=== PATIENT | male | born 1970 | race Caucasian/White ===

== ENCOUNTER 2017-09-05 17:55 | Inpatient (IN) | payer SELFPAY ==
[2017-09-05] MEDS ORDERED: hydrALAZINE 20 MG/ML VIAL ONE (18:25)
[2017-09-05 18:42] LABS: #Basophils 0.1 thou/uL (0.0-0.2); #Eosinphils 0.6 thou/uL (0.0-0.7); #Lymphocytes 1.1 thou/uL (1.20-3.40); #Monocytes 0.4 thou/uL (0.11-0.59); #Neutrophils 3.9 thou/uL (1.40-6.50); %Basophils 1.4 % (0.0-1.0); %Eosinophils 9.4 % (0.0-10.0); %Lymphocytes 17.6 % (21.0-51.0); %Monocytes 7.2 % (0.0-10.0); %Neutrophils 64.4 % (42.0-75.0); Hemoglobin 13.3 g/dL (14.0-18.0); Mean Corpuscular HGB CONC 34.7 g/dL (32.0-36.0); Mean Corpuscular Hemoglobin 31.7 pg (27.0-31.0); Mean Corpuscular Volume 91.3 fL (78.0-98.0); Mean Platelet Volume 8.5 fL (7.4-10.4); Platelet Count 145 thou/uL (130-400); RBC Distribution Width 12.2 % (11.5-14.5); Red Blood Cell (RBC) Count 4.19 mill/uL (4.70-6.10)
[2017-09-05 19:01] LABS: ALT (SGPT) 53 U/L (8-55); AST (SGOT) 48 U/L (5-34); Alkaline Phosphatase 152 U/L (40-150); Anion Gap 13 mmol/L (10-20); BUN (Urea Nitrogen) 27 mg/dL (8.9-20.6); Bilirubin, Total 0.8 mg/dL (0.2-1.2); CK (CPK) 62 U/L (30-200); Calc. Creatinine Clearance 0 mL/min (70-130); Calcium 9.3 mg/dL (7.8-10.44); Carbon Dioxide 21 mmol/L (22-29); Chloride 104 mmol/L (98-107); Estimated GFR-MDRD 32; Globulin 3.1 g/dL (2.4-3.5); Glucose 93 mg/dL (70-105); Potassium 3.4 mmol/L (3.5-5.1); Protein, Total 7.1 g/dL (6.0-8.3); Sodium 135 mmol/L (136-145)
[2017-09-05 19:05] LABS: CKMB 1.8 ng/mL (0-6.6); Troponin I Less than 0.010 ng/mL (< 0.028)
[2017-09-05] MEDS ORDERED: Nitroglycerin 50 MG/250 ML BOT 250 ML ONE (19:36)
[2017-09-05] MEDS ORDERED: Ondansetron HCl/PF 4 MG/2 ML Vial IVP PRN (20:26)
[2017-09-05] MEDS ORDERED: Acetaminophen 325 MG TAB PO PRN (20:26)
--- NOTE | 2017-09-05 20:28 | RAD ---
CHEST ONE VIEW: HISTORY: Hypertensive crisis. COMPARISON: Chest radiograph from 08/01/2017. FINDINGS: The lungs are without focal air space consolidation, pneumothorax, or effusion. The cardiac silhouet te and the mediastinal contours are similar. No acute osseous abnormality. IMPRESSION: No acute intrathoracic abnormality. POS: HOME
[2017-09-05] MEDS ORDERED: niCARdipine HCl 25 MG in Sodium Chloride 0.9% 250 ML 240 ML IVPB SCH (20:30)
[2017-09-05] MEDS ORDERED: Carvedilol 25 MG TAB PO SCH (20:45)
[2017-09-05] MEDS ORDERED: hydrALAZINE 25 MG TAB PO SCH (21:00)
--- NOTE | 2017-09-05 21:06 | CT ---
CT BRAIN WITHOUT CONTRAST: HISTORY: Altered mental status. COMPARISON: CT brain from 08/01/2017. FINDINGS: There is no acute hemorrhage or infarct. No midline shift or mass effect. Extensive periventricular and deep white matter hypodensities are present. Old right lacunar infarct on the right. The calvarium is intact. The paranasal sinuses and mastoids are clear. IMPRESSION: Chronic changes. No acute intracranial abnormality. Chronic hypertension induced encephalopathy is a possibility. POS: HOME
[2017-09-05 21:29] LABS: Amphetamine Detected (NotDetected); Barbiturates Screen Not Detected (NotDetected); Benzodiazepine Screen Not Detected (NotDetected); Cocaine Metabolite Screen Not Detected (NotDetected); Medtox Control Line Valid? VALID (VALID); Medtox Reader # READER 1; Methadone Not Detected (NotDetected); Methamphetamine Detected (NotDetected); Opiate Screen Not Detected (NotDetected); Oxycodone Screen Not Detected (NotDetected); Phencyclidine (PCP) Not Detected (NotDetected); THC/Cannabinoid Screen Detected (NotDetected); Tricyclic Screen Not Detected (NotDetected)
[2017-09-05 23:03] VITALS: BMI 21.5
[2017-09-05] MEDS ORDERED: Melatonin 3 MG TAB PO SCH (23:30)
[2017-09-05 23:54] LABS: Amphetamine Detected (NotDetected); Barbiturates Screen Not Detected (NotDetected); Benzodiazepine Screen Not Detected (NotDetected); Cocaine Metabolite Screen Not Detected (NotDetected); Medtox Control Line Valid? VALID (VALID); Medtox Reader # READER 4; Methadone Not Detected (NotDetected); Methamphetamine Detected (NotDetected); Opiate Screen Not Detected (NotDetected); Oxycodone Screen Not Detected (NotDetected); Phencyclidine (PCP) Not Detected (NotDetected); THC/Cannabinoid Screen Detected (NotDetected); Tricyclic Screen Not Detected (NotDetected)
[2017-09-06 04:53] LABS: #Basophils 0.1 thou/uL (0.0-0.2); #Eosinphils 0.6 thou/uL (0.0-0.7); #Lymphocytes 1.1 thou/uL (1.20-3.40); #Monocytes 0.5 thou/uL (0.11-0.59); #Neutrophils 3.7 thou/uL (1.40-6.50); %Basophils 0.9 % (0.0-1.0); %Eosinophils 9.8 % (0.0-10.0); %Lymphocytes 18.6 % (21.0-51.0); %Monocytes 7.8 % (0.0-10.0); Hemoglobin 14.6 g/dL (14.0-18.0); Mean Corpuscular HGB CONC 34.1 g/dL (32.0-36.0); Mean Corpuscular Hemoglobin 31.3 pg (27.0-31.0); Mean Corpuscular Volume 91.8 fL (78.0-98.0); Mean Platelet Volume 8.4 fL (7.4-10.4); Platelet Count 148 thou/uL (130-400); RBC Distribution Width 12.4 % (11.5-14.5); Red Blood Cell (RBC) Count 4.69 mill/uL (4.70-6.10); White Blood Cell (WBC) Count 5.9 thou/uL (4.8-10.8)
[2017-09-06 05:31] LABS: Anion Gap 13 mmol/L (10-20); BUN (Urea Nitrogen) 26 mg/dL (8.9-20.6); Calc. Creatinine Clearance 45 mL/min (70-130); Calcium 9.4 mg/dL (7.8-10.44); Carbon Dioxide 22 mmol/L (22-29); Chloride 106 mmol/L (98-107); Estimated GFR-MDRD 33; Glucose 112 mg/dL (70-105); Potassium 3.6 mmol/L (3.5-5.1); Sodium 137 mmol/L (136-145)
--- NOTE | 2017-09-06 06:04 | HP ---
PRIMARY CARE PHYSICIAN: The patient had no PCP. CHIEF COMPLAINT: Headache, nausea, and vomiting. TIME OF EVALUATION: 8:20 p.m. HISTORY OF PRESENT ILLNESS: This is a 46 years old male with a past medical history of hypertension, noncompliance, patient ran out of medication for a few weeks now to the hospital after having sever e headache, associated with nausea and vomiting, with no clear triggers, no alleviating factors. The patient was found to have a very high blood pressure with a systolic 245, diastolic 145, the patient had a headache that was 10/10, that has improved with a decrease in the blood pressure levels. He a lso reported some associated chest pain. That getting better with a decrease of the blood pressure. REVIEW OF SYSTEMS: Constitutional: No fever, no chills. Generalized weakness. Respiratory: No co ugh, no sputum production or shortness of breath. Cardiovascular: The patient has chest pain, no pa lpitations, no shortness of breath. Gastrointestinal: The patient any nausea, vomiting, no diarrhea , no abdominal pain. Central nervous system: The patient had headache, dizziness, occasional feelin g of lightheaded, no neuro weakness. Genitourinary: No burning on urination. Extremities: No leg swelling. PAST MEDICAL HISTORY: Hepatitis C, hypertension, non ST elevation myocardial infarction, kidney fail ure. PAST SURGICAL HISTORY: No surgical history. PSYCHIATRIC HISTORY: No previous psychiatric history. SOCIAL HISTORY: No alcohol, no drugs, every day smoker. FAMILY HISTORY: Reviewed and noncontributory to current presentation. KNOWN ALLERGIES: No known drug allergies. REPORTED MEDICATIONS: Hydralazine 100 mg 3 times a day. PHYSICAL EXAMINATION: VITAL SIGNS: Blood pressure on presentation 230/137, heart rate 65, respiratory rate was 16, tempera ture 98. Headache was 10/10. GENERAL APPEARANCE: The patient is alert, oriented, in mild distress due to headache and chest pain. HEENT: Eyes: Normal conjunctiva. Moist oral mucosa. Anicteric. NECK: No JVD. RESPIRATORY: Bilateral air entry. No rales, no wheezing. Symmetric expansion. CARDIOVASCULAR: The patient is very hypertensive. Normal rate, regular rhythm. No murmurs, no gall op, no edema. ABDOMEN: Soft, normal bowel sounds. MUSCULOSKELETAL: Baseline range of motion and strength. No tenderness. SKIN: Warm and intact. No pallor rash or redness. NEUROLOGIC: Baseline sensory. No evidence of any new focal weakness; however, the patient has head ache and reported blurred vision. Cranial nerves seem to be intact. PSYCHIATRIC: Good mood. No anxiety, oriented, optimal judgement. EKG was reviewed and discussed with the performance physician from ER. The patient has normal sinus rhythm with a rate of 66, no evidence of any acute ischemic event, left heart enlargement. CARDIOLOGY INTERPRETATION: Head CT was negative without contrast. Chest x-ray showed no infiltrates , no pneumothorax, and no acute findings. LABORATORY DATA: Reviewed. The patient has a white count of 10, hemoglobin 13.3, MCV 91.3, platelet count 145. Chemistry: Sodium 135, potassium 3.4, chloride 104, carbon dioxide 21, anion gap 13, BU N 27, creatinine 2.27, in previous admission the patient has creatinine 2.55. LFTs were normal. Tro ponin has been negative x3. Beta natriuretic peptide 788. Urine drug screen: The patient has metha mphetamine positive and cannabinoids. ASSESSMENT AND PLAN: The patient will be placed in the hospital with the following medical problems. 1. Hypertensive emergency. The patient presented with systolic 245 with diastolic 145, likely chris ered by drug intoxication, and also probably a component from patient has been noncompliant with bloo d pressure medications, but the patient presented with acute encephalopathy secondary to hypertension given nausea, vomiting, headache, dizziness, blurry vision that improved with lowering the blood pre ssure. We will continue Cardene drip, monitor in ICU or adjust the treatment as needed. 2. Methamphetamine abuse, patient denies consuming drugs, this can be discussed with the patient onc e more stable to advise him to stop using drugs. 3. Hyponatremia, 135, is normal, we will monitor, no need for any acute intervention. 4. Mild hypokalemia, potassium 3.4, we will replace electrolytes as needed. 5. Chronic kidney disease. The patient has BUN 27, creatinine 2.27 that was noted on the previous a dmissions of creatinine, we will reconcile home medications, we will adjust the treatment as needed. 6. Medical noncompliance. He has been advised to follow up with primary doctor and take his medicat ions every day. 7. Deep venous thrombosis prophylaxis. Critical care time spent more than 10 minutes and bedside assessment, coordination of care, stabiliza tion of patient and review ____ records.
[2017-09-06] MEDS ORDERED: Carvedilol 25 MG TAB PO SCH ×2 (08:00→09:00)
[2017-09-06] MEDS: hydrALAZINE 25 MG TAB PO SCH ×2 (08:17→17:20)
[2017-09-06] MEDS ORDERED: NIFEdipine XL 60 MG TAB PO SCH (09:00)
[2017-09-06] MEDS ORDERED: cloNIDine 0.1 MG TAB PO SCH ×2 (12:00→21:00)
[2017-09-06 17:22] VITALS: BP 133/85
[2017-09-06 18:08] VITALS: TEMP 97.8
--- NOTE | 2017-09-07 01:08 | CON ---
DATE OF CONSULTATION: 09/06/2017 HISTORY OF PRESENT ILLNESS: Mr. Chun is a 46-year-old male who was admitted with hypertension, head ache, nausea, and vomiting. He admitted to using methamphetamine the day prior to admission, but saying what the day he was admit emilee. He admits that he is a heavy meth user in the past and said he has been "trying to cut back," but yusuf y quickly acknowledges that he has problems saying note to his friends, who also used meth. He says he feels back to his baseline. PAST MEDICAL HISTORY: Remarkable for hepatitis C, hypertension, myocardial infarction and kidney dang lure that is chronic. He is not on dialysis. He smokes and actually called one of his friends who give him a ride home today and asked him to pick pack of cigarettes on the way to the hospital. He was supposed to be on hydralazine, but admits he was not taking medicine. He says he is not going to the doctor and told the nurses that he has no plans to follow up with a ph ysician. PHYSICAL EXAMINATION: VITAL SINGS: Blood pressure 120/85, heart rate 68, respiratory rates in the teens. HEAD AND NECK: Unremarkable. LUNGS: Clear. HEART: Regular rhythm, no S3. He does have an S4. ABDOMEN: Soft and nontender. EXTREMITIES: Without clubbing, cyanosis, or edema. LABORATORY DATA: White count 5.9, hemoglobin 14.6, platelets 148. Creatinine is 2.21, is 2.27 on ad mission, his creatinine has been between 2 and 3.8 since early last year. IMPRESSION: 1. Chronic methamphetamine use. 2. Likely hypertensive renal disease. 3. Medical noncompliance. Discussed his risk ____ intracranial hemorrhage if he continues to use meth and not take hypertension medications. There is no reason to keep him in the hospital given that he is back to his baseline. Prescription f or Catapres was written by me for 1 month, have to find a physician to care for him as an outpatient. He is stable for discharge in my opinion.
== END 2017-09-06 18:00 | disposition home or self-care (01) | DRG 305 ==
LOC: ERS 17:55 → CCU 22:28
PROVIDERS: ADMIT Hospitalist; ATTEND Hospitalist
DX: I16.1 Hypertensive emergency (principal); E87.1 Hypo-osmolality and hyponatremia; I12.9 Hypertensive chronic kidney disease with stage 1 through stage 4 chronic kidney disease, or unspecified chronic kidney disease; N18.9 Chronic kidney disease, unspecified; F15.10 Other stimulant abuse, uncomplicated; B18.2 Chronic viral hepatitis C; F17.210 Nicotine dependence, cigarettes, uncomplicated; I25.2 Old myocardial infarction; Z91.14 Patient's other noncompliance with medication regimen; Z79.899 Other long term (current) drug therapy
CPT/HCPCS: 36415; 70450; 71045; 80048; 80053; 80306; 82553; 83880; 84484; 85025; 93005; 96365; 96366; 96374; J0360; J7050

== ENCOUNTER 2017-10-21 16:54 | Inpatient (IN) | payer SELFPAY ==
[2017-10-21 17:21] LABS: #Basophils 0.1 thou/uL (0.0-0.2); #Eosinphils 0.3 thou/uL (0.0-0.7); #Lymphocytes 0.7 thou/uL (1.20-3.40); #Monocytes 0.3 thou/uL (0.11-0.59); #Neutrophils 4.7 thou/uL (1.40-6.50); %Basophils 1.2 % (0.0-1.0); %Eosinophils 4.3 % (0.0-10.0); %Lymphocytes 11.5 % (21.0-51.0); %Monocytes 5.6 % (0.0-10.0); %Neutrophils 77.5 % (42.0-75.0); Hemoglobin 14.5 g/dL (14.0-18.0); Mean Corpuscular HGB CONC 34.8 g/dL (32.0-36.0); Mean Corpuscular Hemoglobin 31.8 pg (27.0-31.0); Mean Corpuscular Volume 91.5 fL (78.0-98.0); Mean Platelet Volume 7.9 fL (7.4-10.4); Platelet Count 221 thou/uL (130-400); RBC Distribution Width 12.1 % (11.5-14.5); Red Blood Cell (RBC) Count 4.57 mill/uL (4.70-6.10)
--- NOTE | 2017-10-21 17:38 | RAD ---
CHEST ONE VIEW: 10/21/17 HISTORY: Hypertension. COMPARISON: 09/05/17. FINDINGS: The cardiac silhouette is magnified by projection. Pulmonary vasculature unremarkable. Mediastinum is midline. No lobar consolidation or evidence of pneumothorax. The cardiac technologist leads overlie the c hest. IMPRESSION: No active cardiopulmonary abnormalities are demonstrated. POS: KEL
[2017-10-21 17:44] LABS: ALT (SGPT) 42 U/L (8-55); AST (SGOT) 34 U/L (5-34); Albumin 3.8 g/dL (3.5-5.0); Alkaline Phosphatase 106 U/L (40-150); Anion Gap 15 mmol/L (10-20); BUN (Urea Nitrogen) 30 mg/dL (8.9-20.6); Bilirubin, Total 0.5 mg/dL (0.2-1.2); CK (CPK) 85 U/L (30-200); Calc. Creatinine Clearance 0 mL/min (70-130); Calcium 9.4 mg/dL (7.8-10.44); Carbon Dioxide 15 mmol/L (22-29); Chloride 108 mmol/L (98-107); Estimated GFR-MDRD 29; Globulin 3.7 g/dL (2.4-3.5); Glucose 106 mg/dL (70-105); Potassium 4.5 mmol/L (3.5-5.1); Protein, Total 7.5 g/dL (6.0-8.3); Sodium 133 mmol/L (136-145)
[2017-10-21 17:48] LABS: CKMB 2.9 ng/mL (0-6.6); Troponin I Less than 0.010 ng/mL (< 0.028)
[2017-10-21] MEDS ORDERED: diphenhydrAMINE 25 MG CAP ONE (18:00)
[2017-10-21] MEDS ORDERED: Metoclopramide HCl 10 MG TAB ONE (18:00)
[2017-10-21] MEDS ORDERED: Nitroglycerin 2% Ointment 1 INCH/1 GM Packet ONE (18:11)
[2017-10-21] MEDS ORDERED: Labetalol HCl 100 MG/20 ML VIAL ONE (18:45)
[2017-10-21] MEDS ORDERED: Senokot 8.6 MG TAB PO PRN ×2 (18:55)
[2017-10-21] MEDS ORDERED: Acetaminophen 325 MG TAB PO PRN (18:55)
[2017-10-21] MEDS ORDERED: cloNIDine 0.1 MG TAB PO PRN (18:55)
[2017-10-21] MEDS ORDERED: Benzonatate 100 MG CAP PO PRN (18:55)
[2017-10-21] MEDS ORDERED: Diabetic Tussin 200 MG/10 ML UDCUP PO PRN (18:55)
[2017-10-21] MEDS ORDERED: Mag-Al 1200 mg/1200 mg/30 ML UDCUP PO PRN (18:55)
[2017-10-21] MEDS ORDERED: Ondansetron HCl/PF 4 MG/2 ML Vial IVP PRN ×2 (18:55)
[2017-10-21] MEDS ORDERED: hydrALAZINE 20 MG/ML VIAL SLOW IVP PRN (18:55)
[2017-10-21] MEDS ORDERED: Bisacodyl 5 MG TAB PO PRN ×2 (18:55)
[2017-10-21] MEDS ORDERED: Nitroglycerin 0.4 MG TAB (25 Tab Bottle) SL PRN (18:55)
[2017-10-21] MEDS ORDERED: Calcium Carbonate 500 MG ChewTAB PO PRN (18:55)
[2017-10-21] MEDS ORDERED: traMADol HCl 50 MG TAB PO PRN (18:55)
[2017-10-21] MEDS ORDERED: hydrALAZINE 20 MG/ML VIAL ONE (19:27)
--- NOTE | 2017-10-21 20:05 | HP ---
DATE OF ADMISSION: 10/21/2017 PRIMARY CARE PHYSICIAN: None. CHIEF COMPLAINT: Headache and high blood pressure. HISTORY OF PRESENT ILLNESS: Mr. Chun is a 46-year-old male with known history of uncontrolled hyper tension and drug abuse as well as significant medical noncompliance, who presented to the ER with abo ve-mentioned complaint. History is mainly obtained by the patient himself and electronic medical rec ords have been reviewed. He was last admitted to our facility last month when he was seen for [facility] issues with hypertensive urgency. He was given prescription for clonidine and likely he was discha rge or left AMA, I am not sure. Today, he came back again with similar symptoms. He reports that he was seen in the emergency room a bout a month ago when he was found to have significant hypertension and was put on medications. He r eports that he took all the medications about a week ago when he ran out. Since then he has been not icing that he has significant headache and his blood pressure has been running very high. Upon presentation to the Emergency Room, his systolic blood pressure was in the 200 range and diastol ic in the 140s. He has received multiple medications since then and is now being admitted for [facility] evaluation and care. Please note that the emergency room referring nurse practitioner, Ms. Wallace has told me that the patient was being admitted for chest pain and ACS rule out, but the patient: At th is time, does not give any history of chest pain, chest discomfort, chest heaviness or any other symp toms suggestive of an ongoing acute coronary episode. His EKG and cardiac enzymes done in the emergency room are unremarkable. He does have elevated BNP a t 582, but is currently asymptomatic. PAST MEDICAL HISTORY: 1. Hypertension, uncontrolled. 2. History of hepatitis C. 3. Substance abuse. 4. Historically non-ST elevation myocardial, I am not sure this is a true diagnosis or not. 5. Chronic kidney disease, stage 3. 6. Severe left ventricular hypertrophy, likely hypertensive cardiomyopathy. 7. Medication noncompliance. PAST SURGICAL HISTORY: Denies any surgeries reviewed with the patient. PSYCHIATRIC HISTORY: No anxiety, no depression. SOCIAL HISTORY: He drinks occasionally and currently smokes 1 pack of cigarettes per day. Last meth amphetamine use was 2 days ago with possibly cocaine. FAMILY HISTORY: No significant family history of premature coronary artery disease or stroke. ALLERGIES: No known medication allergies. CURRENT MEDICATIONS: None. REVIEW OF SYSTEMS: Twelve-point review of system is done, it is negative except for those mentioned in the history and physical. LABORATORY DATA: CBC shows WBCs at 6, hemoglobin 14.5, platelet 221. Serum chemistry: Sodium 133, chloride 108, bicarb 15, BUN 30, creatinine 2.43, which seems to be at baseline. Cardiac enzymes unr emarkable. BNP 582, lipase 39. Chest x-ray by my review has no evidence to suggest pleural effusion , edema or infiltrate. Significant left ventricular hypertrophy is seen. A 12-lead EKG per the [facility] physician was unremarkable with normal sinus rhythm, no acute ST or T-wave changes. I do not have that for my evaluation at this time. PHYSICAL EXAMINATION: VITAL SIGNS: Upon presentation, blood pressure 175/127, pulse of 74, respirations 20, saturating 99% on room air. GENERAL: No acute distress, awake, alert, and oriented x3. He does appear somewhat ill. HEENT: Mucous membrane is moist and pink. No oropharyngeal exudate or erythema. Head is normocepha lic, atraumatic. Pupils equal, reactive to light and accommodation. Extraocular movement intact. NECK: Supple without any lymphadenopathy, JVD or bruit. CHEST: Clear to auscultation without any wheezing, rales, or rhonchi. Rate and rhythm is regular wi thout any murmur, rubs or gallops. ABDOMEN: Soft, nontender, nondistended with positive bowel sounds. EXTREMITIES: Free of any cyanosis, clubbing, or edema. NEUROLOGIC: Nonfocal. SKIN: Free of any rashes or bruises. Feels warm and dry to touch. IMPRESSION AND PLAN: 1. Hypertensive urgency. The patient's symptoms are exacerbated because of withdrawal symptoms from taking antihypertensives and then stopping as well as concomitant use of methamphetamines and possib ly cocaine. At this time, we are trying to get his blood pressure under better control with IV antih ypertensives in the emergency room. If it remains uncontrolled, he would not need to be started on n icardipine drip and admitted to be CCU. For now, he will be admitted to telemetry unit and we would add p.r.n. antihypertensives and start him on hydrochlorothiazide; lisinopril and Procardia and adjus t the medications as necessary. We will avoid beta blockers because of concomitant use of cocaine. Use benzodiazepine p.r.n. as well. We will use clonidine as needed as well as IV p.r.n. hydralazine. 2. Acute on chronic renal failure. The patient's creatinine is slightly bumped up from baseline, li hillary secondary to uncontrolled hypertension and end-organ damage. 3. History of hepatitis C, unknown status, likely chronic. 4. Chronic kidney disease, creatinine seems to be at baseline. Likely hypertensive chronic kidney d isease. 5. Left ventricular hypertrophy secondary to hypertension, currently asymptomatic. No evidence to s uggest acute coronary syndrome. We will continue to trend serial cardiac enzymes that the patient is asymptomatic. 6. History of drug abuse. 7. Patient has been extensively counseled and we will revisit this issue once he is ready for discha rge. 8. Noncompliance. 9. History of hypertension, restart medications as above. The patient will be provided prescription and he will be set up for outpatient followup with the primary care physician. 10. Code status: FULL CODE. Discussed with the patient. 11. Deep venous thrombosis and gastrointestinal prophylaxis. DISPOSITION: Mr. Chun is currently being admitted to the hospital for uncontrolled hypertension and hypertensive urgency Further management will depend upon his clinical course. Estimated length of stay at this time is at least 2-3 midnights.
[2017-10-21] MEDS ORDERED: Nitroglycerin 50 MG/250 ML BOT 250 ML ONE (20:46)
--- NOTE | 2017-10-21 20:46 | PDOC.EVN ---
Event Note - Event Note Event Note: Follow up note. Was called by ED to evaluate Hypertensive Emergency patient with BP >215 systolic. Patient BP cannot be controlled with lebatolol. Instructed ED to give nitro drip to keep BP 180 systolic and consult neurology. Will allow for permissive hypertension and follow up the patient in the Unit.
[2017-10-21 21:12] LABS: Troponin I Less than 0.010 ng/mL (< 0.028)
[2017-10-21 22:23] LABS: Amphetamine Detected (NotDetected); Barbiturates Screen Not Detected (NotDetected); Benzodiazepine Screen Not Detected (NotDetected); Cocaine Metabolite Screen Detected (NotDetected); Medtox Control Line Valid? VALID (VALID); Medtox Reader # READER 1; Methadone Not Detected (NotDetected); Methamphetamine Detected (NotDetected); Opiate Screen Not Detected (NotDetected); Oxycodone Screen Not Detected (NotDetected); Phencyclidine (PCP) Not Detected (NotDetected); THC/Cannabinoid Screen Detected (NotDetected); Tricyclic Screen Not Detected (NotDetected)
[2017-10-21 23:39] VITALS: BMI 21.6
[2017-10-21] MEDS ORDERED: Nitroglycerin 50 MG/250 ML BOT 250 ML IVPB PRN (23:46)
[2017-10-22] MEDS: HYDROcodone/Acetaminophen 5/325 mg Tablet PO PRN ×2 (00:35→04:04)
[2017-10-22] MEDS: Lisinopril 20 MG TAB PO SCH ×3 (00:35→20:49)
[2017-10-22] MEDS: Hydrochlorothiazide 25 MG TAB PO SCH ×2 (00:35→07:35)
[2017-10-22] MEDS: Famotidine 20 MG TAB PO SCH ×2 (00:35→20:49)
[2017-10-22 03:52] LABS: #Basophils 0.1 thou/uL (0.0-0.2); #Eosinphils 0.3 thou/uL (0.0-0.7); #Lymphocytes 0.9 thou/uL (1.20-3.40); #Monocytes 0.4 thou/uL (0.11-0.59); #Neutrophils 5.1 thou/uL (1.40-6.50); %Eosinophils 4.1 % (0.0-10.0); %Monocytes 6.1 % (0.0-10.0); %Neutrophils 75.8 % (42.0-75.0); Hemoglobin 13.3 g/dL (14.0-18.0); Mean Corpuscular HGB CONC 34.3 g/dL (32.0-36.0); Mean Corpuscular Hemoglobin 31.3 pg (27.0-31.0); Mean Corpuscular Volume 91.3 fL (78.0-98.0); Mean Platelet Volume 8.1 fL (7.4-10.4); Platelet Count 222 thou/uL (130-400); Red Blood Cell (RBC) Count 4.27 mill/uL (4.70-6.10); White Blood Cell (WBC) Count 6.7 thou/uL (4.8-10.8)
[2017-10-22 04:15] LABS: Anion Gap 12 mmol/L (10-20); BUN (Urea Nitrogen) 29 mg/dL (8.9-20.6); Calc. Creatinine Clearance 39 mL/min (70-130); Calcium 9.3 mg/dL (7.8-10.44); Carbon Dioxide 18 mmol/L (22-29); Chloride 108 mmol/L (98-107); Estimated GFR-MDRD 28; Glucose 151 mg/dL (70-105); Potassium 4.2 mmol/L (3.5-5.1); Sodium 134 mmol/L (136-145)
[2017-10-22] MEDS: NIFEdipine XL 30 MG TAB PO SCH ×2 (07:35→09:15)
[2017-10-22] MEDS: Lorazepam 1 MG TAB PO PRN ×2 (07:36→21:15)
[2017-10-22] MEDS ORDERED: Enoxaparin Sodium 40 MG/0.4 ML SYRINGE SC SCH (09:00)
[2017-10-22] MEDS: hydrALAZINE 25 MG TAB PO SCH ×3 (09:07→20:48)
[2017-10-22] MEDS: cloNIDine 0.1 MG TAB PO SCH ×2 (09:07→20:49)
[2017-10-22] MEDS ORDERED: NIFEdipine XL 30 MG TAB PO SCH (09:15)
[2017-10-22] MEDS: NIFEdipine XL 60 MG TAB PO SCH (09:16)
[2017-10-22] MEDS ORDERED: niCARdipine 40MG In NaCl 40 MG/200 ML BAG IVPB SCH (10:00)
[2017-10-22] MEDS: Sodium Chloride 0.9% 1,000 ML IV SCH ×3 (10:22→23:15)
[2017-10-22] MEDS: Heparin 5,000 UNITS/ML VIAL SC SCH ×2 (10:27→20:49)
--- NOTE | 2017-10-22 10:48 | CON ---
DATE OF CONSULTATION: 10/22/2017 REASON FOR CONSULTATION: Hypertension, out of control. HISTORY OF PRESENT ILLNESS: This patient was admitted to the hospital yesterday. He has been seen by our service several times in the past. He is 46 years old. He has hypertension, but does not see a doctor as an outpatient. He basically relies on the hospital to get his antihypertensive medications and when he runs out, he ends up back in the hospital. The patient is also a heavy substance abuse user including amphetamines, methamphetamines, cocaine and cannabinoids. PAST MEDICAL HISTORY: 1. Drug abuse. 2. Hypertension. 3. Hepatitis C. 4. Non-ST segment elevation myocardial infarction. 5. Chronic kidney disease. 6. LVH with diastolic dysfunction. PAST SURGICAL HISTORY: None. SOCIAL HISTORY: Substance abuse history as outlined above. He smokes 1 pack per day, drinks alcohol occasionally. FAMILY MEDICAL HISTORY: Unremarkable. ALLERGIES: None. MEDICATIONS PRIOR TO ADMISSION: None. REVIEW OF SYSTEMS: Otherwise, negative except for headache. PHYSICAL EXAMINATION: VITAL SIGNS: Temperature 97.6, pulse 76, blood pressure 182/97. He is currently on nitroglycerin drip, which is not affecting his blood pressure very much. HEENT: Pupils react. Sclerae are anicteric. Oropharynx clear. NECK: No adenopathy or JVD. CARDIAC: S1, S2 regular, 3/6 systolic murmur. LUNGS: Clear without wheezing or rhonchi. ABDOMEN: Soft, nontender, nondistended. EXTREMITIES: No clubbing, cyanosis, or edema. Multiple tattoos throughout. X-RAY FINDINGS: Chest x-ray demonstrates a normal heart size, no mass, effusion or infiltrate. LABORATORY DATA: Drug screen positive for amphetamines, methamphetamines, cocaine and cannabinoids. White blood cell count 6.7, hematocrit 38.9, platelet count 222. Sodium 134, potassium 4.2, chloride 108, CO2 18, BUN 29, creatinine 2.5, glucose 151. BNP 582. ASSESSMENT: 1. Hypertension, out of control. 2. Probably some degree of volume depletion. 3. Chronic kidney disease. 4. Substance abuse. PLAN: 1. Switch the nitroglycerin drip to a Cardene drip as that will be more effective. 2. Concurrently, continue his antihypertensive medications and hopefully wean the Cardene drip as his oral medications begin to kick in. 3. Start him on IV fluids as he is probably intravascularly depleted. 4. Follow his laboratory results. 5. Change Lovenox to heparin given chronic renal insufficiency. 70 minutes time was spent on this consult. Of that time >50% was spent with the patient, and/or on the patient's hospital unit MTDD
--- NOTE | 2017-10-22 11:50 | PDOC.PN ---
- Subjective Encounter Start Date: 10/22/17 Encounter Start Time: 11:49 Subjective: feels OK. no new complaints -: Transferred to CCu last night for uncontrolled HTN -: RN reports poor urine output - Objective MAR Reviewed: Yes Vital Signs & Weight: Vital Signs (12 hours) Temp Pulse Resp BP Pulse Ox 10/22/17 09:17 72 182/137 H 18 09:16 72 182/137 H 10/22/17 09:15 72 182/137 H 10/22/17 09:07 72 182/137 H 10/22/17 07:53 97.6 F 72 17 97 10/22/17 07:35 202/132 H 10/22/17 07:34 202/132 H 10/22/17 07:00 97.6 F 10/22/17 04:04 202/132 H 10/22/17 00:35 188/130 H Weight Weight 159 lb 6.307 oz Most Recent Monitor Data Heart Rate from ECG 89 NIBP 170/101 NIBP BP-Mean 123 Respiration from ECG 23 SpO2 96 I&O: 10/21/17 10/22/17 10/23/17 06:59 06:59 06:59 Intake Total 667 332.1 Balance 667 332.1 Result Diagrams: 10/22/17 03:18 10/22/17 03:18 Additional Labs: Laboratory Tests 08/01/17 09/05/17 09/06/17 11:59 18:32 04:30 Creatinine 2.55 H 2.27 H 2.21 H Ur Amphetamines Screen U Methamphetamines Scrn U Cocaine Metab Screen U Cannabinoids Screen 10/21/17 10/21/17 10/22/17 17:12 22:02 03:18 Creatinine 2.43 H 2.50 H Ur Amphetamines Screen Detected H U Methamphetamines Scrn Detected H U Cocaine Metab Screen Detected H U Cannabinoids Screen Detected H Phys Exam - Physical Examination Constitutional: NAD HEENT: PERRLA, moist MMs, sclera anicteric, TM's clear, oral pharynx no lesions Neck: no nodes, no JVD, supple, full ROM Respiratory: no wheezing, no rales, no rhonchi, clear to auscultation bilateral Cardiovascular: RRR, no significant murmur, no rub Gastrointestinal: soft, non-tender, no distention, positive bowel sounds Musculoskeletal: no edema, pulses present Neurological: non-focal, normal sensation, moves all 4 limbs Psychiatric: normal affect, A&O x 3 Skin: no rash Dx/Plan (1) Hypertensive emergency Code(s): I16.1 - HYPERTENSIVE EMERGENCY Status: Acute (2) [place]-tv-nxaoccv renal failure Code(s): N17.9 - ACUTE KIDNEY FAILURE, UNSPECIFIED; N18.9 - CHRONIC KIDNEY DISEASE, UNSPECIFIED Status: Acute Comment: Mild improvement in creatinine today. Renal consulted. (3) Dehydration Code(s): E86.0 - DEHYDRATION Status: Acute (4) Hepatitis C Code(s): B19.20 - UNSPECIFIED VIRAL HEPATITIS C WITHOUT HEPATIC COMA Status: Chronic (5) Tobacco abuse Code(s): Z72.0 - TOBACCO USE Status: Acute (6) Amphetamine abuse Code(s): F15.10 - OTHER STIMULANT ABUSE, UNCOMPLICATED Status: Chronic - Plan out of bed/ambulate, DVT proph w/heparin, DVT proph w/SCDs check PVR to r/o outlet obstruction.started on IVF.monitor UO -: restart hydralazine,clonidine.Increase procardia -: Stop HCTZ. cont Lisinopril.Avoid Bb d/t cocaine use -: Nephrology consulted for stremlining BP meds -: counseeling for ongoing drug,tobacco abuse * . Review of Systems - Review of Systems Constitutional: negative: fever, chills, sweats, weakness, malaise, other Respiratory: negative: Cough, Dry, Shortness of Breath, Hemoptysis, SOB with Excertion, Pleuritic Pain, Sputum, Wheezing Cardiovascular: negative: chest pain, palpitations, orthopnea, paroxysmal nocturnal dyspnea, edema, light headedness, other Gastrointestinal: negative: Nausea, Vomiting, Abdominal Pain, Diarrhea, Constipation, Melena, Hematochezia, Other Genitourinary: negative: Dysuria, Frequency, Incontinence, Hematuria, Retention , Other Musculoskeletal: negative: Neck Pain, Shoulder Pain, Arm Pain, Back Pain, Hand Pain, Leg Pain, Foot Pain, Other Skin: negative: Rash, Lesions, Lit, Bruising, Other Neurological: negative: Weakness, Numbness, Incoordination, Change in Speech, Confusion, Seizures, Other - Medications/Allergies Allergies/Adverse Reactions: Allergies Allergy/AdvReac Type Severity Reaction Status Date / Time No Known Allergies Allergy Verified 10/22/17 00:02 Medications: Current Medications Acetaminophen (Tylenol) 650 mg PO Q4H PRN PRN Reason: Headache/Fever or Pain Hydrocodone Bitart/Acetaminophen ([place] 5/325) 1 tab PO Q4H PRN PRN Reason: Moderate Pain (4-6) Last Admin: 10/22/17 04:04 Dose: 1 tab Al Hydroxide/Mg Hydroxide (Maalox) 30 ml PO Q6H PRN PRN Reason: Heartburn or Indigestion Benzonatate (Tessalon) 100 mg PO Q4H PRN PRN Reason: Cough Bisacodyl (Dulcolax) 10 mg PO DAILYPRN PRN PRN Reason: Constipation Calcium Carbonate (Tums) 1,000 mg PO Q4H PRN PRN Reason: Heartburn or Indigestion Clonidine (Catapres) 0.1 mg PO Q4H PRN PRN Reason: Systolic BP > 160 Last Admin: 10/22/17 04:04 Dose: 0.1 mg Clonidine (Catapres) 0.1 mg PO BID [facility] Last Admin: 10/22/17 09:07 Dose: 0.1 mg Famotidine (Pepcid) 20 mg PO QPM [facility] Last Admin: 10/22/17 00:35 Dose: 20 mg Guaifenesin (Robitussin Sf) 200 mg PO Q4H PRN PRN Reason: Cough Heparin Sodium (Porcine) (Heparin) 5,000 units SC BID [facility] Last Admin: 10/22/17 10:27 Dose: 5,000 units Hydralazine HCl (Apresoline) 10 mg SLOW IVP Q4H PRN PRN Reason: Systolic BP > 180 Hydralazine HCl (Apresoline) 100 mg PO TID [facility] Last Admin: 10/22/17 09:07 Dose: 100 mg Sodium Chloride (Normal Saline 0.9%) 1,000 mls @ 150 mls/hr IV .Q6H40M [facility] Last Admin: 10/22/17 10:22 Dose: 1,000 mls Nicardipine HCl 50 mg/ Sodium (Chloride) 250 mls @ 0 mls/hr IVPB INF [facility] Lisinopril (Zestril) 20 mg PO BID [facility] Last Admin: 09/08/18 07:34 Dose: 20 mg Lorazepam (Ativan) 1 mg PO Q4H PRN PRN Reason: Anxiety/Agitation Last Admin: 10/22/17 07:36 Dose: 1 mg Nifedipine (Procardia Xl) 60 mg PO DAILY [facility] Last Admin: 10/22/17 09:16 Dose: Not Given Nitroglycerin (Nitrostat) 0.4 mg SL Q5MIN PRN PRN Reason: Chest Pain Ondansetron HCl (Zofran) 4 mg IVP Q6H PRN PRN Reason: Nausea/Vomiting Senna (Senokot) 2 tab PO HSPRN PRN PRN Reason: Constipation Sodium Chloride (Flush - Normal Saline) 10 ml IVF Q12HR [facility] Last Admin: 10/22/17 09:17 Dose: 10 ml Sodium Chloride (Flush - Normal Saline) 10 ml IVF PRN PRN PRN Reason: Saline Flush Tramadol HCl (Ultram) 50 mg PO Q4H PRN PRN Reason: Moderate Pain (4-6)
[2017-10-22] MEDS: niCARdipine HCl 50 MG in Sodium Chloride 0.9% 250 ML 230 ML IVPB SCH ×2 (15:17→20:48)
--- NOTE | 2017-10-22 15:23 | CON ---
DATE OF CONSULTATION: 10/22/2017 NEPHROLOGY CONSULTATION REASON FOR CONSULTATION: Elevated creatinine. HISTORY OF PRESENT ILLNESS: This is a 46-year-old gentleman who presented to the hospital for hypert ension. The patient has had a history of CKD with elevated creatinine in the past. The patient's cr eatinine was 2.4 yesterday and 2.5 today. Prior baseline was around 2.1. His last episode of acute kidney injury was in 09/2016 with 3.8. His normal creatinine was in 03/2016 and since then his GFR h as dropped by at least 50%. The patient has a history of major drug use. PAST MEDICAL HISTORY: Hypertension, hepatitis C, known elevation, MT, LVH. SOCIOECONOMIC HISTORY: No alcohol use, drug use. FAMILY HISTORY: Negative for ESRD. ALLERGIES: Reviewed. REVIEW OF SYSTEMS: A 15-point review of systems was performed and was negative except for positives noted above. GENERAL: Weakness- HEAD: Headache- NECK: No swelling or lumps. NOSE: No epistaxis or discharge. EYES: No diplopia or pain. RESPIRATORY: Dyspnea- CARDIOVASCULAR: Chest pain- GASTROINTESTINAL: Nausea- /[employer]: Hematuria- MUSCULOSKELETAL: No joint pain. NEUROPSYCHIATIC SYSTEMS: No suicidal ideation. No ideation. SKIN: Denies any rash or ulcer. CONSTITUTIONAL: No fever or chills. PHYSICAL EXAMINATION: GENERAL: Patient is awake, alert. VITAL SIGNS: Afebrile, pulse 82, breathing 16, blood pressure 173/99. HEAD/NECK: Normocephalic. Atraumatic. EYES: EOMI. No deformity. EARS: Clear. No ulcers. NOSE: Intact. No lesions. MOUTH: Clear. No discharge. THROAT: Clear. No exudate. LUNGS: Clear. No crackles. CARDIAC: S1, S2. No rub. ABDOMEN: Benign. BS+. GENITALIA/RECTUM: Anton absent. BACK/EXTREMITIES: Edema 0+ Ulcer- NEUROLOGICAL: Alert and motor intact. SKIN: Rash- Bruise- LYMPHATICS: Edema- Ulcer- LABORATORY DATA: Show hemoglobin is 13.3 and creatinine 2.5. ASSESSMENT AND RECOMMENDATIONS: 1. Acute kidney injury with chronic kidney disease, most likely multifactorial due to hypertensive n ephrosclerosis. 2. Hypertension. Titrate the patient's current medication. 3. Anemia, stable. 4. Medications based on glomerular filtration rate are appropriate. We will evaluate for proteinuri a. No indication for dialysis.
--- NOTE | 2017-10-22 16:13 | ULT ---
BILATERAL RENAL ULTRASOUND COMPLETE: 10/22/17 HISTORY: 46-year-old male with history of acute kidney insufficiency and questionable renal lesion on CT. Right kidney measures 10.0 x 4.8 x 4.6 cm. The left kidney measures 10.3 x 5.8 x 4.8 cm. The liver ap pears to be enlarged with coarse heterogeneous echogenicity consistent with nonspecific hepatocellula r disease. Renal cortices appear hyperechoic bilaterally, evidence for nonspecific chronic renal dise ase. Small left renal cyst. There is a somewhat focal area of nodularity in the upper pole of the lef t kidney. This is nonspecific, it does not have the appearance of a typical cyst. Possibilities inclu de that of a solid mass versus complicated cyst versus some prominent focal renal cortical thickening . This ultrasound evaluation does not adequately evaluate this. The urinary bladder appears unremarka ble with other than questionable borderline bladder wall thickening. Bilateral ureteral jets are seen . No renal hydronephrosis. IMPRESSION: No renal hydronephrosis. Increased renal cortical echogenicity evidence for nonspecific renal disease . Coarse liver echogenicity consistent with nonspecific hepatocellular disease. Approximately 2 cm di ameter slightly nodular area off the upper pole of the left kidney inadequately evaluated on this ronnie dy. This appears to be in the same location that was seen on the prior 04/25/[address] sca n in this regard is suggested. If the patient cannot have IV contrast, then noncontrast CT scan would be of benefit. Questionable mild urinary bladder wall thickening. No other acute process. POS: [facility]
[2017-10-23] MEDS: Sodium Chloride 0.9% 1,000 ML IV SCH (05:26)
[2017-10-23 05:33] LABS: Anion Gap 11 mmol/L (10-20); BUN (Urea Nitrogen) 26 mg/dL (8.9-20.6); Calc. Creatinine Clearance 36 mL/min (70-130); Calcium 8.8 mg/dL (7.8-10.44); Carbon Dioxide 20 mmol/L (22-29); Chloride 110 mmol/L (98-107); Estimated GFR-MDRD 26; Glucose 90 mg/dL (70-105); Potassium 4.8 mmol/L (3.5-5.1); Sodium 136 mmol/L (136-145)
[2017-10-23] MEDS: cloNIDine 0.1 MG TAB PO SCH ×2 (08:50→20:27)
[2017-10-23] MEDS: NIFEdipine XL 60 MG TAB PO SCH (08:58)
[2017-10-23] MEDS: hydrALAZINE 25 MG TAB PO SCH ×3 (08:59→20:27)
[2017-10-23] MEDS: Heparin 5,000 UNITS/ML VIAL SC SCH ×2 (09:00→20:29)
[2017-10-23] MEDS: Lisinopril 20 MG TAB PO SCH ×2 (09:00→20:28)
--- NOTE | 2017-10-23 09:38 | PRG ---
DATE OF SERVICE: 10/23/2017 SUBJECTIVE: He has been weaned off the Cardene drip. He is doing well, no complaints. PHYSICAL EXAMINATION: VITAL SIGNS: Temperature is 98.3, pulse 80, blood pressure 146/89. A 24-hour intake 4094, output 44 00. HEENT: Unremarkable. NECK: No JVD. CHEST: Clear. CARDIAC: S1 and S2 regular, without murmur. ABDOMEN: Soft, nontender. EXTREMITIES: No edema. LABORATORY DATA: Sodium 136, potassium 4.8, chloride 110, CO2 20, BUN 26, creatinine 2.7, glucose 90 . ASSESSMENT: 1. Hypertensive crisis - from the patient not taking his usual blood pressure medication. 2. Volume depletion, which is better. 3. Chronic kidney disease. 4. Substance abuse. PLAN: The patient will be transferred to the floor. He can probably go home. He is homeless. He w ill need social work to address the possibility of getting him some medications prior to discharge. Pulmonary will sign off the case. Please recall if further assistance needed.
--- NOTE | 2017-10-23 12:45 | PDOC.PN ---
- Subjective Encounter Start Date: 10/23/17 Encounter Start Time: 12:43 Subjective: feels much better -: good urine output since yesterday -: no CP/SWANSON/SOB - Objective MAR Reviewed: Yes Vital Signs & Weight: Vital Signs (12 hours) Temp Pulse Resp BP Pulse Ox 10/23/17 09:00 143/81 H 10/23/17 08:59 93 143/81 H 10/23/17 08:58 90 143/81 H 10/23/17 08:50 143/81 H 10/23/17 08:00 98.6 F 93 12 98 10/23/17 04:00 98.3 F Weight Weight 159 lb 6.307 oz Most Recent Monitor Data Heart Rate from ECG 92 NIBP 137/75 NIBP BP-Mean 104 Respiration from ECG 18 SpO2 98 I&O: 10/22/17 10/23/17 10/24/17 06:59 06:59 06:59 Intake Total 667 4084.1 480 Output Total 4400 Balance 667 -315.9 480 Result Diagrams: 10/22/17 03:18 10/23/17 04:33 Phys Exam - Physical Examination Constitutional: NAD HEENT: PERRLA, moist MMs, sclera anicteric, oral pharynx no lesions Neck: no nodes, no JVD, supple, full ROM Respiratory: no wheezing, no rales, no rhonchi, clear to auscultation bilateral Cardiovascular: RRR, no significant murmur, no rub, gallop Gastrointestinal: soft, non-tender, no distention, positive bowel sounds Musculoskeletal: no edema, pulses present Neurological: non-focal, normal sensation, moves all 4 limbs Psychiatric: normal affect, A&O x 3 Skin: no rash Dx/Plan (1) Hypertensive emergency Code(s): I16.1 - HYPERTENSIVE EMERGENCY Status: Acute Comment: Better controlled. Off of Cardene (2) Pyhkk-ap-shqllky renal failure Code(s): N17.9 - ACUTE KIDNEY FAILURE, UNSPECIFIED; N18.9 - CHRONIC KIDNEY DISEASE, UNSPECIFIED Status: Acute Comment: .Stable.Renal consulted. (3) Dehydration Code(s): E86.0 - DEHYDRATION Status: Acute (4) Hepatitis C Code(s): B19.20 - UNSPECIFIED VIRAL HEPATITIS C WITHOUT HEPATIC COMA Status: Chronic (5) Tobacco abuse Code(s): Z72.0 - TOBACCO USE Status: Acute (6) Amphetamine abuse Code(s): F15.10 - OTHER STIMULANT ABUSE, UNCOMPLICATED Status: Chronic - Plan out of bed/ambulate, DVT proph w/SCDs BP stable and better. cont meds as below -: Pt extensively counselled for med compliance and drug/tobacco abstinence -: Will consult CM for med assistance -: encouraged for PCP set up -: [facility] in am if BP controlled.renal Fx stable-brent hypertensive CKD * . Review of Systems - Review of Systems Constitutional: negative: fever, chills, sweats, weakness, malaise, other Respiratory: negative: Cough, Dry, Shortness of Breath, Hemoptysis, SOB with Excertion, Pleuritic Pain, Sputum, Wheezing Cardiovascular: negative: chest pain, palpitations, orthopnea, paroxysmal nocturnal dyspnea, edema, light headedness, other Gastrointestinal: negative: Nausea, Vomiting, Abdominal Pain, Diarrhea, Constipation, Melena, Hematochezia, Other Genitourinary: negative: Dysuria, Frequency, Incontinence, Hematuria, Retention , Other Musculoskeletal: negative: Neck Pain, Shoulder Pain, Arm Pain, Back Pain, Hand Pain, Leg Pain, Foot Pain, Other Neurological: negative: Weakness, Numbness, Incoordination, Change in Speech, Confusion, Seizures, Other - Medications/Allergies Allergies/Adverse Reactions: Allergies Allergy/AdvReac Type Severity Reaction Status Date / Time No Known Allergies Allergy Verified 10/22/17 00:02 Medications: Current Medications Acetaminophen (Tylenol) 650 mg PO Q4H PRN PRN Reason: Headache/Fever or Pain Last Admin: 10/22/17 21:15 Dose: 650 mg Hydrocodone Bitart/Acetaminophen ([place] 5/325) 1 tab PO Q4H PRN PRN Reason: Moderate Pain (4-6) Last Admin: 10/22/17 04:04 Dose: 1 tab Al Hydroxide/Mg Hydroxide (Maalox) 30 ml PO Q6H PRN PRN Reason: Heartburn or Indigestion Benzonatate (Tessalon) 100 mg PO Q4H PRN PRN Reason: Cough Bisacodyl (Dulcolax) 10 mg PO DAILYPRN PRN PRN Reason: Constipation Calcium Carbonate (Tums) 1,000 mg PO Q4H PRN PRN Reason: Heartburn or Indigestion Clonidine (Catapres) 0.1 mg PO Q4H PRN PRN Reason: Systolic BP > 160 Last Admin: 10/22/17 04:04 Dose: 0.1 mg Clonidine (Catapres) 0.1 mg PO BID [facility] Last Admin: 10/23/17 08:50 Dose: 0.1 mg Famotidine (Pepcid) 20 mg PO QPM [facility] Last Admin: 10/22/17 20:49 Dose: 20 mg Guaifenesin (Robitussin Sf) 200 mg PO Q4H PRN PRN Reason: Cough Heparin Sodium (Porcine) (Heparin) 5,000 units SC BID [facility] Last Admin: 10/23/17 09:00 Dose: 5,000 units Hydralazine HCl (Apresoline) 10 mg SLOW IVP Q4H PRN PRN Reason: Systolic BP > 180 Hydralazine HCl (Apresoline) 100 mg PO TID [facility] Last Admin: 10/23/17 08:59 Dose: 100 mg Lisinopril (Zestril) 20 mg PO BID [facility] Last Admin: 10/23/17 09:00 Dose: 20 mg Lorazepam (Ativan) 1 mg PO Q4H PRN PRN Reason: Anxiety/Agitation Last Admin: 10/22/17 21:15 Dose: 1 mg Nifedipine (Procardia Xl) 60 mg PO DAILY [facility] Last Admin: 10/23/17 08:58 Dose: 60 mg Nitroglycerin (Nitrostat) 0.4 mg SL Q5MIN PRN PRN Reason: Chest Pain Ondansetron HCl (Zofran) 4 mg IVP Q6H PRN PRN Reason: Nausea/Vomiting Senna (Senokot) 2 tab PO HSPRN PRN PRN Reason: Constipation Sodium Chloride (Flush - Normal Saline) 10 ml IVF Q12HR [facility] Last Admin: 10/23/17 10:48 Dose: 10 ml Sodium Chloride (Flush - Normal Saline) 10 ml IVF PRN PRN PRN Reason: Saline Flush Tramadol HCl (Ultram) 50 mg PO Q4H PRN PRN Reason: Moderate Pain (4-6)
--- NOTE | 2017-10-23 13:25 | PRG ---
DATE OF SERVICE: 10/23/2017 SUBJECTIVE: This is a 46-year-old gentleman, who I have been seeing for acute kidney injury. The pa irene denies any nausea, vomiting, or chest pain. OBJECTIVE: See above. GENERAL: Patient is awake, alert. VITAL SIGNS: Afebrile, pulse 92, breathing at 16, blood pressure is 137/75. GENERAL APPEARANCE AND MENTAL STATUS: Fair. HEAD/NECK: Normocephalic. Atraumatic. EYES: EOMI. No deformity. EARS: Clear. No ulcers. NOSE: Intact. No lesions. MOUTH: Clear. No discharge. THROAT: Clear. No exudate. LUNGS: Clear. No crackles. CARDIAC: S1, S2. No rub. ABDOMEN: Benign. BS+. GENITALIA/RECTUM: Anton absent. BACK/EXTREMITIES: Edema 0+, ulcer. NEUROLOGICAL: Alert and motor intact. SKIN: Rash - bruise. LYMPHATICS: Edema - ulcer. LABORATORY DATA: Labs show creatinine 2.6, potassium 4.3. ASSESSMENT AND RECOMMENDATIONS: 1. Acute kidney injury with chronic kidney disease, most likely because of avascular tubular necrosi s as well as hypertensive nephrosclerosis. 2. Medication based on GFR, consider changing JODIE if the creatinine rises. 2. Left kidney noted to have a lesion. I would order CT. 3. Hypertension, stable. 4. Medications based on glomerular filtration rate are appropriate.
--- NOTE | 2017-10-23 14:01 | CT ---
ABDOMEN AND PELVIC CT SCAN WITHOUT IV COTNRAST: HISTORY: A 46-year-old male with a history of renal lesion, renal insufficiency. COMPARISON: Renal ultrasound 10/22/17. FINDINGS: There is a somewhat elongated pleural-based somewhat nodular density in the lingula having more of th e appearance of a scar, although this could represent a somewhat elongated nodule. Minimal increased interstitial linear changes in the posterior bases, possibly positional. The gallbladder is noted t o be small and contracted with a somewhat thickened gallbladder wall, but no pericholecystic fat stra nding. The pancreas, spleen, and adrenal glands appear unremarkable. No renal calculi or evidence f or acute obstruction. There is an approximately 1 cm diameter cyst involving the lateral cortex o f the mid left kidney. Area of concern on the prior ultrasound examination in the upper pole of the left kidney does not appear to represent a significant mass. No hydronephrosis. Normal-appearing ap pendix. No bowel obstruction, abscess, or abnormal fluid collection. Borderline bladder wall thicke micah. IMPRESSION: Small left renal cyst. Area of concern on prior ultrasound examination does not appear to represent a significant mass based on this CT. Somewhat elongated pleural-based nodule in the lingula, nonspec ific. Given its small size, no specific recommendations for followup are needed since it is less rowan n 0.6 cm and pleural-based. Small contracted gallbladder with a somewhat thickened gallbladder wall which may just be physiologic. No ductal dilatation. Normal-appearing appendix. Borderline urinary bladder wall thickening, nonspecific. POS: [facility]
[2017-10-23] MEDS: Famotidine 20 MG TAB PO SCH (20:30)
[2017-10-24 04:02] VITALS: TEMP 98.1
[2017-10-24] MEDS: NIFEdipine XL 60 MG TAB PO SCH (07:43)
[2017-10-24] MEDS: hydrALAZINE 25 MG TAB PO SCH (07:43)
[2017-10-24] MEDS: Lisinopril 20 MG TAB PO SCH (07:43)
[2017-10-24] MEDS: cloNIDine 0.1 MG TAB PO SCH (07:43)
[2017-10-24 07:44] VITALS: BP 159/99
[2017-10-24] MEDS: Heparin 5,000 UNITS/ML VIAL SC SCH (07:44)
[2017-10-24 09:42] LABS: Anion Gap 13 mmol/L (10-20); BUN (Urea Nitrogen) 34 mg/dL (8.9-20.6); Calc. Creatinine Clearance 36 mL/min (70-130); Calcium 9.4 mg/dL (7.8-10.44); Carbon Dioxide 21 mmol/L (22-29); Chloride 106 mmol/L (98-107); Estimated GFR-MDRD 26; Glucose 112 mg/dL (70-105); Potassium 4.9 mmol/L (3.5-5.1); Sodium 135 mmol/L (136-145)
--- NOTE | 2017-10-24 11:42 | PRG ---
DATE OF SERVICE: 10/24/2017 SUBJECTIVE: A 46-year-old male. The patient denies any nausea, vomiting, or chest pain. PHYSICAL EXAMINATION: GENERAL: Patient is awake, alert. VITAL SIGNS: Afebrile, pulse 90, breathing 16, blood pressure 159/90. OBJECTIVE: See above. Awake, alert, in no acute distress. GENERAL APPEARANCE AND MENTAL STATUS: Fair. HEAD/NECK: Normocephalic. Atraumatic. EYES: EOMI. No deformity. EARS: Clear. No ulcers. NOSE: Intact. No lesions. MOUTH: Clear. No discharge. THROAT: Clear. No exudate. LUNGS: Clear. No crackles. CARDIAC: S1, S2. No rub. ABDOMEN: Benign. BS+. GENITALIA/RECTUM: Anton absent. BACK/EXTREMITIES: Edema 0+ Ulcer- NEUROLOGICAL: Alert and motor intact. SKIN: Rash- Bruise- LYMPHATICS: Edema- Ulcer- LABORATORY: Hemoglobin 13.3, creatinine 2.7. ASSESSMENT AND RECOMMENDATIONS: 1. Acute kidney injury with chronic kidney disease stage 4, stable. 2. Hypertension, stable. 3. Anemia, stable. 4. Metabolic acidosis, stable. No indication for dialysis.
--- NOTE | 2017-10-25 00:37 | DIS ---
DATE OF ADMISSION: 10/21/2017 DATE OF DISCHARGE: 10/24/2017 CONDITION AT THE TIME OF DISCHARGE: Stable and improved. DISCHARGE DIAGNOSES: 1. Hypertensive emergency and urgency. 2. Acute on chronic kidney disease. 3. Methamphetamine abuse. 4. Cocaine abuse. 5. Hyponatremia. 6. Metabolic acidosis due to acute kidney injury. DISCHARGE MEDICATIONS: Hydralazine 100 mg p.o. 5, clonidine 0.1 mg p.o. b.i.d., nifedipine XL 60 mg daily, and lisinopril 20 mg p.o. b.i.d. CONSULTATIONS INHOUSE: 1. Nephrology, Dr. Sidhu. 2. Critical Care Medicine, Dr. Lorenzo and the patient was in the IMCU for hypertensive urgency. PROCEDURES DONE IN THE HOSPITAL: 1. Renal ultrasound which has no hydronephrosis or stones. There was question of a 2 cm nodular den sity in the left kidney. 2. CT scan of the abdomen and pelvis is unremarkable. Small left renal cyst was seen. HISTORY OF PRESENTING ILLNESS: Mr. Chun is a 46-year-old male with past medical history of drug abu se and hypertension, hepatitis C, chronic kidney disease stage 3 and severe left ventricular hypertro phy, likely hypertensive cardiomyopathy, who presented to the emergency room with complaints of heada mable and high blood pressure. His blood pressure was over 200s/140s on presentation. He was initiall y admitted to telemetry unit, but later for uncontrolled hypertension, he was transferred to the [facility] care unit needing IV drip of antihypertensives. Please see admission history and physical for f urther details. HOSPITAL COURSE: Various medications were tried eventually and the oral medications helped to lower the blood pressure and IV medications were tapered off. He was briefly seen by Dr. Lorenzo while he was in the critical care unit. He was found to have acute on chronic kidney insufficiency and Nephro logy was consulted. An ultrasound was done which was concerning for some left upper lobe, left kidne y nodule which was confirmed to be a left kidney cyst on CT scan. His renal function improved. He h as definitive evidence of chronic kidney disease which is likely hypertensive. He also has evidence of hypertensive heart disease and cardiomyopathy in the form of LVH. I had multiple discussions with him during his hospitalization and encouraged him to continue to take his medications. All the prescriptions were provided and he was helped by [facility] in procuring all the medications. Extensive drug, alcohol and tobacco abstinence counseling was provided to the patient. He was referred to [facility] and was encouraged highly to follow up w ith them on a daily basis. He was seen and examined prior to discharge. He is feeling much better. All of his questions answer ed. PHYSICAL EXAMINATION: VITAL SIGNS: His blood pressure is 159/99, saturating 96% on room air, afebrile, heart rate 69. GENERAL: No acute distress. CHEST: Clear to auscultation bilaterally. Rate and rhythm is regular. He will be discharged and he is given referral to [facility] for followup.
== END 2017-10-24 15:42 | disposition home or self-care (01) | DRG 305 ==
LOC: ERS 16:54 → CCU 23:19 → ONC 10-23 11:45
PROVIDERS: ADMIT Internal Medicine; ATTEND Internal Medicine
DX: I16.0 Hypertensive urgency (principal); I43 Cardiomyopathy in diseases classified elsewhere; N17.9 Acute kidney failure, unspecified; E87.1 Hypo-osmolality and hyponatremia; E87.2 Acidosis; I16.1 Hypertensive emergency; N18.3 Chronic kidney disease, stage 3 (moderate); I11.9 Hypertensive heart disease without heart failure; Z91.14 Patient's other noncompliance with medication regimen; F17.210 Nicotine dependence, cigarettes, uncomplicated; E86.0 Dehydration; B18.2 Chronic viral hepatitis C; F15.10 Other stimulant abuse, uncomplicated; F14.10 Cocaine abuse, uncomplicated; N28.1 Cyst of kidney, acquired; I13.10 Hypertensive heart and chronic kidney disease without heart failure, with stage 1 through stage 4 chronic kidney disease, or unspecified chronic kidney disease; Z59.0 Homelessness; I25.2 Old myocardial infarction
CPT/HCPCS: 36415; 71045; 74176; 76770; 80048; 80053; 80306; 82553; 83690; 83880; 84484; 85025; 93005; 94760; A4216; J0360; J1644; J1650; J7050

== ENCOUNTER 2018-07-12 02:07 | Inpatient (IN) | payer SELFPAY ==
[2018-07-12] MEDS ORDERED: Lidocaine 1% w/Epinephrine 1:100K 20 ML VIAL ONE (02:17)
[2018-07-12] MEDS ORDERED: Oxymetazoline HCl 0.05% (30 ML BOT) ONE (02:17)
[2018-07-12] MEDS ORDERED: Lorazepam 2 MG/ML VIAL ONE ×2 (02:37→10:07)
[2018-07-12 03:20] LABS: Cocaine Metabolite Screen Not Detected (NotDetected); Medtox Reader # READER 4; Methamphetamine Detected (NotDetected); Opiate Screen Not Detected (NotDetected); Phencyclidine (PCP) Not Detected (NotDetected); THC/Cannabinoid Screen Detected (NotDetected)
[2018-07-12 03:21] LABS: Amphetamine Detected (NotDetected); Barbiturates Screen Not Detected (NotDetected); Benzodiazepine Screen Not Detected (NotDetected); Medtox Control Line Valid? VALID (VALID); Methadone Not Detected (NotDetected); Oxycodone Screen Not Detected (NotDetected); Tricyclic Screen Not Detected (NotDetected)
[2018-07-12 03:26] LABS: #Basophils 0.2 thou/uL (0.0-0.2); #Eosinphils 0.3 thou/uL (0.0-0.7); #Lymphocytes 1.8 thou/uL (1.20-3.40); #Monocytes 0.5 thou/uL (0.11-0.59); %Basophils 1.5 % (0.0-1.0); %Eosinophils 2.1 % (0.0-10.0); %Lymphocytes 15.5 % (21.0-51.0); %Monocytes 4.3 % (0.0-10.0); %Neutrophils 76.5 % (42.0-75.0); Hemoglobin 11.9 g/dL (14.0-18.0); Mean Corpuscular HGB CONC 33.5 g/dL (32.0-36.0); Mean Corpuscular Hemoglobin 31.6 pg (27.0-31.0); Mean Corpuscular Volume 94.4 fL (78.0-98.0); Mean Platelet Volume 9.2 fL (7.4-10.4); Platelet Count 178 thou/uL (130-400); RBC Distribution Width 12.5 % (11.5-14.5); Red Blood Cell (RBC) Count 3.78 mill/uL (4.70-6.10); White Blood Cell (WBC) Count 11.8 thou/uL (4.8-10.8)
[2018-07-12 03:48] LABS: ALT (SGPT) 76 U/L (8-55); AST (SGOT) 49 U/L (5-34); Albumin 4.1 g/dL (3.5-5.0); Alkaline Phosphatase 87 U/L (40-150); Anion Gap 18 mmol/L (10-20); BUN (Urea Nitrogen) 81 mg/dL (8.9-20.6); Calc. Creatinine Clearance 0 mL/min (70-130); Carbon Dioxide 15 mmol/L (22-29); Chloride 110 mmol/L (98-107); Estimated GFR-MDRD 23; Globulin 2.7 g/dL (2.4-3.5); Glucose 137 mg/dL (70-105); INR-International Normal Ratio 1.1; PTT 26.5 SEC (22.9-36.1); Potassium 4.3 mmol/L (3.5-5.1); Protein, Total 6.8 g/dL (6.0-8.3); Prothrombin Time 14.2 SEC (12.0-14.7); Sodium 139 mmol/L (136-145)
[2018-07-12 03:54] LABS: Acetaminophen Less than 6.0 mcg/mL (10.0-30.0); Alcohol Less than 10 mg/dL (Less than 10); Salicylate Less than 8.0 mg/dL (15.0-30.0)
[2018-07-12 04:17] LABS: CKMB 5.5 ng/mL (0-6.6)
[2018-07-12] MEDS ORDERED: Aspirin 325 MG TAB ONE (05:03)
[2018-07-12 07:01] LABS: Troponin I 0.156 ng/mL (< 0.028)
[2018-07-12] MEDS ORDERED: Acetaminophen 325 MG TAB PO PRN (07:11)
[2018-07-12] MEDS ORDERED: Ondansetron PF 4 MG/2 ML Vial IVP PRN (07:11)
[2018-07-12] MEDS ORDERED: Ondansetron ODT 4 MG TAB PO PRN (07:11)
[2018-07-12 07:43] VITALS: BMI 23.7
[2018-07-12 09:11] LABS: Hemoglobin 10.7 g/dL (14.0-18.0)
[2018-07-12 09:32] LABS: Troponin I 0.215 ng/mL (< 0.028)
[2018-07-12] MEDS: Lorazepam 2 MG/ML VIAL SLOW IVP PRN ×2 (10:08→11:03)
[2018-07-12] MEDS ORDERED: Diazepam 10 MG/2 ML SYRINGE IVP SCH (10:15)
[2018-07-12] MEDS ORDERED: Lorazepam 2 MG/ML VIAL SLOW IVP PRN ×3 (14:09→14:11)
--- NOTE | 2018-07-12 15:27 | CON ---
DATE OF CONSULTATION: 07/12/2018 This is 40 minutes of critical care time. HISTORY OF PRESENT ILLNESS: The patient is a 47-year-old male, who apparently was transported to [place] via EMS yesterday with nose bleeding and hypertension. He initially went AMA, but then came back and was transported over here. He had some nasal tampons placed for nasal bleeding. He pulled those out earlier with significant clots. He is extremely agitated, will not follow commands. He is having to be heavily sedated. His blood pressure is out of control. Therefore, he is being moved to the CCU. PAST MEDICAL HISTORY: 1. Methamphetamine abuse. 2. Chronic hepatitis C. 3. Hypertension. 4. Non-ST segment elevation myocardial infarction. 5. Chronic kidney disease. 6. Left ventricular hypertrophy with diastolic dysfunction. PAST SURGICAL HISTORY: None. SOCIAL HISTORY: Smokes one pack per day in the past. He drinks alcohol occasionally. He uses methamphetamine. FAMILY MEDICAL HISTORY: Unremarkable. ALLERGIES: NONE. MEDICATIONS: Prior to admission, not known at this time. REVIEW OF SYSTEMS: Cannot be obtained secondary to the patient's agitation. PHYSICAL EXAMINATION: VITAL SIGNS: Heart rate 110, blood pressure 216/149, respiratory rate 26, O2 saturation 97%. GENERAL: The patient is acutely agitated. HEENT: Pupils are reactive. Sclerae anicteric. Oropharynx is clear. Nares have some old bleeding present. NECK: No JVD. LUNGS: Clear to auscultation. CARDIAC: S1 and S2. Regular. ABDOMEN: Soft, nontender. EXTREMITIES: No edema. He has multiple tattoos noted throughout his arms. IMAGING STUDIES: CT of the chest showed areas of decreased attenuation in the basal ganglia, thalamus, brainstem and cerebral hemispheres, suggestive of possible infarction. Chest x-ray demonstrates normal heart size, normal lung parson. LABORATORY DATA: Sodium 139, potassium 4.3, chloride 110, CO2 of 15, BUN 81, creatinine 2.9, glucose 137, AST 49, ALT 76. Troponin 0.215. White blood cell count 11.9, hematocrit 31.3, and platelet count 178. Tox screen positive for amphetamines, methamphetamines, and cannabinoids. ASSESSMENT: 1. Methamphetamine abuse/intoxication. 2. Dianelys. 3. Hypertension out of control-probably aggravated by methamphetamine. 4. Acute delirium. PLAN: 1. The patient will be placed in the CCU. He will be placed on a Precedex drip. He will be given Ativan for breakthrough needs. He will be placed on nicardipine with a goal blood pressure between 140 and 160 systolic. 2. Start IV thiamine. 3. We will follow. Job ID: [id number]
--- NOTE | 2018-07-12 16:18 | HP ---
CHIEF COMPLAINT: Epistaxis. HISTORY OF PRESENT ILLNESS: This patient is a 47-year-old male with a history of severe hypertension, chronic kidney disease, drug abuse, and medication noncompliance. The patient has been admitted to this facility several times in the past with severe hypertension and chest pain. The patient was apparently in his usual state of health. He was off all of his antihypertensives with the exception of carvedilol. His close friend/self-described girlfriend reports that she was unaware of his understanding of their relationship and she had some other man come around, which set the patient off and he responded by shooting methamphetamine. Subsequently, he awakened her at 4 o'clock in the morning yesterday seeking some help with epistaxis. The patient could not get control or make it stop and ultimately presented to the emergency department in [place]. There, the patient had packing placed. He was given Ativan, IV Cardene, aspirin, and some IV fluids. The patient subsequently left that facility against medical advice rather than being transferred here. His girlfriend says she went and picked up three days worth of some of his other antihypertensives and gave him some of those medications at that time. They went home and she was ultimately able to convince him to come here. He apparently pulled out one of the nasal packings and "sneezed out" the other one. She reports that his mental status and overall alertness have declined since he has been here. She also reports that three days ago she and other people that knew him had noted that he was having some changes with his mental status. They thought he was responding slower and having some slurring. Currently, the patient is unable to give any additional history. When the patient presented to the facility here, he had blood pressure of 123/88. He was given additional Ativan and additional aspirin. CT scan from [place] was reviewed that showed multiple acute infarctions of the basal ganglia, thalamus, cerebellum, and brainstem. REVIEW OF SYSTEMS: Not obtainable given the patient's mental status. PAST MEDICAL HISTORY: Based on prior admissions, the patient has uncontrolled hypertension, hepatitis C, drug abuse, history of MIs, chronic kidney disease stage 3, and severe left ventricular hypertrophy, although the most recent echocardiogram I can find is from 2017 and it shows LVH, but not what would be considered severe. He has a history of medication noncompliance. PAST SURGICAL HISTORY: None. SOCIAL HISTORY: The patient smokes a pack of cigarettes per day and uses methamphetamine. FAMILY HISTORY: No family history of premature coronary artery disease or stroke. CURRENT MEDICATIONS: The patient has only been taking carvedilol 25 b.i.d. He is supposed to be on, 1. Procardia XL 60 mg daily. 2. Zestril 20 mg b.i.d. 3. Hydralazine 100 mg t.i.d. 4. Clonidine 0.1 b.i.d., but has not been taking these medications. ALLERGIES: NONE KNOWN. PHYSICAL EXAMINATION: VITAL SIGNS: Temperature 97.6, pulse 87, respirations 20, O2 saturations 97% on room air, and BP is 168/121 and previous 186/112. GENERAL APPEARANCE: Age-appropriate male. He is asleep. He is responding to sternal rub, will mumble a little bit and then goes back out, but otherwise not fully coming awake or cooperating. HEENT: His pupils are round and equal, sluggish but reactive. There is dried blood within the nose, but no current active bleeding. He has no OP lesions. HEART: Regular rate and rhythm without murmurs, gallops, or rubs. LUNGS: Clear bilaterally with no wheeze or rales. ABDOMEN: Soft and nondistended. Positive bowel sounds. He does appear to have some tenderness to palpation in the epigastrium. EXTREMITIES: Warm and dry. No cyanosis, clubbing, or edema. NEUROLOGIC: As above. The patient appears to be a bit encephalopathic. LABORATORY DATA: White count 11.8, hemoglobin 11.9, and platelets 178. Coags are normal. Chemistries; sodium is 139, potassium 4.3, chloride 110, CO2 is 15, BUN 81, creatinine 2.94, GFR is 23, glucose 137, AST is 49, and ALT is 76. Troponin initially was 0.074, subsequent 0.156 and 0.215. Urine drug screen positive for amphetamine, methamphetamine, and cannabis. Plasma alcohol level is less than 10. CT scan of the brain, findings suspicious for extensive acute infarctions of the basal ganglia, thalami, brainstem, and cerebellar hemispheres. Chest x-ray is negative. EKG shows some LVH and nonspecific ST and T-wave changes. IMPRESSION AND PLAN: 1. Epistaxis, likely hypertensive related, had a nasal packing that has subsequently been removed by the patient. He does not appear to have active bleeding at this time. We will continue to monitor. We will call ENT only if he rebleeds. 2. Acute cerebrovascular accident with multiple areas of distribution. Per recommendations of radiology, we will go ahead and obtain an MRI to confirm these findings and ensure there is no evidence of bleeding. The patient has received aspirin. We will await the results of the MRI before being more aggressive with any aspirin. 3. Encephalopathy. It could be multifactorial from acute cerebrovascular accidents to hypertensive encephalopathy to drug related. 4. Acute on chronic kidney disease. The patient appears to be fairly close to his baseline renal function, only slightly lower, which make him a stage 3 chronic kidney disease. 5. Elevated liver enzymes, likely due to the hepatitis C. 6. Elevated troponins. The patient may have type 2 [id number]-BR-[id number] myocardial infarction secondary to hypertensive urgency. We will consult Cardiology. 7. Hypertensive urgency. The patient's blood pressure was substantially elevated initially in [place]. He did receive some IV Cardene there. His numbers were better on arrival, but are going back up. Discussed with Pulmonary/Critical Care, Dr. Lorenzo. We will go ahead and moved to the ICU for a Cardene drip and more aggressive management of blood pressure. 8. Drug abuse. The patient is using IV methamphetamine and also tested positive for cannabis. 9. History of chronic hepatitis C, stable. Job ID: [id number]
[2018-07-12] MEDS: Sodium Chloride 0.9% 1,000 ML IV SCH (17:25)
--- NOTE | 2018-07-12 19:22 | CON ---
DATE OF CONSULTATION: 07/12/2018 REASON FOR CONSULTATION: Positive troponins, hypertensive emergency. HISTORY OF PRESENT ILLNESS: Mr. Chun is a 47-year-old white gentleman, whom I saw in the past. He has a history of substance abuse with methamphetamines and alcohol. He comes in for epistaxis. He woke up at 04:00 a.m. and asked his girlfriend for help as he was having a lot of nose bleeding, could not make it stop, so they decided to come into the [facility]. He was packed and asked to transfer over. He decided to leave [facility] as he was offered to be transferred here. They went home and he was convinced eventually to come back as he sneezed out the nasal packing and continued to bleed again. Since he was admitted, his mental status declined and he was very agitated. Last time, he was in the hospital for the same issue and I evaluated him. He had PRES, which is a posterior reversible encephalopathy syndrome. At that time, he had seizures, headache, confusion, visual loss, which all improved eventually. This was all related to malignant hypertension as well. This time around, he was evaluated and found to have multiple strokes on MRI as well as epistaxis and positive troponins. On my evaluation, Mr. Chun has been sedated as he is very agitated and would not stay still in the room. PAST MEDICAL HISTORY: 1. Difficult to control blood pressure. 2. Noncompliance. 3. Hepatitis C. 4. Drug abuse. 5. Chronic kidney disease stage 3. 6. LVH. 7. Hypertensive cardiomyopathy. PAST SURGICAL HISTORY: None. SOCIAL HISTORY: Smokes a pack of cigarettes a day. Uses methamphetamines and alcohol in the past. Used to drink about 2 to 6 packs every day. FAMILY HISTORY: Noncontributory. OUTPATIENT MEDICATIONS: Carvedilol 25 mg b.i.d., which is the only thing he was taking. He should be on Procardia, lisinopril 20 b.i.d., hydralazine 100 t.i.d., and clonidine 0.1 b.i.d. ALLERGIES: NO KNOWN DRUG ALLERGIES. REVIEW OF SYSTEMS: Unobtainable as the patient currently is sedated. PHYSICAL EXAMINATION: VITAL SIGNS: Heart rate 87, blood pressure 108/82, saturating 97% on room air, temperature 98.0. GENERAL: Sedated. HEENT: Normocephalic, atraumatic. NECK: Supple. LUNGS: Clear. CARDIOVASCULAR: S1 and S2. No S3 or S4. ABDOMEN: Soft. EXTREMITIES: No edema. SKIN: Warm and dry. LABORATORY DATA: Laboratory work was reviewed. CBC with a white count of 11, hemoglobin 11, hematocrit 35, platelet count of 178. Coags were unremarkable. Chemistry showed a chloride of 110, carbon dioxide of 15, anion gap of 18, BUN of 81, creatinine of 2.94, GFR of 23, AST and ALT are high. Troponins are 0.07, 0.15, and 0.21. CK-MB of 5.5, albumin of 4.1. Toxicology was positive for methamphetamines, cannabis. Plasma alcohol was undetectable. ASSESSMENT: 1. Hypertensive emergency. 2. Strokes related to hypertensive encephalopathy most likely. 3. Dianelys. 4. Methamphetamine abuse and intoxication. 5. Acute delirium. PLAN: 1. Blood pressure is much better controlled on current regimen. Continue for now. 2. I agree with Precedex drip to control his dianelys. 3. We will try to keep the blood pressure between 140s and 160s. We will have him back off on his nicardipine drip. 4. Very poor long-term prognosis in him because of secondary drug use and noncompliance. 5. We will follow. Job ID: [id number]
[2018-07-12] MEDS: Famotidine/PF 20 mg/2ml Vial SLOW IVP SCH (21:22)
--- NOTE | 2018-07-12 21:59 | CON ---
DATE OF CONSULTATION: 07/12/2018 REASON FOR CONSULT: Acute kidney injury. REASON FOR ADMISSION: Nose bleed and hypertension. HISTORY OF PRESENT ILLNESS: A 47-year-old male with history of substance abuse, hypertension, CKD, came to the hospital with above complaints and was found to have elevated creatinine. His baseline creatinine is around 2.6 to 2.7, was found at 2.9. Nephrology was consulted. The patient has polysubstance abuse history. He is sedated currently. No nausea or vomiting. No chest pain or palpitation. PAST MEDICAL HISTORY: 1. Positive for polysubstance abuse. 2. Chronic hepatitis C, hypertension, coronary artery disease, LVH. PAST SURGICAL HISTORY: None. HOME MEDICATIONS: 1. Procardia. 2. Zestril. 3. Carvedilol. ALLERGIES: NO KNOWN DRUG ALLERGIES. SOCIAL HISTORY: Smokes and multiple substance abuse, and positive in the urine test. Drinks alcohol. FAMILY HISTORY: No history of kidney disease. REVIEW OF SYSTEMS: Could not be obtained at this point. PHYSICAL EXAMINATION: GENERAL: Reveals a thin built male, in no apparent distress. VITAL SIGNS: Temperature 98.7, pulse , blood pressure 118/83. HEENT: Atraumatic, normocephalic. NECK: Supple. CVS: S1, S2 heard. Rate and rhythm regular. RESPIRATORY: Clear. GASTROINTESTINAL: Abdomen is soft. MUSCULOSKELETAL: 1+ edema. DERMATOLOGIC: No skin rash. NEUROLOGIC: Sedated now. LABORATORY DATA: Hemoglobin is 10.7. Potassium 4.3, BUN is 81, creatinine is 2.9. ASSESSMENT AND PLAN: 1. Chronic kidney disease, stage 4, renal function is stable. 2. Hypertension. Agree with titrating medications. 3. Metabolic acidosis, most likely from renal failure. 4. Azotemia. 5. Anemia of chronic disease. 6. Polysubstance abuse - The patient will be counseled regarding the adverse renal effects of substance abuse. 7. Long-term prognosis, guarded. No acute indication for dialysis. I will continue to follow. Thank you for the consult. Job ID: [id number] MTDD
[2018-07-13 04:42] LABS: #Basophils 0.1 thou/uL (0.0-0.2); #Eosinphils 0.1 thou/uL (0.0-0.7); #Lymphocytes 1.8 thou/uL (1.20-3.40); #Monocytes 0.6 thou/uL (0.11-0.59); #Neutrophils 8.6 thou/uL (1.40-6.50); %Basophils 0.9 % (0.0-1.0); %Eosinophils 0.8 % (0.0-10.0); %Lymphocytes 16.3 % (21.0-51.0); %Monocytes 5.1 % (0.0-10.0); %Neutrophils 76.9 % (42.0-75.0); Hemoglobin 8.8 g/dL (14.0-18.0); Mean Corpuscular HGB CONC 34.2 g/dL (32.0-36.0); Mean Corpuscular Hemoglobin 32.4 pg (27.0-31.0); Mean Corpuscular Volume 94.8 fL (78.0-98.0); Mean Platelet Volume 9.2 fL (7.4-10.4); Platelet Count 137 thou/uL (130-400); RBC Distribution Width 12.7 % (11.5-14.5); Red Blood Cell (RBC) Count 2.71 mill/uL (4.70-6.10); White Blood Cell (WBC) Count 11.2 thou/uL (4.8-10.8)
[2018-07-13 05:05] LABS: Anion Gap 17 mmol/L (10-20); BUN (Urea Nitrogen) 120 mg/dL (8.9-20.6); Calc. Creatinine Clearance 23 mL/min (70-130); Calcium 8.4 mg/dL (7.8-10.44); Carbon Dioxide 12 mmol/L (22-29); Chloride 114 mmol/L (98-107); Estimated GFR-MDRD 14; Glucose 92 mg/dL (70-105); Potassium 4.5 mmol/L (3.5-5.1); Sodium 138 mmol/L (136-145)
[2018-07-13] MEDS: Sodium Chloride 0.9% 1,000 ML IV SCH ×2 (06:07→21:26)
[2018-07-13] MEDS: Sodium Bicarbonate 75 MEQ in Dextrose 5% in Water 1,000 ML IV SCH ×2 (08:35→19:33)
[2018-07-13] MEDS: Carvedilol 25 MG TAB PO SCH ×2 (08:35→21:27)
[2018-07-13] MEDS: NIFEdipine XL 60 MG TAB PO SCH (08:35)
[2018-07-13] MEDS: cloNIDine 0.1 MG TAB PO SCH ×2 (08:35→21:26)
--- NOTE | 2018-07-13 09:38 | PRG ---
DATE OF SERVICE: 07/13/2018 SUBJECTIVE: Mr. Chun is a totally different man. Today, he is off Precedex and a Cardene drip. He is calm, cooperative, and has no complaints. OBJECTIVE: VITAL SIGNS: On exam, temperature is 97.9, pulse 87, blood pressure 138/83, and O2 saturation 98%. A 24-hour intake 1878, output 450. HEENT: Unremarkable. NECK: No JVD. CHEST: Clear. CARDIAC: S1 and S2, regular. ABDOMEN: Soft. EXTREMITIES: No edema. LABORATORY DATA: Sodium of 138, potassium 4.5, chloride 114, CO2 of 12, BUN 120, creatinine 4.5, and glucose 92. White blood cell count 11.2, hematocrit 25.7, and platelet count 137. ASSESSMENT: 1. Methamphetamine toxicity. 2. Encephalopathy, which is improved with mental status back to baseline. 3. Hypertensive emergency. 4. Acute renal failure. PLAN: 1. Move to [facility]. 2. Restart his Procardia and Coreg. Also start the clonidine. I will hold Zestril given his renal insufficiency. 3. Start diet. 4. Change IV fluids to D5W with some bicarbonate and follow serial chemistries. Job ID: [id number]
--- NOTE | 2018-07-13 11:28 | PRG ---
DATE OF SERVICE: 07/13/2018 SUBJECTIVE: Patient was seen and examined at bedside and overnight events noted. Patient denies any shortness of breath or chest pain or palpitation. No history of nausea or vomiting or diarrhea or fever or chills or cramps. OBJECTIVE: GENERAL: This is a well built male, in no apparent distress. VITAL SIGNS: Temperature 97.6. Heart rate 80. Respiratory rate 15. Blood pressure 137/96. HEENT: Atraumatic, normocephalic. Oral mucosa is moist NECK: Supple. CARDIOVASCULAR: S1, S2 heard. Rate and rhythm regular. RESPIRATORY: Clear to auscultation. GASTROINTESTINAL: Abdomen is soft. MUSCULOSKELETAL: No tenderness. No edema. DERMATOLOGIC: No skin rash. NEUROLOGIC: Alert and awake and oriented X3. No focal neurologic deficits. Moving all the extremities. PSYCHIATRIC: Mood and affect normal. LABORATORY DATA: Potassium is 4.5, BUN is 120, and creatinine is 4.5. ASSESSMENT AND PLAN: 1. Acute kidney injury on chronic kidney disease stage 4 with worsening most likely volume depletion. Plan discussed with Dr. Lorenzo. Plan is to start IV fluids. I will repeat labs in the evening. If not better, I might switch it to normal saline. 2. Metabolic acidosis. Agree with bicarb supplement. 3. Hypertension. Getting better. 4. Azotemia. 5. Anemia. 6. Polysubstance abuse. The patient and family were counseled. Long-term prognosis guarded. We will follow. Job ID: [id number]
--- NOTE | 2018-07-13 13:28 | MRI ---
MRI Brain WO Con: 07/13/2018 9:10 AM CLINICAL HISTORY: Altered mental status.. COMPARISON: Recent head CT 07/11/2018 is referenced. FINDINGS: There is extensive abnormal signal alteration, which demonstrates FLAIR and T2 hyperintensity with in volvement of the tre, medulla, imaged upper cervical spinal cord, along with cephalad extension into the bilateral thalami, lentiform nuclei and bilateral cerebral white matter. Subtle involvement also seen within the head of the caudate nuclei, more so on the left. There are interspersed multifocal punctate foci of susceptibility artifact indicating microhemorrhage/hemosiderin. No acute restriction. Ventricular system is appropriate in size. Scattered lacunar infarctions of the bilateral basal gangl ia are present. Incidental note of scattered paranasal sinus mucosal thickening most pronounced within the left maxil amado sinus. Patient motion throughout the exam distorts anatomy and limits evaluation. IMPRESSION: Diffuse abnormal signal alteration with multifocal interspersed punctate susceptibility foci spanning the level of the edmond radiata bilaterally, involving bilateral deep gibson nuclei, extensively, and diffusely infiltrating the brainstem with involvement of the imaged upper cervical spinal cord. Primary differential considerations would include osmotic demyelination syndrome, or alternatively hy pertensive encephalopathy, given the multifocal areas of punctate susceptibility. Recommend clinical correlation in this regard. Follow-up brain MRI utilizing IV contrast would also be beneficial for further assessment, in order t o exclude underlying pathologic enhancement. Findings conveyed to patient's physician Yaakov Tran via telephone. Transcribed Date/Time: 07/13/2018 1:43 PM
[2018-07-13] MEDS: Nicotine 21 MG PATCH TD SCH (13:59)
--- NOTE | 2018-07-13 14:18 | PDOC.PN ---
- Subjective Encounter Start Date: 07/13/18 Encounter Start Time: 13:20 Feeling much better in general. Hungry. Needs a nicotine patch. Told nurse he would go outside and smoke without one. - Objective Resuscitation Status - Order Detail: 07/12/18 09:26 Resuscitation Status Routine Resuscitation Status: FULL: Full Resuscitation Vital Signs & Weight: Vital Signs (12 hours) Temp Pulse BP Pulse Ox 07/13/18 12:25 97 07/13/18 11:50 97.8 F 07/13/18 09:00 97.6 F 07/13/18 08:35 87 127/74 07/13/18 08:00 98 07/13/18 04:00 97.9 F Weight Admit Weight 174 lb 13.225 oz Weight 175 lb Most Recent Monitor Data Heart Rate from ECG 78 NIBP 140/99 NIBP BP-Mean 112 Respiration from ECG 26 SpO2 100 I&O: 07/12/18 07/13/18 07/14/18 06:59 06:59 06:59 Intake Total 1878.9 550 Output Total 450 0 Balance 1428.9 550 Result Diagrams: 07/13/18 04:20 07/13/18 04:21 Phys Exam - Physical Examination Constitutional: NAD Sitting up in chair. Respiratory: no wheezing, no rales, no rhonchi Cardiovascular: RRR, no significant murmur, no rub Gastrointestinal: soft, non-tender, no distention, positive bowel sounds Musculoskeletal: no edema Neurological: moves all 4 limbs Psychiatric: normal affect, A&O x 3 Dx/Plan (1) CKD (chronic kidney disease), stage IV Code(s): N18.4 - CHRONIC KIDNEY DISEASE, STAGE 4 (SEVERE) Status: Acute (2) WILDER (acute kidney injury) Code(s): N17.9 - ACUTE KIDNEY FAILURE, UNSPECIFIED Status: Acute (3) Hypertensive emergency Code(s): I16.1 - HYPERTENSIVE EMERGENCY Status: Acute Comment: Better controlled. Off of Cardene (4) NSTEMI (non-ST elevated myocardial infarction) Code(s): I21.4 - NON-ST ELEVATION (NSTEMI) MYOCARDIAL INFARCTION Status: Acute (5) Tobacco abuse Code(s): Z72.0 - TOBACCO USE Status: Acute (6) Amphetamine abuse Code(s): F15.10 - OTHER STIMULANT ABUSE, UNCOMPLICATED Status: Chronic (7) ETOH abuse Code(s): F10.10 - ALCOHOL ABUSE, UNCOMPLICATED Status: Chronic (8) Hepatitis C Code(s): B19.20 - UNSPECIFIED VIRAL HEPATITIS C WITHOUT HEPATIC COMA Status: Chronic (9) CVA (cerebral vascular accident) Code(s): I63.9 - CEREBRAL INFARCTION, UNSPECIFIED Status: Acute Comment: Multiple areas effected. Secondary to hypertensive encephalopathy/emergency. Not ischemic. (10) Acidosis Code(s): E87.2 - ACIDOSIS Status: Acute - Plan * Meth use resulted in hypertensive emergency and resultant renal injury, brain injury, cardiac injury. * Not an ischemic CVA and ASA not indicated and contraindicated by the patients severe epistaxis at presentation. Also has "microbleeds" on MRI of brain. * Renal function is worse today. At high risk of permanently diminished renal function. Nephrology following. * Continue IVF and bicab. * Cards following from cardiac standpoint. No much to be done now. * Patient counseled regarding the drug use and multi-organ damage it has caused. He understands that he has self-inflicted some major damage on his body and needs to quit.
[2018-07-13 16:40] LABS: Anion Gap 18 mmol/L (10-20); Calc. Creatinine Clearance 20 mL/min (70-130); Calcium 8.6 mg/dL (7.8-10.44); Carbon Dioxide 13 mmol/L (22-29); Chloride 105 mmol/L (98-107); Estimated GFR-MDRD 12; Glucose 181 mg/dL (70-105); Sodium 132 mmol/L (136-145)
[2018-07-13 16:54] LABS: BUN (Urea Nitrogen) 121 mg/dL (8.9-20.6)
--- NOTE | 2018-07-13 17:35 | PDOC.CTH ---
Cardiology Progress Note - Subjective Much better today. Not agitated at all. Back to his normal baseline. Very pleasant today. No chest pain. - Objective Vital Signs Temp Pulse BP Pulse Ox 07/13/18 15:31 97.5 F L 07/13/18 12:25 97 07/13/18 11:50 97.8 F 07/13/18 09:00 97.6 F 07/13/18 08:35 87 127/74 07/13/18 08:00 98 Admit Weight 174 lb 13.225 oz Weight 175 lb 07/12/18 07/13/18 07/14/18 06:59 06:59 06:59 Intake Total 1878.9 550 Output Total 450 0 Balance 1428.9 550 - Physical Examination General/Neuro: alert & oriented x3, NAD Neck: carotid US brisk, no JVD present Lungs: unlabored respirations Heart: RRR Abdomen: NT/ND Extremities: other: (no edema) - Telemetry Telemetry Rhythm: No edema - Labs Result Diagrams: 07/13/18 04:20 07/13/18 15:57 Troponin/CKMB CK-MB (CK-2) 5.5 ng/mL (0-6.6) 07/12/18 03:15 Troponin I 0.215 ng/mL (< 0.028) H 07/12/18 09:01 - Assessment/Plan 1. Hypertensive emergency. 2. Acute CVA, secondary to HTN 3. Acute renal failure. 4. Substance abuse.
--- NOTE | 2018-07-13 17:54 | CON ---
DATE OF CONSULTATION: 07/13/2018 CONSULTING PHYSICIAN: Hospitalist Service. IMPRESSION: Transient appearance of cerebral edema likely secondary to his underlying hypertension. There appears to be no neurologic compromise. PLAN: 1. Blood pressure control. 2. Discontinue illicit drug use. HISTORY OF PRESENT ILLNESS: Mr. Chun is a 47-year-old male with a known history of hypertension and methamphetamine use. He presents to the emergency room with complaints of a nosebleed. CT of the brain was done, which showed suspicious areas of low signal in the basal ganglia and thalamic regions. The patient had no neurologic complaints. His blood pressure has been far under control. He is not complaining of any difficulty with cognition, vision, speech, swallowing, weakness, or numbness. PAST MEDICAL HISTORY: Hypertension. ALLERGIES: NONE REPORTED. SOCIAL HISTORY: Drug use. FAMILY HISTORY: Noncontributory. REVIEW OF SYSTEMS: Ten system review of systems is otherwise negative. PHYSICAL EXAMINATION: GENERAL: He is a well-nourished, middle-aged man, lying in bed, in no distress. VITAL SIGNS: Blood pressure 132/84, pulse 76. HEENT: Pupils are equal and reactive. Conjunctivae are clear. Oropharynx clear. NECK: Supple. EXTREMITIES: No edema. NEUROLOGIC: He is alert and cooperative. His speech is fluent and clear. Cranial nerves are intact. Motor exam showed equal strength. There are no abnormal movements. Sensations intact to touch. He can walk independently. IMAGING DATA: CT images were reviewed. SUMMARY: A gentleman had some abnormal CT findings without neurologic changes to suggest that this was ischemic in origin. It is possible that it could have been a type of PRES syndrome. He appears to be intact at this point. I do not see any further need for workup. Job ID: [id number]
[2018-07-13] MEDS: Famotidine/PF 20 mg/2ml Vial SLOW IVP SCH (21:27)
[2018-07-14 05:00] LABS: Anion Gap 17 mmol/L (10-20); Calc. Creatinine Clearance 18 mL/min (70-130); Calcium 8.4 mg/dL (7.8-10.44); Carbon Dioxide 13 mmol/L (22-29); Chloride 106 mmol/L (98-107); Estimated GFR-MDRD 11; Glucose 138 mg/dL (70-105); Potassium 4.2 mmol/L (3.5-5.1); Sodium 132 mmol/L (136-145)
[2018-07-14 05:03] LABS: #Basophils 0.1 thou/uL (0.0-0.2); #Eosinphils 0.2 thou/uL (0.0-0.7); #Lymphocytes 0.8 thou/uL (1.20-3.40); #Monocytes 0.5 thou/uL (0.11-0.59); %Basophils 0.9 % (0.0-1.0); %Eosinophils 2.8 % (0.0-10.0); %Lymphocytes 12.2 % (21.0-51.0); %Monocytes 7.4 % (0.0-10.0); %Neutrophils 76.7 % (42.0-75.0); Hemoglobin 7.3 g/dL (14.0-18.0); Mean Corpuscular HGB CONC 34.5 g/dL (32.0-36.0); Mean Corpuscular Hemoglobin 32.4 pg (27.0-31.0); Mean Corpuscular Volume 93.9 fL (78.0-98.0); Mean Platelet Volume 9.9 fL (7.4-10.4); Platelet Count 110 thou/uL (130-400); Platelet Morphology Comment Appears Decreased; RBC Distribution Width 12.8 % (11.5-14.5); RBC Morphology Normal; Red Blood Cell (RBC) Count 2.24 mill/uL (4.70-6.10); White Blood Cell (WBC) Count 6.6 thou/uL (4.8-10.8)
[2018-07-14] MEDS: Sodium Chloride 0.9% 1,000 ML IV SCH ×2 (05:10→15:47)
[2018-07-14 05:11] LABS: BUN (Urea Nitrogen) 123 mg/dL (8.9-20.6)
--- NOTE | 2018-07-14 09:28 | PRG ---
DATE OF SERVICE: 07/14/2018 SUBJECTIVE: Mr. Chun remains in the intermediate care unit. He is awake. He is cooperative. OBJECTIVE: VITAL SIGNS: On exam, temperature 98.8, pulse 78, blood pressure 117/70, and O2 saturation 93%. Total intake for 24 hours 2550, output 1445. HEENT: Unremarkable. NECK: No JVD. CHEST: Clear anteriorly. CARDIAC: S1 and S2, regular. ABDOMEN: Soft. EXTREMITIES: No edema. LABORATORY DATA: White blood cell count 6.6, hematocrit 21.1, and platelet count 110. Sodium 132, potassium 4.2, chloride 106, CO2 of 13, BUN 123, creatinine 5.8, glucose 138, and GFR is estimated at 11. IMAGING DATA: His MRI showed diffuse cerebral edema most likely secondary to uncontrolled hypertension. ASSESSMENT: 1. Hypertensive encephalopathy, which is improving. 2. Methamphetamine abuse. 3. Hypertensive nephropathy with end-stage renal disease. PLAN: 1. We are continuing judicious hydration with the bicarbonate drip. Unfortunately, we have not seen any improvement in his renal function to date. 2. Precedex has been stopped. 3. Plan hydration per Nephrology. He is back on antihypertensives and his blood pressure appears to be doing well. 4. Unfortunately, he does not seem to have much motivation. Stop using methamphetamines. In fact, his significant other has now come back into the ICU and I suspect she may be supplying him with the methamphetamine. Job ID: [id number]
[2018-07-14] MEDS: NIFEdipine XL 60 MG TAB PO SCH (10:11)
[2018-07-14] MEDS: cloNIDine 0.1 MG TAB PO SCH ×2 (10:11→20:23)
[2018-07-14] MEDS: Carvedilol 25 MG TAB PO SCH ×2 (10:11→20:23)
--- NOTE | 2018-07-14 14:08 | PDOC.PN ---
- Subjective Encounter Start Date: 07/14/18 Encounter Start Time: 12:20 Feels much better today. Does not recall the first couple of days here. - Objective Resuscitation Status - Order Detail: 07/12/18 09:26 Resuscitation Status Routine Resuscitation Status: FULL: Full Resuscitation Vital Signs & Weight: Vital Signs (12 hours) Temp BP Pulse Ox 07/14/18 11:30 98.2 F 07/14/18 10:11 129/76 07/14/18 08:26 98.5 F 07/14/18 07:45 98 07/14/18 04:04 98.8 F Weight Admit Weight 174 lb 13.225 oz Weight 175 lb 14.4 oz Most Recent Monitor Data Heart Rate from ECG 76 NIBP 130/83 NIBP BP-Mean 98 Respiration from ECG 19 SpO2 100 I&O: 07/13/18 07/14/18 07/15/18 06:59 06:59 06:59 Intake Total 1878.9 2550 Output Total 450 1445 Balance 1428.9 1105 Result Diagrams: 07/14/18 03:51 07/14/18 03:51 Phys Exam - Physical Examination Constitutional: NAD Respiratory: no wheezing, no rales, no rhonchi, clear to auscultation bilateral Cardiovascular: RRR, no significant murmur, no rub Gastrointestinal: soft, non-tender, no distention, positive bowel sounds Musculoskeletal: no edema Psychiatric: normal affect, A&O x 3 Skin: no rash, normal turgor, cap refill <2 seconds Dx/Plan (1) CKD (chronic kidney disease), stage IV Code(s): N18.4 - CHRONIC KIDNEY DISEASE, STAGE 4 (SEVERE) Status: Acute (2) WILDER (acute kidney injury) Code(s): N17.9 - ACUTE KIDNEY FAILURE, UNSPECIFIED Status: Acute (3) Hypertensive emergency Code(s): I16.1 - HYPERTENSIVE EMERGENCY Status: Acute Comment: Better controlled. Off of Cardene (4) NSTEMI (non-ST elevated myocardial infarction) Code(s): I21.4 - NON-ST ELEVATION (NSTEMI) MYOCARDIAL INFARCTION Status: Acute (5) Tobacco abuse Code(s): Z72.0 - TOBACCO USE Status: Acute (6) Amphetamine abuse Code(s): F15.10 - OTHER STIMULANT ABUSE, UNCOMPLICATED Status: Chronic (7) ETOH abuse Code(s): F10.10 - ALCOHOL ABUSE, UNCOMPLICATED Status: Chronic (8) Hepatitis C Code(s): B19.20 - UNSPECIFIED VIRAL HEPATITIS C WITHOUT HEPATIC COMA Status: Chronic (9) CVA (cerebral vascular accident) Code(s): I63.9 - CEREBRAL INFARCTION, UNSPECIFIED Status: Acute Comment: Multiple areas effected. Secondary to hypertensive encephalopathy/emergency. Not ischemic. (10) Acidosis Code(s): E87.2 - ACIDOSIS Status: Acute - Plan * Doing well overall. * BP is much improved and normalized. * Continue po antihypertensives. * Renal function slightly worse today. Continue IVF and bicarb. Nephrology following. * Cardiac status is stable. * Neuro suspects PRES. I tend to agree given the lack of manifestations in his exam. * Can move to floor at any time.
--- NOTE | 2018-07-14 15:13 | PRG ---
DATE OF SERVICE: 07/14/2018 SUBJECTIVE: Patient was seen and examined at bedside and overnight events noted. Patient denies any shortness of breath or chest pain or palpitation. No history of nausea or vomiting or diarrhea or fever or chills or cramps. OBJECTIVE: GENERAL: This is a well-built male, in no acute distress. VITAL SIGNS: Temperature 98.2. Heart rate 72. Respiratory rate . Blood pressure 130/83. HEENT: Atraumatic, normocephalic. Oral mucosa is moist NECK: Supple. CARDIOVASCULAR: S1, S2 heard. Rate and rhythm regular. RESPIRATORY: Clear to auscultation. GASTROINTESTINAL: Abdomen is soft. MUSCULOSKELETAL: No tenderness. No edema. DERMATOLOGIC: No skin rash. NEUROLOGIC: Alert and awake and oriented X3. No focal neurologic deficits. Moving all the extremities. PSYCHIATRIC: Mood and affect normal. LABORATORY DATA: Potassium is 4.2, BUN is 123, creatinine is 5.8. Urine output is 1445. ASSESSMENT AND PLAN: 1. Acute kidney injury. Urine output is better. 2. Chronic kidney disease, stage 4. 3. Metabolic acidosis and hypertension. 4. Azotemia. 5. Anemia. 6. Polysubstance abuse, counseled. Urine output improving. We will continue to monitor renal function. Avoid nephrotoxins. We will change it to NS and continue IV fluids as tolerated. Monitor cardiorespiratory status. Job ID: [id number]
[2018-07-14] MEDS: Nicotine 21 MG PATCH TD SCH (15:28)
--- NOTE | 2018-07-14 17:15 | PDOC.CTH ---
Cardiology Progress Note - Subjective No new issues. No chest pain. - Objective Vital Signs Temp Pulse Resp BP BP Pulse Ox 07/14/18 15:50 99 07/14/18 15:34 97.7 F 82 20 135/78 99 07/14/18 15:12 97.4 F L 07/14/18 11:30 98.2 F 07/14/18 10:11 129/76 07/14/18 08:26 98.5 F 07/14/18 07:45 98 Admit Weight 174 lb 13.225 oz Weight 183 lb 5 oz 07/13/18 07/14/18 07/15/18 06:59 06:59 06:59 Intake Total 1878.9 2550 Output Total 450 1445 Balance 1428.9 1105 - Physical Examination General/Neuro: alert & oriented x3, NAD Neck: no JVD present Lungs: CTA, unlabored respirations Heart: RRR Abdomen: NT/ND Extremities: + edema B - Labs Result Diagrams: 07/14/18 03:51 07/14/18 03:51 Troponin/CKMB CK-MB (CK-2) 5.5 ng/mL (0-6.6) 07/12/18 03:15 Troponin I 0.215 ng/mL (< 0.028) H 07/12/18 09:01 - Assessment/Plan 1. Hypertensive emergency. 2. Acute CVA, secondary to HTN 3. Acute renal failure. 4. Substance abuse. PLAN: - BP well controlled on current regimen. - Substance abuse counselling. - No new recs.
[2018-07-14] MEDS: Famotidine/PF 20 mg/2ml Vial SLOW IVP SCH (20:24)
[2018-07-14] MEDS ORDERED: traMADol HCl 50 MG TAB PO SCH (21:45)
[2018-07-15 00:33] VITALS: TEMP 98.4
[2018-07-15] MEDS: Sodium Chloride 0.9% 1,000 ML IV SCH ×2 (01:18→08:34)
[2018-07-15 05:05] LABS: #Eosinphils 0.1 thou/uL (0.0-0.7); #Monocytes 0.2 thou/uL (0.11-0.59); %Basophils 0.7 % (0.0-1.0); %Eosinophils 3.4 % (0.0-10.0); %Monocytes 5.1 % (0.0-10.0); %Neutrophils 68.9 % (42.0-75.0); Hemoglobin 6.3 g/dL (14.0-18.0); Mean Corpuscular HGB CONC 35.3 g/dL (32.0-36.0); Mean Corpuscular Volume 93.6 fL (78.0-98.0); Mean Platelet Volume 9.3 fL (7.4-10.4); Platelet Count 104 thou/uL (130-400); Red Blood Cell (RBC) Count 1.89 mill/uL (4.70-6.10); White Blood Cell (WBC) Count 4.4 thou/uL (4.8-10.8)
[2018-07-15 05:10] LABS: Anion Gap 14 mmol/L (10-20); BUN (Urea Nitrogen) 121 mg/dL (8.9-20.6); Calc. Creatinine Clearance 17 mL/min (70-130); Carbon Dioxide 15 mmol/L (22-29); Chloride 111 mmol/L (98-107); Estimated GFR-MDRD 9; Glucose 112 mg/dL (70-105); Potassium 3.9 mmol/L (3.5-5.1); Sodium 136 mmol/L (136-145)
[2018-07-15] MEDS: Nicotine 21 MG PATCH TD SCH (08:35)
[2018-07-15] MEDS: cloNIDine 0.1 MG TAB PO SCH (10:08)
[2018-07-15] MEDS: Carvedilol 25 MG TAB PO SCH (10:08)
[2018-07-15] MEDS: NIFEdipine XL 60 MG TAB PO SCH (10:09)
[2018-07-15 10:10] VITALS: BP 129/78
[2018-07-15] MEDS ORDERED: Sodium Chloride 0.9% 1,000 ML IV SCH (10:48)
--- NOTE | 2018-07-15 11:34 | PRG ---
DATE OF SERVICE: 07/15/2018 SUBJECTIVE: This morning, he is doing better. OBJECTIVE: VITAL SIGNS: Saturations are 100% on room air, blood pressure 120/78, temperature 98, pulse 80, respiratory rate 16. No shortness of breath, coughing, or wheezing. CHEST: Decreased breath sounds. No wheezing. CARDIAC: Normal S1, S2. No gallops. ABDOMEN: No masses. LABORATORY DATA: Shows creatinine is 6.4, BUN is 121, H and H are 6 and 17. He is getting unit of packed cells today. IMPRESSION: Substance abuse, renal failure, hypertension, tobacco abuse. PLAN: Continue supportive care. He was told to refrain from smoking, shooting drugs. Job ID: [id number]
--- NOTE | 2018-07-15 13:01 | PRG ---
DATE OF SERVICE: 07/15/2018 SUBJECTIVE: Patient was seen and examined at bedside and overnight events noted. Patient denies any shortness of breath or chest pain or palpitation. No history of nausea or vomiting or diarrhea or fever or chills or cramps. OBJECTIVE: GENERAL: This is a well-built male, in no apparent distress. VITAL SIGNS: Temperature 98.4. Heart rate 62. Respiratory rate 18. Blood pressure 132/73. HEENT: Atraumatic, normocephalic. Oral mucosa is moist. NECK: Supple. CARDIOVASCULAR: S1, S2 heard. Rate and rhythm regular. RESPIRATORY: Clear to auscultation. GASTROINTESTINAL: Abdomen is soft. MUSCULOSKELETAL: No tenderness. No edema. DERMATOLOGIC: No skin rash. NEUROLOGIC: Alert and awake and oriented x3. No focal neurologic deficits. Moving all the extremities. PSYCHIATRIC: Mood and affect normal. LABORATORY DATA: Potassium 3.9, BUN is 121, and creatinine is 6.4. ASSESSMENT AND PLAN: 1. Acute kidney injury on chronic kidney disease, stage 4. Renal function with worsening, but the patient wants to leave. Advised to leave AMA, but needs close monitoring. 2. Metabolic acidosis. 3. Hypertension. 4. Polysubstance abuse. 5. Azotemia. 6. Anemia. Plan to have transfusion today. Long-term prognosis guarded. The patient counseled to stay in the hospital, but he wants to leave. Will follow up with the clinic, advised to do labs before the clinic. Job ID: [id number]
--- NOTE | 2018-07-16 20:34 | DIS ---
DATE OF ADMISSION: 07/12/2018 DATE OF DISCHARGE: 07/15/2018 DISCHARGE DIAGNOSES: 1. Methamphetamine abuse. 2. Hypertensive emergency. 3. Severe epistaxis. 4. Acute blood loss anemia. 5. Non-ST elevation myocardial infarction, type 2 secondary to hypertensive emergency. 6. Alcohol abuse. 7. Chronic hepatitis C. 8. Cerebrovascular accident consistent with posterior reversible encephalopathy syndrome. 9. Metabolic acidosis. 10. Acute on chronic renal injury. 11. Chronic kidney disease, stage 4. HISTORY: This patient is a 47-year-old male, who apparently got upset with his girlfriend and injected significant amount of methamphetamine. He subsequently developed severe epistaxis and presented to the emergency department in [place]. At that time, the patient had a head CT, which was concerning as well as blood pressure in the 240s to 120s range. He was encouraged to come to the hospital here in [place], but declined and left against medical advice. Subsequently, his girlfriend was able to convince him to present to the hospital, which he did. Subsequent to that, on his arrival actually his blood pressure was significantly improved. HOSPITAL COURSE: The patient was admitted to the Stroke Unit. He had nasal packing that he had removed. However, his epistaxis appeared to have substantially resolved. His girlfriend reported that his mental status had continued to decline since he arrived at the hospital and he did appear encephalopathic. His blood pressure had started to climb significantly again. The case was discussed with Dr. Lorenzo and the patient was moved to the ICU to start IV antihypertensives. At that time, the patient became a bit more agitated and required some Precedex. His urine drug screen was positive for methamphetamine, amphetamine, and cannabis. Once the patient's pressure settled, he was able to go to MRI the following day. The MRI revealed diffuse abnormal signal alteration with multifocal interspersed punctate susceptibility foci spanning the level of the edmond radiata bilaterally involving bilateral deep gibson nuclei extensively and diffusely infiltrating the brainstem with involvement of the imaged upper cervical spinal cord. Neurology was consulted. By that time, the patient was actually back to a fairly normal state of mental health and had no significant neurologic deficits. Dr. Wood felt the patient most likely had PRES and felt no further workup was indicated. The patient did have elevations of his troponin, which was felt to be secondary to NSTEMI type 2 related to the hypertensive emergency and no further workup was undertaken. Cardiology was consulted and followed the patient. The patient's renal function also continued to decline. Dr. Humphreys was the patient's regular physician. Following his renal function, he was consulted and followed the patient as well. He received IV fluids and bicarb. However, his renal function continued to decline. On July 15, his GFR was down to 9 and on a downward trend. At that time, however, the patient being fully awake and not having significant deficits with generally very well controlled blood pressure, decided that he had something at home to do that was more important than being in the hospital and left the hospital against medical advice. PHYSICAL EXAMINATION: VITAL SIGNS: On the day of discharge, his temperature was 98.4, pulse was 82, blood pressure 129/78, O2 saturation 100% on room air. GENERAL: He was awake, alert, oriented, pleasant, cooperative. HEART: Regular rate and rhythm. LUNGS: Clear bilaterally. ABDOMEN: Benign. EXTREMITIES: No edema. NEUROLOGICAL: Appeared to be intact without any significant focal deficits. DISPOSITION: The patient is discharged to home against medical advice. The patient is leaving the hospital against medical advice. I will renew his antihypertensive prescriptions and he will arrange his own followup, although he indicates he has a followup appointment with Dr. Humphreys on Tuesday. Time spent in discharge activities, including face to face time with the patient , was 35 min. Job ID: [id number] MTDD
== END 2018-07-15 14:17 | disposition left against medical advice (07) | DRG 70 ==
LOC: ERS 02:07 → 2SE 04:55 → CCU 10:15 → IMCU/EMU 07-13 11:16 → T4-A 07-14 15:35
PROVIDERS: ADMIT Hospitalist; ATTEND Hospitalist
DX: I67.83 Posterior reversible encephalopathy syndrome (principal); I21.A1 Myocardial infarction type 2; E87.2 Acidosis; N17.9 Acute kidney failure, unspecified; I16.1 Hypertensive emergency; D62 Acute posthemorrhagic anemia; N18.4 Chronic kidney disease, stage 4 (severe); Z66 Do not resuscitate; I13.10 Hypertensive heart and chronic kidney disease without heart failure, with stage 1 through stage 4 chronic kidney disease, or unspecified chronic kidney disease; F17.210 Nicotine dependence, cigarettes, uncomplicated; F15.10 Other stimulant abuse, uncomplicated; B18.2 Chronic viral hepatitis C; I25.10 Atherosclerotic heart disease of native coronary artery without angina pectoris; D63.1 Anemia in chronic kidney disease; F10.10 Alcohol abuse, uncomplicated; Z79.899 Other long term (current) drug therapy; Z91.14 Patient's other noncompliance with medication regimen; I25.2 Old myocardial infarction
CPT/HCPCS: 36415; 36430; 51701; 70551; 80048; 80053; 80306; 80307; 82550; 82553; 84484; 85025; 85610; 85730; 86850; 86900; 86901; 93005; 96361; 96374; J2001; J2060; J3360; J3411; J7050; J7070; P9016; S0028

== ENCOUNTER 2018-09-13 14:05 | Inpatient (IN) | payer SELFPAY ==
[2018-09-13] MEDS ORDERED: niCARdipine 20MG In NaCl 20 MG/200 ML BAG ONE ×2 (14:21→19:39)
[2018-09-13] MEDS ORDERED: Ondansetron PF 4 MG/2 ML Vial ONE ×2 (14:35→20:50)
[2018-09-13 14:38] LABS: #Basophils 0.1 thou/uL (0.0-0.2); #Eosinphils 0.1 thou/uL (0.0-0.7); #Monocytes 0.6 thou/uL (0.11-0.59); #Neutrophils 8.7 thou/uL (1.40-6.50); %Basophils 0.8 % (0.0-1.0); %Eosinophils 0.8 % (0.0-10.0); %Lymphocytes 9.5 % (21.0-51.0); %Monocytes 5.5 % (0.0-10.0); %Neutrophils 83.5 % (42.0-75.0); Hemoglobin 13.8 g/dL (14.0-18.0); Mean Corpuscular HGB CONC 32.9 g/dL (32.0-36.0); Mean Corpuscular Volume 88.3 fL (78.0-98.0); Mean Platelet Volume 9.8 fL (7.4-10.4); Platelet Count 138 thou/uL (130-400); RBC Distribution Width 14.6 % (11.5-14.5); Red Blood Cell (RBC) Count 4.76 mill/uL (4.70-6.10); White Blood Cell (WBC) Count 10.4 thou/uL (4.8-10.8)
[2018-09-13 14:45] LABS: PTT 27.3 SEC (22.9-36.1); Prothrombin Time 13.4 SEC (12.0-14.7)
[2018-09-13 15:02] LABS: Acetaminophen Less than 6.0 mcg/mL (10.0-30.0); Alcohol Less than 10 mg/dL (Less than 10); Salicylate Less than 8.0 mg/dL (15.0-30.0)
--- NOTE | 2018-09-13 15:02 | RAD ---
PORTABLE CHEST: Date: 09/13/18 HISTORY: Dyspnea. COMPARISON: 07/11/18 study. FINDINGS: Heart size and mediastinum are within normal limits. The lungs are clear of any infiltrative process. There are no significant bony findings. IMPRESSION: No active intrathoracic disease. POS: H
[2018-09-13 15:03] LABS: ALT (SGPT) 38 U/L (8-55); AST (SGOT) 33 U/L (5-34); Albumin 4.2 g/dL (3.5-5.0); Alkaline Phosphatase 170 U/L (40-150); Anion Gap 17 mmol/L (10-20); BUN (Urea Nitrogen) 39 mg/dL (8.9-20.6); Bilirubin, Total 1.2 mg/dL (0.2-1.2); Calc. Creatinine Clearance 0 mL/min (70-130); Carbon Dioxide 19 mmol/L (22-29); Chloride 107 mmol/L (98-107); Estimated GFR-MDRD 27; Globulin 3.5 g/dL (2.4-3.5); Glucose 124 mg/dL (70-105); Potassium 4.2 mmol/L (3.5-5.1); Protein, Total 7.7 g/dL (6.0-8.3); Sodium 139 mmol/L (136-145)
[2018-09-13 16:57] LABS: Amphetamine Detected (NotDetected); Barbiturates Screen Not Detected (NotDetected); Benzodiazepine Screen Not Detected (NotDetected); Cocaine Metabolite Screen Not Detected (NotDetected); Medtox Reader # READER 4; Methadone Not Detected (NotDetected); Methamphetamine Detected (NotDetected); Opiate Screen Not Detected (NotDetected); Oxycodone Screen Not Detected (NotDetected); Phencyclidine (PCP) Not Detected (NotDetected); THC/Cannabinoid Screen Detected (NotDetected); Tricyclic Screen Not Detected (NotDetected)
[2018-09-13 16:58] LABS: Medtox Control Line Valid? VALID (VALID)
--- NOTE | 2018-09-13 17:11 | CT ---
CT BRAIN NONCONTRAST: DATE: 09/13/2018 TIME: 2:45 p.m. HISTORY: A 47-year-old male with headache, nausea, and vomiting. COMPARISON: 07/11/2018 FINDINGS: Dr. Champagne discussed the findings, by telephone, with Dr. Pinzon at 4:11 p.m. on 09/13/2018. IMPRESSION: There is a few finding of diffuse effacement of sulcal markings throughout the cerebrum, and a new fi nding of effacement of the basal cisterns. The 3rd and 4th ventricles have become narrower, especial ly the 4th ventricle, which is now abnormally small in caliber. The bodies of the lateral ventricles are within normal limits in size. There is another new finding of increasing diffusely low attenuation, consistent with edema, througho ut the bilateral deep cerebral white matter, external capsules, thalami, midbrain, tre, and probably medulla, compared to the previous CT. This also involves the basal ganglia bilaterally, to a lesser degree. There is no evidence of acute intraaxial or extraaxial hemorrhage. No midline shift. The calvarium is intact. The frontal sinuses and upper portions of the ethmoid and sphenoid sinuses, and the bilat eral tympanomastoid cavities, are grossly clear. IMPRESSION: 1. New finding of increased intracranial pressure. 2. Interval worsening of edema in the central portions of the brain, including central deep cerebral white matter, deep Ledesma nuclei, and brainstem. 3. Etiology is uncertain, but possibilities include osmotic demyelination, intracranial infection, a nd various toxic and metabolic syndromes. 4. Recommend MRI brain with and without contrast. CODE CR JN R POS: OFF
--- NOTE | 2018-09-13 22:02 | CON ---
DATE OF CONSULTATION: This is Law Ward PA-C dictating a report for Sal Sam MD. This is a 50-minute initial patient evaluation, of which greater than 50% of the exam was spent in counseling and coordinating the patient's care. Remainder of the exam was spent in review of the patient's medical records and formulation of treatment plan. CHIEF COMPLAINT: Headache with history of methamphetamine abuse and CT concerning for cerebral edema. HISTORY OF PRESENT ILLNESS: Mr. Chun is a 47-year-old male, who presents to [facility] for the above complaints. Apparently, the patient has had a significant drug abuse history and notes that he was using methamphetamines roughly 1 week ago. He apparently had a reported nosebleed, although according to the patient and his sister who is at bedside, this is untrue. Nonetheless, he was crawling on the floor earlier today, which prompted his mother to call his sister and subsequently they presented to the emergency room. Upon arrival, the patient's systolic blood pressure was in the 300s and he has been on nicardipine to help improve his systolic blood pressure. He notes some dizziness as well as headaches, but denies any type of fall. He denies blurred vision, nausea, vomiting, or any weakness in the extremities. He states however with his improved blood pressure, his headaches have improved. He also has significant kidney issues, which may be leading to his hypertension and he is scheduled to begin dialysis soon. His urine tox screen is positive for methamphetamines, amphetamines, and cannabis. Review of the patient's CT scan shows significant sulcal effacement. However, there does not appear to be any type of acute intracranial hemorrhage, and the ventricles appear to be stable as compared to what they were in June when he was last admitted due to hypertension. There does not appear to be any active herniation of the brain. PHYSICAL EXAMINATION: The patient is awake, alert, and appropriate. GCS currently is 15. He has no pronator drift. Pupils are equal, round, and reactive bilaterally. He has good strength in all the extremities with intact sensation to light touch throughout. He has no tenderness to palpation of the cervical spine and good range of motion of the cervical spine. He has no visual field deficit on confrontation exam. Again, he is completely neurologically intact at this time. IMPRESSION AND DIAGNOSES: 1. Status post hypertensive crisis with cerebral edema noted on CT scan. 2. Acute kidney injury with elevated creatinine, likely requiring dialysis. 3. Multisubstance abuse. PLAN: At this time, I have discussed the patient's case and imaging with Dr. Sam. The patient is neurologically intact and therefore does not require any type of ICP monitor device or even an EVD. We will closely follow his neurologic exam and obviously ideally his systolic blood pressure would be less than 150. Nephrology will also be seeing the patient. assistant to the vice president has admitted the patient. We will follow up on a repeat head CT in the morning. However, again there is no role for neurosurgery at this time. I do believe that as the patient's blood pressure improves that the cerebral edema will also improve. I have discussed at great length the importance of blood pressure control and avoidance of any type of hypertensive agents including methamphetamine. I have also discussed that the patient will likely require treatment of his kidney issues with dialysis to also further help improve his blood pressure. Please ensure that the patient's head of bed is elevated at 30 degrees and again we will repeat his head CT in the morning, sooner should his neurologic status change. Please call with any changes. Job ID: [id number]
[2018-09-13] MEDS: niCARdipine 25 MG in Sodium Chloride 0.9% 250 ML 240 ML IVPB SCH (23:43)
--- NOTE | 2018-09-14 03:03 | HP ---
CHIEF COMPLAINT: Found down. HISTORY OF PRESENT ILLNESS: This patient is a 47-year-old male, whom I know from previous admission. At that time, the patient had injected methamphetamine, came in with hypertensive urgency, severe epistaxis, and substantial findings on his MRI of the brain, thought to ultimately be PRES. He had full recovery. Blood pressure completely normalized on p.o. medications, and the patient left the hospital against medical advice. The patient subsequently apparently has been trying to live with his sister and her recently. She has been diligently working to get him plugged into a primary care physician, on his medications, and to avoid using the drugs. He reports that he has not been taking his medications because of cost issues and reports the last time he used methamphetamine was a week ago or perhaps a little less. The patient has been complaining of headache for the past week. He has had some associated vomiting and has some generalized malaise during the last couple of days as well. Today, the patient was found by a family member awake, but lying on the ground longterm in and longterm out of the front door. When approached, he indicated that he was trying to get outside, so that he could vomit. At that time, EMS was called and the patient's systolic blood pressure was 300. He was subsequently brought to the emergency department. The patient reports that he had no true loss of consciousness during this episode. His first blood pressure on arrival was 300/140. He was started on a Cardene drip, and his most recent blood pressure is 187/115. Currently, the patient reports that he feels essentially at baseline. Headache is resolved. Denies any nausea at present. REVIEW OF SYSTEMS: Only the above-noted headache, nausea, lethargy, and some minimal epistaxis. He has been eating and drinking well. He has had normal bowel and bladder habits. All other systems reviewed. All pertinent positives and negatives noted in the history of present illness. PAST MEDICAL HISTORY: The patient has had a number of prior admissions for hypertensive urgencies as noted above. He has hypertension; hep C; drug abuse; history of prior MIs; chronic kidney disease, stage 4; severe left ventricular hypertrophy; and history of medication noncompliance. PAST SURGICAL HISTORY: None. FAMILY HISTORY: No premature coronary artery disease or stroke. SOCIAL HISTORY: The patient is a pack-a-day smoker, daily marijuana user, and continued methamphetamine use and abuse. He is a full code, and his sister is his surrogate decision maker. ALLERGIES: NONE. CURRENT MEDICATIONS: Again, the patient has had some noncompliance. Says he is not able to afford his nifedipine. He is on carvedilol 25 b.i.d. and clonidine 0.2 b.i.d., but has only been back on those in the last week or two and was previously not taking those either. PHYSICAL EXAMINATION: VITAL SIGNS: Blood pressure is variable but last reading I saw was 187/116, pulse was 93, respirations 20, temperature 97.6, and O2 sats 98% on room air. GENERAL APPEARANCE: Age-appropriate male. He is awake, alert, oriented, pleasant, and cooperative. He is in no distress. HEENT: PERRL. No OP lesions. NECK: Supple and symmetric. No lymphadenopathy, JVD, or carotid bruits. HEART: Hyperdynamic. No murmurs, gallops, or rubs. LUNGS: Clear and diminished. No wheezes, no rales. ABDOMEN: Soft, nontender, and nondistended. Positive bowel sounds. No masses. No organomegaly. EXTREMITIES: No cyanosis, clubbing, or edema. NEURO: The patient's cranial nerves are intact. He has normal spontaneous movement of all extremities. Normal sensation throughout with no deficits identified. PSYCH: Normal affect and behavior. IMAGING DATA: CT of the head shows new finding of increased intracranial pressure, worsening edema of the central portions of the brain including central deep and cerebral white matter, deep gibson nuclei and brainstem as compared to the previous labs. Chest x-ray shows no active disease. LABORATORY DATA: White count 10.4, hemoglobin 13.8, and platelets 138. PT 13.4 , INR 1.0. Sodium 139, potassium 4.2, chloride 107, CO2 of 19, BUN 39, creatinine 2.59, GFR is 27, glucose 124, calcium 10.0, and alkaline phosphatase 170. BNP is 3660. Urine drug screen positive for amphetamines/methamphetamine and cannabis. IMPRESSION AND PLAN: 1. Hypertensive emergency with documented cerebral edema. Neurosurgery was contacted in the emergency department and recommended continued management of his blood pressure, but no further recommendations. We will continue with the Afia barney. Admit to the ICU. He is currently completely asymptomatic and has no stigmata of the hypertensive urgency. This patient has been through this previous times. Last time, it appeared to be directly related to the use of methamphetamine and once this was metabolized away, the patient's blood pressure was actually quite well controlled with p.o. medications. 2. Methamphetamine abuse. 3. Cannabis abuse. 4. Elevated BNP, certainly consistent with his severe hypertensive urgency. The patient has longstanding hypertrophic cardiomyopathy secondary to the longstanding hypertension. He has no evidence of any true volume overload at this point. 5. Chronic kidney disease, stage 4. His last GFR was 9 in July and it is now 27. The patient and his sister report that he was actually set up to see a access database developer as an outpatient, but that unfortunately was not done quite yet. 6. Cerebral edema secondary to hypertensive urgency. The patient remarkably had severe findings on his MRI previously and had no manifestations and again, he has significant cerebral edema currently with no manifestations. Certainly at some point, if this continues, the patient will likely suffer some type of stroke or hemorrhagic event in the future. He has been made well aware of this on several occasions. Critical Care time 40 min. Job ID: [id number] MTDD
[2018-09-14] MEDS: niCARdipine 25 MG in Sodium Chloride 0.9% 250 ML 240 ML IVPB SCH ×2 (04:26→06:43)
[2018-09-14] MEDS: Acetaminophen 325 MG TAB PO PRN (04:42)
[2018-09-14] MEDS: Ondansetron PF 4 MG/2 ML Vial IVP PRN (05:28)
[2018-09-14 05:34] LABS: #Basophils 0.1 thou/uL (0.0-0.2); #Eosinphils 0.1 thou/uL (0.0-0.7); #Lymphocytes 1.5 thou/uL (1.20-3.40); #Monocytes 0.8 thou/uL (0.11-0.59); #Neutrophils 11.5 thou/uL (1.40-6.50); %Basophils 0.5 % (0.0-1.0); %Eosinophils 0.5 % (0.0-10.0); %Lymphocytes 10.5 % (21.0-51.0); %Monocytes 5.5 % (0.0-10.0); Hemoglobin 13.9 g/dL (14.0-18.0); Mean Corpuscular HGB CONC 32.8 g/dL (32.0-36.0); Mean Corpuscular Hemoglobin 29.4 pg (27.0-31.0); Mean Corpuscular Volume 89.6 fL (78.0-98.0); Mean Platelet Volume 9.9 fL (7.4-10.4); Platelet Count 145 thou/uL (130-400); RBC Distribution Width 14.6 % (11.5-14.5); Red Blood Cell (RBC) Count 4.72 mill/uL (4.70-6.10); White Blood Cell (WBC) Count 13.8 thou/uL (4.8-10.8)
[2018-09-14 05:52] LABS: Anion Gap 16 mmol/L (10-20); BUN (Urea Nitrogen) 43 mg/dL (8.9-20.6); Calc. Creatinine Clearance 37 mL/min (70-130); Calcium 9.8 mg/dL (7.8-10.44); Carbon Dioxide 17 mmol/L (22-29); Chloride 105 mmol/L (98-107); Estimated GFR-MDRD 25; Glucose 151 mg/dL (70-105); Potassium 4.2 mmol/L (3.5-5.1); Sodium 134 mmol/L (136-145)
[2018-09-14] MEDS: Carvedilol 25 MG TAB PO SCH ×2 (08:14→20:10)
--- NOTE | 2018-09-14 08:24 | CON ---
DATE OF CONSULTATION: HISTORY OF PRESENT ILLNESS: Mr. Chun is a 47-year-old gentleman, who presented with a headache, who has his history of recurrent admission to the hospital with uncontrolled hypertension and polysubstance drug abuse. This morning, he is unclear why he came to the hospital, but he said he had a headache. Denies any shortness of breath, coughing, or wheezing. He wants to eat. He is on a Cardene drip, which he is trying to slowly wean off. PAST MEDICAL HISTORY: Hypertension, hepatitis C, renal failure, TIA, and coronary artery disease. PAST SURGICAL HISTORY: None. SOCIAL HISTORY: Alcohol abuse, substance abuse, multiple tobacco abuse. MEDICATIONS: His medications at home includes, 1. Coreg 25 twice a day. 2. Catapres 0.2 twice a day. 3. Nifedipine 60 a day. ALLERGIES: NONE. SOCIAL HISTORY: Disabled, not working. FAMILY HISTORY: Unremarkable. REVIEW OF SYSTEMS: Ten-point negative. PHYSICAL EXAMINATION: GENERAL: He is awake, alert, responsive, logically intact. VITAL SIGNS: Blood pressure 140/81, pulse 80, respiratory rate 18, and saturations 99%. CHEST: No wheezing or crackles. CARDIAC: Normal S1 and S2. No gallops. ABDOMEN: No masses. LABORATORY DATA: White count 13,000. Lytes are normal. Platelet count is normal. Creatinine is 2.80. Urine toxicology reveals methamphetamine and cannabinoids. IMAGING STUDIES: He had a CT brain done last night, which showed some mild cerebral edema. CT head today showed similar findings. IMPRESSION: Uncontrolled hypertension, polysubstance drug abuse, cerebral edema, seen by Neurosurgery, and renal failure. PLAN: Restart home medication. Diet, PT, supportive care. We will follow while in the ICU. Consultation note, 70 minutes, 50% direct patient care. Job ID: [id number]
--- NOTE | 2018-09-14 08:46 | CT ---
PRELIMINARY REPORT/[facility]/EMERGENCY AFTER HOURS PROCEDURE: EXAM: CT Head Without Contrast EXAM DATE/TIME: 09/14/2018 4:03 AM CLINICAL HISTORY: 47 years old, male; Condition or disease; Patient HX: F/u cerebral edema with HTN crisis TECHNIQUE: Imaging protocol: Computed tomography images of the head without contrast. COMPARISON: CT Brain WO Con 09/13/2018 2:44 PM FINDINGS: Brain: No evidence of acute large vessel infarction. No evidence of acute intracranial hemorrhage, extraxial fluid or midline shift. Effaced cerebral sulci. Effaced basilar cisterns. Moderate low dens ity changes within the white matter bilaterally, thalami, brainstem and likely cerebellum. Ventricles: Normal. No ventriculomegaly. Bones/joints: Unremarkable. No acute fracture. Sinuses: Visualized sinuses are unremarkable. No fluid levels. Mastoid air cells: Visualized mastoid air cells are well aerated. No mastoid effusion. Soft tissues: Unremarkable. IMPRESSION: 1. No evidence of acute large vessel infarction. 2. No evidence of acute intracranial hemorrhage, extraxial fluid or midline shift. 3. Persistent extensive low density changes-edema involving central structures of the brain, unchange d. 4. Findings consistent with increased intracranial pressure with effacement of the cerebral sulci and basilar cisterns. Thank you for allowing us to participate in the care of your patient. Dictated and Authenticated by: Sydney Farley MD 09/14/2018 4:47 AM Central Time ([place] & [place]) FINAL REPORT HEAD CT WITHOUT CONTRAST: Date: 09/14/18 COMPARISON: 09/13/18, 07/11/18. FINDINGS: There is no parenchymal hemorrhage or extra-axial hematoma. Continued sulcal effacement. Stable confi guration of the ventricular system. Stable hypoattenuation involving the white matter structures, rosemary p gibson matter structures, as well as the mid brain and tre. Adequate aeration of the sinuses and mastoid air cells. IMPRESSION: This report is in agreement with the preliminary report by Yuliya. Findings compatible with increased i ntracranial pressure, as well as cerebral edema. POS: OFF
[2018-09-14] MEDS ORDERED: NIFEdipine XL 60 MG TAB PO SCH (09:00)
[2018-09-14] MEDS ORDERED: cloNIDine 0.1 MG TAB PO SCH (09:00)
[2018-09-14] MEDS ORDERED: hydrALAZINE 20 MG/ML VIAL SLOW IVP PRN (11:49)
--- NOTE | 2018-09-14 11:53 | PDOC.HOSPP ---
- Subjective Subjective: 47 y/o male with polysubstance abuse, uncontrolled HTN associated with PRES, CKD 4 and others admitted with severe headache associated with vomiting. Found to have markedly elevated BP of 300/140 associated with cerebral edema. Started obn alyssa infusion with improvement of BP and symptoms. tolerating oral intake. - Objective Vital Signs & Weight: Vital Signs (12 hours) Temp Pulse 09/14/18 11:00 98.7 F 09/14/18 08:14 95 09/14/18 07:00 98.0 F 09/14/18 00:00 98.3 F Weight Weight 172 lb 6.424 oz Most Recent Monitor Data Heart Rate from ECG 90 NIBP 149/95 NIBP BP-Mean 113 Respiration from ECG 20 SpO2 99 I&O: 09/13/18 09/14/18 09/15/18 06:59 06:59 06:59 Intake Total 660 1158 Output Total 250 0 Balance 410 1158 Result Diagrams: 09/14/18 05:07 09/14/18 05:07 ROS - Review of Systems All systems: All other ROS were reviewed and found negative. - Medication Medications: Active Medications Generic Name Dose Route Start Last Admin Trade Name Freq PRN Reason Stop Dose Admin Acetaminophen 650 mg 09/13/18 19:27 09/14/18 04:42 Tylenol PO 650 mg Q4H PRN Administration Headache/Fever/Mild Pain (1-3) Carvedilol 25 mg 09/14/18 09:00 09/14/18 08:14 Coreg PO 25 mg BID SIRI Administration Nicardipine HCl 25 mg/ Sodium 250 mls @ 0 mls/hr 09/13/18 19:45 09/14/18 06: 43 Chloride IVPB 250 mls INF SIRI Administration Protocol Titrate Ondansetron HCl 4 mg 09/13/18 19:31 09/14/18 05:28 Zofran IVP 4 mg Q6H PRN Administration Nausea/Vomiting Sodium Chloride 10 ml 09/14/18 09:00 09/14/18 08:15 Flush - Normal Saline IVF 10 ml Q12HR SIRI Administration - Exam awake alert Eye: anicteric sclera ENT: normocephalic atraumatic Neck: supple, symmetric, no JVD Heart: RRR Respiratory: CTAB, no wheezes, no rales, no ronchi Gastrointestinal: soft, non-tender, non-distended, normal bowel sounds Extremities: no cyanosis, no clubbing, no edema Neurological: CN's grossly intact, no focal deficits Hosp A/P (1) Cerebral edema Code(s): G93.6 - CEREBRAL EDEMA Status: Acute (2) Cannabis abuse Code(s): F12.10 - CANNABIS ABUSE, UNCOMPLICATED Status: Acute (3) Dambx-ol-bzxiabb renal failure Code(s): N17.9 - ACUTE KIDNEY FAILURE, UNSPECIFIED; N18.9 - CHRONIC KIDNEY DISEASE, UNSPECIFIED Status: Acute (4) CKD (chronic kidney disease), stage IV Code(s): N18.4 - CHRONIC KIDNEY DISEASE, STAGE 4 (SEVERE) Status: Acute (5) Hypertensive emergency Code(s): I16.1 - HYPERTENSIVE EMERGENCY Status: Acute (6) Amphetamine abuse Code(s): F15.10 - OTHER STIMULANT ABUSE, UNCOMPLICATED Status: Chronic (7) Hepatitis C Code(s): B19.20 - UNSPECIFIED VIRAL HEPATITIS C WITHOUT HEPATIC COMA Status: Chronic - Plan DC clonidine due to risk of rebound in this patient with non compliance and subsrt=tance abuse. increase nifedipine to 60 bid. Continue coreg. DC cardene infusion Diet as tolerated. Transfer to telemetry Start IV hydralazine as needed for acute elevations in BP. Monitor renal function.
--- NOTE | 2018-09-14 18:04 | CON ---
DATE OF CONSULTATION: REASON FOR CONSULTATION: Elevated creatinine. HISTORY OF PRESENT ILLNESS: This is a 47-year-old gentleman, followed by Dr. Humphreys, presented to the hospital for cerebral edema after hypertensive urgency episode. The patient's creatinine at baseline had ranged anywhere . He denies any shortness of breath or cough, and he PAST MEDICAL HISTORY: Significant for hypertension, hepatitis C, TIA, coronary artery disease, and drug use. SOCIOECONOMIC HISTORY: Drug use. MEDICATIONS: Home medication list, reviewed. Hospital medication list, reviewed. ALLERGIES: REVIEWED. REVIEW OF SYSTEMS: A 10-point review of systems was performed and was negative except for positives noted above. GENERAL: HEAD: NECK: No swelling or lumps. NOSE: No epistaxis or discharge. EYES: No diplopia or pain. RESPIRATORY: CARDIOVASCULAR: GASTROINTESTINAL: /RETAIL KEY HOLDER: MUSCULOSKELETAL: No joint pain. NEUROPSYCHIATIC SYSTEMS: No suicidal ideation. No ideation. SKIN: Denies any rash or ulcer. CONSTITUTIONAL: No fever or chills. PHYSICAL EXAMINATION: GENERAL: The patient is awake and alert. VITAL SIGNS: Afebrile, pulse 88, breathing 16, blood pressure 141/94. GENERAL APPEARANCE AND MENTAL STATUS: Fair. HEAD/NECK: Normocephalic. Atraumatic. EYES: EOMI. No deformity. EARS: Clear. No ulcers. NOSE: Intact. No lesions. MOUTH: Clear. No discharge. THROAT: Clear. No exudate. LUNGS: Clear. No crackles. CARDIAC: S1, S2. No rub. ABDOMEN: Benign. Bowel sounds positive. GENITALIA/RECTUM: Anton absent. BACK/EXTREMITIES: Edema 0+. NEUROLOGICAL: Alert and motor intact. SKIN: LYMPHATICS: LABORATORY DATA: Reviewed. ASSESSMENT AND PLAN: 1. Acute kidney injury with chronic kidney disease, stage 4 due to acute tubular necrosis due to hypertensive urgency. Continue close monitoring and observation. 2. Hypertension. Management per primary team. 3. Anemia, stable. 4. Medication based on GFR, appropriate. 5. No indication for dialysis. Job ID: [id number]
[2018-09-14] MEDS: NIFEdipine XL 60 MG TAB PO SCH (20:09)
[2018-09-14] MEDS: Nicotine 14 MG PATCH TOP SCH (20:14)
[2018-09-14 21:42] VITALS: BMI 23.3
[2018-09-15 05:03] LABS: Albumin 3.8 g/dL (3.5-5.0); Anion Gap 15 mmol/L (10-20); BUN (Urea Nitrogen) 63 mg/dL (8.9-20.6); BUN/Creatinine Ratio 16.45; Calc. Creatinine Clearance 28 mL/min (70-130); Calcium 9.2 mg/dL (7.8-10.44); Carbon Dioxide 20 mmol/L (22-29); Chloride 99 mmol/L (98-107); Estimated GFR-MDRD 17; Glucose 113 mg/dL (70-105); Phosphorus 3.5 mg/dL (2.3-4.7); Potassium 3.2 mmol/L (3.5-5.1); Sodium 131 mmol/L (136-145)
[2018-09-15] MEDS: NIFEdipine XL 60 MG TAB PO SCH ×2 (09:11→19:50)
[2018-09-15] MEDS: Carvedilol 25 MG TAB PO SCH ×2 (09:11→19:50)
--- NOTE | 2018-09-15 09:44 | PRG ---
DATE OF SERVICE: 09/15/2018 SUBJECTIVE: A 47-year-old gentleman, being seen for acute kidney injury. The patient denied any nausea, vomiting, or chest pain. OBJECTIVE: CONSTITUTIONAL: The patient is awake and alert. VITAL SIGNS: Pulse 75, breathing 16, blood pressure 137/78. GENERAL APPEARANCE AND MENTAL STATUS: Fair. HEAD/NECK: Normocephalic. Atraumatic. EYES: EOMI. No deformity. EARS: Clear. No ulcers. NOSE: Intact. No lesions. MOUTH: Clear. No discharge. THROAT: Clear. No exudate. LUNGS: Clear. No crackles. CARDIAC: S1, S2. No rub. ABDOMEN: Benign. Bowel sounds positive. GENITALIA/RECTUM: Anton absent. BACK/EXTREMITIES: Edema 0+. NEUROLOGICAL: Alert and motor intact. SKIN: LYMPHATICS: LABORATORY DATA: Hemoglobin 13.9. Creatinine 3.3. ASSESSMENT AND PLAN: 1. Acute kidney injury with chronic kidney disease, stage 4, most likely due to acute tubular necrosis due to polysubstance use. No indication for dialysis. 2. Hypertension, stable. 3. Anemia, stable. 4. Congestive heart failure. Overall prognosis is poor. No indication for dialysis. Job ID: [id number]
--- NOTE | 2018-09-15 10:25 | PDOC.HOSPP ---
- Subjective Subjective: 47 y/o male with polysubstance abuse, uncontrolled HTN associated with PRES, CKD 4 and others admitted with severe headache associated with vomiting. Found to have markedly elevated BP of 300/140 associated with cerebral edema. Started on alyssa infusion with improvement of BP and symptoms. Subsequently transitioned to oral antihypertensives and transfered out of ICU. No new problem. Denied Nausea, vomiting or change in bowel habit. Tolerating oral intake. - Objective Vital Signs & Weight: Vital Signs (12 hours) Temp Pulse Resp BP Pulse Ox 09/15/18 09:11 95 09/15/18 08:20 94 L 09/15/18 08:01 97.8 F 95 18 137/78 94 L 09/15/18 04:20 98.1 F 91 22 H 169/100 H 100 09/14/18 23:55 90 161/100 H Weight Weight 6.254 oz Most Recent Monitor Data Heart Rate from ECG 91 NIBP 145/106 NIBP BP-Mean 119 Respiration from ECG 30 SpO2 100 I&O: 09/14/18 09/15/18 09/16/18 06:59 06:59 06:59 Intake Total 660 2038 Output Total 250 1250 Balance 410 788 Result Diagrams: 09/14/18 05:07 09/15/18 04:27 ROS - Review of Systems All systems: All other ROS were reviewed and found negative. - Medication Medications: Active Medications Generic Name Dose Route Start Last Admin Trade Name Freq PRN Reason Stop Dose Admin Acetaminophen 650 mg 09/13/18 19:27 09/14/18 04:42 Tylenol PO 650 mg Q4H PRN Administration Headache/Fever/Mild Pain (1-3) Carvedilol 25 mg 09/14/18 09:00 09/15/18 09:11 Coreg PO 25 mg BID SIRI Administration Isosorbide Mononitrate 30 mg 09/15/18 09:00 09/15/18 09:11 Imdur Er PO 30 mg DAILY SIRI Administration Nicotine 14 mg 09/14/18 18:30 09/14/18 20:14 Nicoderm Patch TOP 14 mg Q24HR SIRI Administration Nifedipine 60 mg 09/14/18 21:00 09/15/18 09:11 Procardia Xl PO 60 mg BID SIRI Administration Ondansetron HCl 4 mg 09/13/18 19:31 09/14/18 05:28 Zofran IVP 4 mg Q6H PRN Administration Nausea/Vomiting Sodium Chloride 10 ml 09/14/18 09:00 09/15/18 09:11 Flush - Normal Saline IVF 10 ml Q12HR SIRI Administration - Exam awake alert Eye: anicteric sclera ENT: normocephalic atraumatic Neck: symmetric, no JVD Heart: RRR Respiratory: no wheezes, no rales, no ronchi, normal chest expansion Gastrointestinal: soft, non-tender, non-distended, normal bowel sounds Extremities: no cyanosis, no clubbing, no edema Neurological: CN's grossly intact, no focal deficits Musculoskeletal: normal tone, normal strength Psychiatric: normal affect, A&O x 3 Hosp A/P (1) Cerebral edema Code(s): G93.6 - CEREBRAL EDEMA Status: Acute (2) Cannabis abuse Code(s): F12.10 - CANNABIS ABUSE, UNCOMPLICATED Status: Acute (3) Cvele-fe-ibdtpez renal failure Code(s): N17.9 - ACUTE KIDNEY FAILURE, UNSPECIFIED; N18.9 - CHRONIC KIDNEY DISEASE, UNSPECIFIED Status: Acute (4) CKD (chronic kidney disease), stage IV Code(s): N18.4 - CHRONIC KIDNEY DISEASE, STAGE 4 (SEVERE) Status: Acute (5) Hypertensive emergency Code(s): I16.1 - HYPERTENSIVE EMERGENCY Status: Acute (6) Amphetamine abuse Code(s): F15.10 - OTHER STIMULANT ABUSE, UNCOMPLICATED Status: Chronic (7) Hepatitis C Code(s): B19.20 - UNSPECIFIED VIRAL HEPATITIS C WITHOUT HEPATIC COMA Status: Chronic - Plan Start isosorbid dinitrate. Start gentle IV hydration for presumed volume depletion with appropriate ADH leading to hyponatremia Vilonia oral intake advised Get Renal US. Nephrology following.
[2018-09-15] MEDS: Sodium Chloride 0.9% 1,000 ML IV SCH (11:18)
--- NOTE | 2018-09-15 11:49 | PRG ---
DATE OF SERVICE: 09/15/2018 This is a 30-minute initial visit note, in which 30 minutes were spent reviewing the imaging record, evaluation, examination of the patient, and formulation of plan. Greater than 50% time was spent in counseling on Rakesh Chun. Mr. Chun is a 47-year-old gentleman, came in with hypertensive crisis and evidence of cerebral edema with headache. He has white matter changes again related to his hypertensive crisis. Blood pressure has been under better control. He is now on the floor. We discussed findings of PRES, which I do not suspect he has, but certainly at risk for. On exam, he is neurologically intact. He has no visual field deficits. There is no need to follow up with Neurosurgery as again improved blood pressure control will improve any findings on the CT scan. I have strongly encouraged him to be diligent in regard to his blood pressure control. DIAGNOSIS: Hypertensive crisis. Job ID: [id number]
--- NOTE | 2018-09-15 13:31 | ULT ---
Renal ultrasound: 09/15/2018 COMPARISON: None HISTORY: Chronic kidney disease, hypertension FINDINGS: Detailed assessment of both kidneys is limited secondary to bowel gas and body habitus. Rig ht kidney measures approximately 10 cm in craniocaudal dimension. No hydronephrosis or renal stone noted on the right. Detailed assessment of the left kidney is markedly limited. No left-sided hydronephrosis. Left kidney is estimated at 10 cm in craniocaudal dimension. There is an incompletely assessed hypoechoic lesion within the left kidney measuring approximately 1. 6 x 1.8 x 1.2 cm. Urinary bladder demonstrates no acute findings. IMPRESSION: Limited assessment of the kidneys as detailed above. No hydronephrosis. Small hypoechoic lesion within the left kidney, not optimally characterized on this exam. This is favored to represent a small cyst.
[2018-09-15] MEDS: Nicotine 14 MG PATCH TOP SCH (17:40)
[2018-09-16 05:49] LABS: Albumin 3.7 g/dL (3.5-5.0); Anion Gap 15 mmol/L (10-20); BUN (Urea Nitrogen) 63 mg/dL (8.9-20.6); BUN/Creatinine Ratio 16.58; Calc. Creatinine Clearance 0 mL/min (70-130); Calcium 8.9 mg/dL (7.8-10.44); Carbon Dioxide 20 mmol/L (22-29); Chloride 103 mmol/L (98-107); Estimated GFR-MDRD 17; Glucose 104 mg/dL (70-105); Phosphorus 4.2 mg/dL (2.3-4.7); Potassium 3.3 mmol/L (3.5-5.1); Sodium 135 mmol/L (136-145)
[2018-09-16 06:13] LABS: #Basophils 0.1 thou/uL (0.0-0.2); #Eosinphils 0.1 thou/uL (0.0-0.7); #Monocytes 0.6 thou/uL (0.11-0.59); #Neutrophils 4.9 thou/uL (1.40-6.50); %Basophils 1.1 % (0.0-1.0); %Eosinophils 2.2 % (0.0-10.0); %Lymphocytes 15.2 % (21.0-51.0); %Monocytes 9.3 % (0.0-10.0); %Neutrophils 72.4 % (42.0-75.0); Mean Corpuscular HGB CONC 33.2 g/dL (32.0-36.0); Mean Corpuscular Hemoglobin 29.6 pg (27.0-31.0); Mean Platelet Volume 9.7 fL (7.4-10.4); Platelet Count 113 thou/uL (130-400); Platelet Morphology Comment Appears Decreased; RBC Distribution Width 14.6 % (11.5-14.5); Red Blood Cell (RBC) Count 3.71 mill/uL (4.70-6.10); White Blood Cell (WBC) Count 6.8 thou/uL (4.8-10.8)
[2018-09-16] MEDS: Sodium Chloride 0.9% 1,000 ML IV SCH (07:03)
[2018-09-16] MEDS: NIFEdipine XL 60 MG TAB PO SCH ×2 (09:01→21:18)
[2018-09-16] MEDS: Carvedilol 25 MG TAB PO SCH ×2 (09:01→21:19)
--- NOTE | 2018-09-16 10:23 | PRG ---
DATE OF SERVICE: 09/16/2018 SUBJECTIVE: A 47-year-old gentleman, being seen for acute kidney injury. The patient denied any nausea, vomiting, or chest pain. OBJECTIVE: GENERAL: The patient is awake and alert. VITAL SIGNS: Afebrile, pulse 97, breathing 16, blood pressure 133/76. GENERAL APPEARANCE AND MENTAL STATUS: Fair. HEAD/NECK: Normocephalic. Atraumatic. EYES: EOMI. No deformity. EARS: Clear. No ulcers. NOSE: Intact. No lesions. MOUTH: Clear. No discharge. THROAT: Clear. No exudate. LUNGS: Clear. No crackles. CARDIAC: S1, S2. No rub. ABDOMEN: Benign. Bowel sounds positive. GENITALIA/RECTUM: Anton absent. BACK/EXTREMITIES: Edema 0+. NEUROLOGICAL: Alert and motor intact. SKIN: LYMPHATICS: LABORATORY DATA: Reviewed. ASSESSMENT AND PLAN: 1. Chronic kidney disease stage 4, stable. 2. Acute kidney injury due to acute tubular necrosis, due to polysubstance abuse, stable, no indication for dialysis. 3. Metabolic acidosis, stable. 4. Hypokalemia, recommend 20 mEq of potassium by mouth. No indication for dialysis. We will follow patient's renal function closely. Job ID: [id number]
--- NOTE | 2018-09-16 12:18 | PDOC.HOSPP ---
- Subjective Subjective: Patient seen and examined, no new issues or complaints. - Objective Vital Signs & Weight: Vital Signs (12 hours) Temp Pulse Resp BP Pulse Ox 09/16/18 09:01 96 09/16/18 07:31 95 09/16/18 07:30 98.5 F 96 18 171/94 H 94 L 09/16/18 04:00 97.7 F 97 20 133/76 96 Weight Weight 6.254 oz Most Recent Monitor Data Heart Rate from ECG 91 NIBP 145/106 NIBP BP-Mean 119 Respiration from ECG 30 SpO2 100 I&O: 09/15/18 09/16/18 09/17/18 06:59 06:59 06:59 Intake Total 2038 400 Output Total 1250 2200 Balance 788 -1800 Result Diagrams: 09/16/18 04:48 09/16/18 04:48 ROS - Review of Systems All systems: All other ROS were reviewed and found negative. - Medication Medications: Active Medications Generic Name Dose Route Start Last Admin Trade Name Freq PRN Reason Stop Dose Admin Acetaminophen 650 mg 09/13/18 19:27 09/14/18 04:42 Tylenol PO 650 mg Q4H PRN Administration Headache/Fever/Mild Pain (1-3) Carvedilol 25 mg 09/14/18 09:00 09/16/18 09:01 Coreg PO 25 mg BID SIRI Administration Sodium Chloride 1,000 mls @ 50 mls/hr 09/15/18 10:30 09/16/18 07:03 Normal Saline 0.9% IV 1,000 mls .Q20H SIRI Administration Isosorbide Mononitrate 30 mg 09/15/18 09:00 09/16/18 09:01 Imdur Er PO 30 mg DAILY SIRI Administration Nicotine 14 mg 09/14/18 18:30 09/15/18 17:40 Nicoderm Patch TOP 14 mg Q24HR SIRI Administration Nifedipine 60 mg 09/14/18 21:00 09/16/18 09:01 Procardia Xl PO 60 mg BID SIRI Administration Ondansetron HCl 4 mg 09/13/18 19:31 09/14/18 05:28 Zofran IVP 4 mg Q6H PRN Administration Nausea/Vomiting Sodium Chloride 10 ml 09/14/18 09:00 09/16/18 09:01 Flush - Normal Saline IVF 10 ml Q12HR SIRI Administration - Exam NAD, awake alert Eye: PERRL, anicteric sclera ENT: normocephalic atraumatic, no oropharyngeal lesions, moist mucosa Neck: supple, symmetric, no JVD, no Thyromegaly, no lymphadenopathy, no carotid bruit Heart: RRR, no murmur, no gallops, no rubs, normal peripheral pulses Respiratory: CTAB, no wheezes, no rales, no ronchi, normal chest expansion, no tachypnea, normal percussion Gastrointestinal: soft, non-tender, non-distended, normal bowel sounds, no palpable masses, no hepatomegaly, no splenomegaly, no bruit Extremities: no cyanosis, no clubbing, no edema Skin: normal turgor, no lesions, no rashes Hosp A/P (1) Hypertensive emergency Code(s): I16.1 - HYPERTENSIVE EMERGENCY Status: Acute (2) Tobacco abuse Code(s): Z72.0 - TOBACCO USE Status: Acute (3) Amphetamine abuse Code(s): F15.10 - OTHER STIMULANT ABUSE, UNCOMPLICATED Status: Chronic (4) ETOH abuse Code(s): F10.10 - ALCOHOL ABUSE, UNCOMPLICATED Status: Chronic - Plan - cont current plan of care - monitor till AM - if vitals stable in AM will DC patient - case and plan d/w patient at length, he understood and agreed with this plan.
[2018-09-16] MEDS ORDERED: Potassium Chloride 20 MEQ TAB PO SCH (19:00)
[2018-09-16] MEDS: Nicotine 14 MG PATCH TOP SCH (20:10)
[2018-09-17] MEDS: Ondansetron PF 4 MG/2 ML Vial IVP PRN (01:08)
[2018-09-17] MEDS: Acetaminophen 325 MG TAB PO PRN (01:08)
[2018-09-17] MEDS: Sodium Chloride 0.9% 1,000 ML IV SCH (03:34)
[2018-09-17 05:34] LABS: ALT (SGPT) 61 U/L (8-55); AST (SGOT) 46 U/L (5-34); Albumin 3.7 g/dL (3.5-5.0); Alkaline Phosphatase 145 U/L (40-150); Anion Gap 12 mmol/L (10-20); BUN (Urea Nitrogen) 60 mg/dL (8.9-20.6); Bilirubin, Total 0.4 mg/dL (0.2-1.2); Calc. Creatinine Clearance 0 mL/min (70-130); Calcium 9.2 mg/dL (7.8-10.44); Carbon Dioxide 22 mmol/L (22-29); Chloride 104 mmol/L (98-107); Estimated GFR-MDRD 17; Glucose 111 mg/dL (70-105); Potassium 3.4 mmol/L (3.5-5.1); Protein, Total 6.7 g/dL (6.0-8.3); Sodium 135 mmol/L (136-145)
[2018-09-17 06:27] LABS: Eosinophils 4 % (0-10); Hemoglobin 10.5 g/dL (14.0-18.0); Lymphocytes 17 % (21-51); MDiff Complete? YES; Mean Corpuscular HGB CONC 33.9 g/dL (32.0-36.0); Mean Corpuscular Hemoglobin 30.6 pg (27.0-31.0); Mean Corpuscular Volume 90.2 fL (78.0-98.0); Mean Platelet Volume 9.5 fL (7.4-10.4); Monocytes 8 % (0-10); Neutrophil 71 % (42-75); Platelet Count 136 thou/uL (130-400); Platelet Morphology Comment Appears Adequate; RBC Distribution Width 14.6 % (11.5-14.5); Red Blood Cell (RBC) Count 3.44 mill/uL (4.70-6.10); White Blood Cell (WBC) Count 6.9 thou/uL (4.8-10.8)
[2018-09-17] MEDS ORDERED: Potassium Chloride 20 MEQ TAB PO SCH (08:00)
--- NOTE | 2018-09-17 09:13 | PDOC.EVN ---
Event Note - Event Note Event Note: DC [facility] #[id number]
[2018-09-17] MEDS: Carvedilol 25 MG TAB PO SCH (09:45)
[2018-09-17] MEDS: NIFEdipine XL 60 MG TAB PO SCH (09:45)
--- NOTE | 2018-09-17 09:59 | DIS ---
DATE OF ADMISSION: 09/13/2018 DATE OF DISCHARGE: 09/17/2018 ADMITTING DIAGNOSES: Found down, altered mental status, hypertensive emergency, multidrug abuse, cerebral edema, history of chronic kidney disease stage 4, and hypertensive cardiac disease. DISCHARGE DIAGNOSES: Found down, altered mental status, hypertensive emergency, multidrug abuse, cerebral edema, history of chronic kidney disease stage 4, and hypertensive cardiac disease. HOSPITAL COURSE: A 47-year-old male, well known from prior admissions, who was found down having had taken multiple different types of drugs. The patient's urine drug screen was positive for amphetamines, methamphetamines, and cannabis. The patient was found to have an acute kidney injury as well as significant hypertensive urgency. The patient was stabilized throughout his course of admission stay here. He was advised to stop doing multiple different drugs. At time of discharge, creatinine was trending down to 3.8 . In the past, the patient has had creatinines of 4 to 5, so I think this is at his baseline range. No indication for dialysis was indicated. Hemodynamically, the patient was stable. Once again, the patient was advised to stop doing drugs. Follow up with PCP within 1 to 2 weeks for further management and care. DISPOSITION: Home. MEDICATIONS: See MAR. ACTIVITY: As tolerated with assistance as needed. DIET: Low-fat, low-calorie, and high-fiber diet. CONDITION: Stable. PROGNOSIS: Guarded. Once again, the patient was advised to stay compliant with his medications and follow up with his PCP. Case and plan discussed with the patient at length. He understood and agreed with this plan. Job ID: [id number]
--- NOTE | 2018-09-17 11:27 | PRG ---
DATE OF SERVICE: 09/17/2018 SUBJECTIVE: A 47-year-old gentleman, being seen for acute kidney injury. The patient denies any nausea, vomiting, or chest pain. OBJECTIVE: CONSTITUTIONAL: The patient is awake and alert. VITAL SIGNS: Afebrile. Pulse 85, breathing 16, blood pressure was 169/120. GENERAL APPEARANCE AND MENTAL STATUS: Fair. HEAD/NECK: Normocephalic. Atraumatic. EYES: EOMI. No deformity. EARS: Clear. No ulcers. NOSE: Intact. No lesions. MOUTH: Clear. No discharge. THROAT: Clear. No exudate. LUNGS: Clear. No crackles. CARDIAC: S1, S2. No rub. ABDOMEN: Benign. Bowel sounds positive. GENITALIA/RECTUM: Anton absent. BACK/EXTREMITIES: Edema 0+. NEUROLOGICAL: Alert and motor intact. SKIN: LYMPHATICS: ASSESSMENT AND RECOMMENDATION: 1. Stage 4 chronic kidney disease, stable. 2. Acute kidney injury due to acute tubular necrosis, stable. 3. Hypertension, stable. 4. Anemia, stable. 5. Medication based on GFR, appropriate. No indication for dialysis. Job ID: [id number]
[2018-09-17 20:29] VITALS: BP 168/74; TEMP 98.4
== END 2018-09-17 11:15 | disposition home or self-care (01) | DRG 304 ==
LOC: ERS 14:05 → CCU 21:07 → 2NO 09-14 21:30
PROVIDERS: ADMIT Internal Medicine; ATTEND Internal Medicine
DX: I16.1 Hypertensive emergency (principal); G93.6 Cerebral edema; I67.83 Posterior reversible encephalopathy syndrome; N17.0 Acute kidney failure with tubular necrosis; N18.4 Chronic kidney disease, stage 4 (severe); E87.1 Hypo-osmolality and hyponatremia; E87.2 Acidosis; F19.10 Other psychoactive substance abuse, uncomplicated; F15.10 Other stimulant abuse, uncomplicated; F14.10 Cocaine abuse, uncomplicated; I25.10 Atherosclerotic heart disease of native coronary artery without angina pectoris; I13.0 Hypertensive heart and chronic kidney disease with heart failure and stage 1 through stage 4 chronic kidney disease, or unspecified chronic kidney disease; I50.9 Heart failure, unspecified; F12.10 Cannabis abuse, uncomplicated; W18.30XA Fall on same level, unspecified, initial encounter; D63.1 Anemia in chronic kidney disease; E87.6 Hypokalemia; B19.20 Unspecified viral hepatitis C without hepatic coma; F10.10 Alcohol abuse, uncomplicated; I25.2 Old myocardial infarction; Z91.14 Patient's other noncompliance with medication regimen; Z86.73 Personal history of transient ischemic attack (TIA), and cerebral infarction without residual deficits
CPT/HCPCS: 36415; 70450; 71045; 76770; 80048; 80053; 80069; 80306; 80307; 83880; 84484; 85007; 85025; 85027; 85610; 85730; 93005; 96365; 96366; 96375; 96376; J0360; J2405; J7050

== ENCOUNTER 2019-04-15 18:10 | Emergency (ER) | payer SELFPAY ==
[2019-04-15] MEDS ORDERED: Midazolam HCl 2 mg/2 ml Vial ONE ×3 (18:14→21:02)
--- NOTE | 2019-04-15 18:34 | CT ---
EXAM: CT Brain WO Con PROVIDED CLINICAL HISTORY: Aphasia, Hypertensive COMPARISON: 09/14/2018 FINDINGS: The ventricular system is nondilated. There is no shift of the midline structures. There is no eviden ce for intracranial hemorrhage. There is extensive abnormal hypodensity within the cerebral and cerebellar white matter, predominating centrally. There is loss of gibson-white differentiation involvi ng the basal ganglia. There is effacement of the basilar cisterns. There is paucity of cerebral sulci. These findings are similar to the prior examination. The extracranial soft tissues and osseous structures demonstrate no acute abnormality. IMPRESSION: Evidence for cerebral edema and extensive abnormal low density within the central cerebral and cerebe llar white matter and basal ganglia, presumably reflecting hypertensive encephalopathy and appearing similar to prior examinations. No evidence for intracranial hemorrhage. Findings communicat ed to Dr. Alex 6:29 PM 04/15/2019.
[2019-04-15] MEDS ORDERED: Ondansetron PF 4 MG/2 ML Vial ONE (18:35)
[2019-04-15 18:48] LABS: #Eosinphils 0.2 thou/uL (0.0-0.7); #Lymphocytes 0.9 thou/uL (1.20-3.40); #Monocytes 0.5 thou/uL (0.11-0.59); #Neutrophils 9.8 thou/uL (1.40-6.50); %Basophils 0.4 % (0.0-1.0); %Eosinophils 1.6 % (0.0-10.0); %Lymphocytes 7.7 % (21.0-51.0); %Monocytes 4.1 % (0.0-10.0); %Neutrophils 86.1 % (42.0-75.0); Hemoglobin 15.6 g/dL (14.0-18.0); Mean Corpuscular Hemoglobin 30.2 pg (27.0-31.0); Mean Corpuscular Volume 91.4 fL (78.0-98.0); Red Blood Cell (RBC) Count 5.17 mill/uL (4.70-6.10); White Blood Cell (WBC) Count 11.3 thou/uL (4.8-10.8)
[2019-04-15 18:55] LABS: INR-International Normal Ratio 0.9; PTT 26.2 SEC (22.9-36.1); Prothrombin Time 11.7 SEC (12.0-14.7)
[2019-04-15 19:06] LABS: MDiff Complete? YES; Mean Platelet Volume 10.4 fL (7.4-10.4); Platelet Count 86 thou/uL (130-400); Platelet Morphology Comment Appears Decreased; Polychromasia SLIGHT = 2-3 cells (100X) (0-2/hpf)
--- NOTE | 2019-04-15 19:06 | RAD ---
EXAM: Portable chest PROVIDED CLINICAL HISTORY: Altered mental status COMPARISON: 09/13/2018 FINDINGS: Cardiac and mediastinal silhouette is within normal limits. No focal consolidation, pleural fluid or pneumothorax evident. IMPRESSION: No evidence for an acute cardiopulmonary process.
[2019-04-15 19:08] LABS: Acetaminophen Less than 6.0 mcg/mL (10.0-30.0); Alcohol Less than 10 mg/dL (Less than 10); CK (CPK) 143 U/L (30-200); Magnesium 1.9 mg/dL (1.6-2.6); Salicylate Less than 8.0 mg/dL (15.0-30.0)
[2019-04-15 19:11] LABS: ALT (SGPT) 59 U/L (8-55); AST (SGOT) 41 U/L (5-34); Albumin 4.1 g/dL (3.5-5.0); Alkaline Phosphatase 163 U/L (40-110); Anion Gap 19 mmol/L (10-20); BUN (Urea Nitrogen) 38 mg/dL (8.9-20.6); Bilirubin, Total 1.6 mg/dL (0.2-1.2); Calc. Creatinine Clearance 0 mL/min (70-130); Calcium 9.4 mg/dL (7.8-10.44); Carbon Dioxide 17 mmol/L (22-29); Chloride 111 mmol/L (98-107); Estimated GFR-MDRD 22; Glucose 113 mg/dL (70-105); Potassium 4.7 mmol/L (3.5-5.1); Protein, Total 7.1 g/dL (6.0-8.3); Sodium 142 mmol/L (136-145)
[2019-04-15 19:14] LABS: Bacteria/HPF None Seen HPF (None Seen); Bilirubin Negative (Negative); Blood, Urine 2+ (Negative); Clarity Clear (Clear); Glucose, Urine (Dipstick) Normal (Negative); Leukocyte Negative Leu/uL (Negative); Nitrite Negative (Negative); Protein, Urine (Dipstick) 200 mg/dL (Neg-Trace); RBC/HPF Greater than 50 HPF (0-3); Squamous Epithelial None Seen HPF (0-3); Urobilinogen Normal mg/dL (Less than 2); WBC/HPF 0-3 HPF (0-3)
[2019-04-15 19:23] LABS: Cocaine Metabolite Screen Not Detected (NotDetected); Medtox Reader # READER 4; Phencyclidine (PCP) Not Detected (NotDetected); THC/Cannabinoid Screen Detected (NotDetected)
[2019-04-15 19:24] LABS: Amphetamine Detected (NotDetected); Barbiturates Screen Not Detected (NotDetected); Benzodiazepine Screen Not Detected (NotDetected); Medtox Control Line Valid? VALID (VALID); Methadone Not Detected (NotDetected); Methamphetamine Detected (NotDetected); Opiate Screen Not Detected (NotDetected); Oxycodone Screen Not Detected (NotDetected); Tricyclic Screen Not Detected (NotDetected)
[2019-04-15 19:30] LABS: CKMB 5.3 ng/mL (0-6.6)
[2019-04-15] MEDS ORDERED: niCARdipine 20MG In NaCl 20 MG/200 ML BAG ONE (19:38)
[2019-04-15] MEDS ORDERED: Enoxaparin Sodium 100 MG/ML SYRINGE ONE (22:26)
[2019-04-16] MEDS ORDERED: EPINEPHrine 1 MG/10 ML Abboject SYRINGE ONE (04:10)
--- NOTE | 2019-04-21 15:21 | EKG ---
Test Reason : STROKE Blood Pressure : / mmHG Vent. Rate : 093 BPM Atrial Rate : 093 BPM P-R Int : 124 ms QRS Dur : 088 ms QT Int : 396 ms P-R-T Axes : 066 070 083 degrees QTc Int : 492 ms Normal sinus rhythm Possible Left atrial enlargement Prolonged QT Abnormal ECG Confirmed by CHUCK BIRCH ([id number]), assistant film editor KHUSHBOO ALVES ([id number]) on 04/21/2019 3:21:18 PM Referred By: Confirmed By:CHUCK BIRCH
== END 2019-04-15 21:56 | disposition short-term general hospital (02) ==
LOC: ERS 18:10
DX: F12.10 Cannabis abuse, uncomplicated (principal); F15.10 Other stimulant abuse, uncomplicated; I67.4 Hypertensive encephalopathy; I67.83 Posterior reversible encephalopathy syndrome; R41.82 Altered mental status, unspecified; R47.01 Aphasia; Z86.73 Personal history of transient ischemic attack (TIA), and cerebral infarction without residual deficits; F17.210 Nicotine dependence, cigarettes, uncomplicated
CPT/HCPCS: 36415; 36416; 51702; 70450; 71045; 80053; 80306; 80307; 81003; 81015; 82550; 82553; 83735; 84484; 85025; 85610; 85730; 93005; 96365; 96366; 96374; 96375; 96376; J1650; J2250; J2405; J2997

== ENCOUNTER 2019-04-29 23:26 | Inpatient (IN) | payer SELFPAY ==
[2019-04-29] MEDS ORDERED: hydrALAZINE 20 MG/ML VIAL ONE (23:45)
[2019-04-29 23:51] LABS: #Eosinphils 0.3 thou/uL (0.0-0.7); #Lymphocytes 0.7 thou/uL (1.20-3.40); #Monocytes 0.4 thou/uL (0.11-0.59); #Neutrophils 4.2 thou/uL (1.40-6.50); %Basophils 0.8 % (0.0-1.0); %Eosinophils 4.8 % (0.0-10.0); %Lymphocytes 12.9 % (21.0-51.0); %Monocytes 6.5 % (0.0-10.0); %Neutrophils 75.1 % (42.0-75.0); Hemoglobin 10.2 g/dL (14.0-18.0); Mean Corpuscular Hemoglobin 31.2 pg (27.0-31.0); Mean Corpuscular Volume 91.6 fL (78.0-98.0); Mean Platelet Volume 7.7 fL (7.4-10.4); Platelet Count 160 thou/uL (130-400); RBC Distribution Width 14.1 % (11.5-14.5); Red Blood Cell (RBC) Count 3.28 mill/uL (4.70-6.10); White Blood Cell (WBC) Count 5.6 thou/uL (4.8-10.8)
--- NOTE | 2019-04-30 00:05 | CT ---
Head CT without contrast 04/30/2019: COMPARISON: 04/15/2019 and prior HISTORY: Headache TECHNIQUE: Axial CT imaging at 5 mm intervals from vertex through skull base without contrast FINDINGS: The imaged paranasal sinuses and mastoid air cells are well aerated. No displaced calvarial fracture. No intracranial hemorrhage, midline shift, or mass effect. There is extensive abnormal periventricular, deep, and subcortical white matter hypodensity, as seen on the prior exam. There is also abnormal hypodensity within the brain stem and the central aspect of bilateral cerebellar hemispheres, stable as well. Of note, this distribution of abnormal hypodensi ty appears grossly unchanged when compared to head CTs dating back to 08/01/2017. IMPRESSION: There is nonspecific hypodensity within the brain stem, bilateral cerebellar hemispheres, and involving the periventricular, deep, and subcortical white matter. These findings are similar when compared to numerous prior exams. No intracranial hemorrhage. If further imaging is clinically w arranted, follow-up brain MRI suggested.
[2019-04-30 00:12] LABS: ALT (SGPT) 58 U/L (8-55); AST (SGOT) 57 U/L (5-34); Albumin 3.2 g/dL (3.5-5.0); Alcohol Less than 10 mg/dL (Less than 10); Alkaline Phosphatase 159 U/L (40-110); Anion Gap 14 mmol/L (10-20); BUN (Urea Nitrogen) 40 mg/dL (8.9-20.6); Bilirubin, Total 0.4 mg/dL (0.2-1.2); Calc. Creatinine Clearance 0 mL/min (70-130); Calcium 8.3 mg/dL (7.8-10.44); Carbon Dioxide 20 mmol/L (22-29); Chloride 106 mmol/L (98-107); Estimated GFR-MDRD 22; Globulin 2.8 g/dL (2.4-3.5); Glucose 102 mg/dL (70-105); Potassium 3.9 mmol/L (3.5-5.1); Sodium 136 mmol/L (136-145)
[2019-04-30 00:34] LABS: CKMB 6.4 ng/mL (0-6.6)
[2019-04-30] MEDS ORDERED: Furosemide 40 MG/4 ML VIAL ONE (00:59)
[2019-04-30 01:29] LABS: Amphetamine Detected (NotDetected); Barbiturates Screen Not Detected (NotDetected); Benzodiazepine Screen Detected (NotDetected); Cocaine Metabolite Screen Not Detected (NotDetected); Medtox Control Line Valid? VALID (VALID); Medtox Reader # READER 4; Methadone Not Detected (NotDetected); Methamphetamine Detected (NotDetected); Opiate Screen Not Detected (NotDetected); Oxycodone Screen Not Detected (NotDetected); Phencyclidine (PCP) Not Detected (NotDetected); THC/Cannabinoid Screen Detected (NotDetected); Tricyclic Screen Not Detected (NotDetected)
[2019-04-30] MEDS ORDERED: Lorazepam 2 MG/ML VIAL SLOW IVP PRN ×2 (02:16→13:22)
[2019-04-30] MEDS ORDERED: Carvedilol 25 MG TAB PO SCH ×2 (02:30→17:00)
[2019-04-30] MEDS ORDERED: Meperidine HCl/PF 25 MG/ML VIAL SLOW IVP PRN (02:32)
[2019-04-30] MEDS ORDERED: Sodium Chloride 0.9% 1,000 ML IV SCH (02:45)
[2019-04-30 03:38] VITALS: BMI 21.5
[2019-04-30 03:52] LABS: Troponin I 0.079 ng/mL (< 0.028)
--- NOTE | 2019-04-30 04:42 | HP ---
CHIEF COMPLAINT: Headache. HISTORY OF PRESENT ILLNESS: Mr. Chun is a 48-year-old male with past medical history of hypertension, substance abuse, coronary artery disease, TIA, hepatitis C, among others, presents to the emergency room with headache. The patient reports gradually worsening headache for the last 4 days associated with chest tightness. The patient has a history of hypertension. Has a history of kidney failure. The patient admits to using methamphetamine, last use was 2 days ago. Urine drug screen came back positive for amphetamine, benzodiazepine, and THC. Blood pressure was as high as 260/150. The patient is being admitted to hospital for further management. PAST MEDICAL HISTORY: As mentioned above in the history of present illness. PAST SURGICAL HISTORY: None reported. PAST PSYCHIATRIC HISTORY: Anxiety. SOCIAL HISTORY: The patient currently uses drugs, abuses IV methamphetamines, currently uses tobacco, smokes cigarettes. FAMILY HISTORY: Reviewed and noncontributory. HOME MEDICATIONS: Please see home medication reconciliation form for updated medications. REVIEW OF SYSTEMS: The patient is a poor historian, but review of 14 systems is negative except what is mentioned in the history of present illness. PHYSICAL EXAMINATION: GENERAL: The patient is anxious, having tremors. VITAL SIGNS: 250/164, latest blood pressure 228/150; respiratory rate is 18; temperature is 98.6; oxygen saturation is 99% on room air. HEAD AND NECK: Normocephalic, atraumatic. Neck is supple. No JVD. CHEST: Fair bilateral air entry. HEART: S1, S2. Regular. ABDOMEN: Soft, nontender. Bowel sounds present. NEUROLOGIC: Awake, alert, anxious and tremulous. PSYCH: Anxious. EXTREMITIES: No clubbing, no cyanosis. LABORATORY DATA: Urine drug screen as mentioned above in history of present illness. Troponin 0.09. BNP is 1732. Electrolytes; BUN is 40, creatinine 3.1. CT of the brain; nonspecific hypodensity within the brainstem, bilateral cerebellar hemispheres and involving the periventricular, deep, subcortical white matter. These are similar when compared to numerous prior studies. No intracranial hemorrhage. ASSESSMENT: 1. Hypertensive emergency. 2. Substance abuse, methamphetamine abuse. 3. Chronic kidney disease, stage 3/4. 4. Coronary artery disease. 5. Detectable troponin. PLAN: 1. We will admit to [facility]. 2. We will start the patient on IV Cardene drip, titrate for a blood pressure of 190/110 in the first 12 hours, reassess in a.m. 3. Serial troponins. 4. Monitor kidney function and urine output. 5. We will use benzodiazepine as needed for agitation, anxiety, and restlessness. 6. Reconcile home medications. 7. DVT prophylaxis as appropriate. 8. Expected length of stay, 2 midnights or more. Job ID: [id number]
[2019-04-30] MEDS: niCARdipine 25 MG in Sodium Chloride 0.9% 250 ML 250 ML IVPB SCH ×2 (07:17→10:39)
[2019-04-30 07:21] LABS: Troponin I 0.082 ng/mL (< 0.028)
--- NOTE | 2019-04-30 07:42 | RAD ---
CHEST 1 VIEW: INDICATION: Hypertension and headache for 4 days. COMPARISON: Prior exam dated 04/15/2019. FINDINGS: No consolidation, pleural effusion, or pneumothorax is evident. Heart size is normal-appearing. Oss eous structures reveal no acute abnormality. IMPRESSION: No acute cardiopulmonary abnormality. POS: BH
--- NOTE | 2019-04-30 08:25 | CON ---
DATE OF CONSULTATION: 04/30/2019 REASON FOR CONSULTATION: Hypertensive emergency. HISTORY OF PRESENT ILLNESS: This is a 48-year-old who has a history of malignant hypertension and is noncompliant with his medications. He presented with elevated blood pressure, headache, and a urine test positive for methamphetamines. He has been placed on nicardipine drip. Currently, he has no complaints of chest pain or shortness of breath. PAST MEDICAL HISTORY: 1. Malignant hypertension. 2. Chronic hepatitis C. 3. Huv-YA-tyuzpwn elevation myocardial infarction. 4. Chronic kidney disease. 5. Left ventricular hypertrophy with diastolic dysfunction. PAST SURGICAL HISTORY: None. SOCIAL HISTORY: One pack per day smoker. Uses methamphetamine. FAMILY HISTORY: Unremarkable. ALLERGIES: NONE. MEDICATIONS: Prior to admission; atorvastatin, hydralazine, carvedilol, and nifedipine - not using any. REVIEW OF SYSTEMS: Otherwise, negative. PHYSICAL EXAMINATION: VITAL SIGNS: Temperature 97.9, pulse 98, blood pressure 179/109, and O2 saturation 100%. Currently on nicardipine drip 7.5 mg/hour. HEENT: Unremarkable. NECK: No adenopathy or JVD. LUNGS: Clear. CARDIAC: S1 and S2. Regular. ABDOMEN: Soft and nontender. EXTREMITIES: No edema. LABORATORY DATA: White blood cell count 5.6, hematocrit 30, and platelet count 160. Sodium 136, potassium 3.9, chloride 106, CO2 of 20, BUN 40, creatinine 3.3, and glucose 102. Troponin 0.082. Drug test positive for amphetamines, methamphetamines, benzodiazepines, and cannabinoids. IMAGING DATA: Brain CT, no intracranial hemorrhage. Chest x-ray, cardiomegaly. No mass, effusion, or infiltrate. ASSESSMENT: 1. Hypertensive emergency, medication noncompliance. 2. Illicit drug use. 3. Chronic kidney disease. 4. Cxy-KY-uskcbas elevation myocardial infarction. PLAN: 1. Continue nicardipine drip. 2. Restart antihypertensive medications after 48 hours. 3. Okay to go ahead and eat. Job ID: [id number]
[2019-04-30] MEDS: Famotidine 20 MG TAB PO SCH (08:26)
[2019-04-30] MEDS ORDERED: FLU VACC QS2019-20(6MOS UP)/PF 60 MCG/0.5 ML SYRINGE IM ONE (09:00)
[2019-04-30] MEDS ORDERED: Enoxaparin Sodium 40 MG/0.4 ML SYRINGE SC SCH (09:00)
[2019-04-30] MEDS ORDERED: Acetaminophen 325 MG TAB PO PRN (09:00)
[2019-04-30] MEDS ORDERED: Sodium Chloride 0.9% 500 ML IV SCH (10:45)
[2019-04-30 11:07] LABS: Anion Gap 15 mmol/L (10-20); BUN (Urea Nitrogen) 38 mg/dL (8.9-20.6); Calc. Creatinine Clearance 30 mL/min (70-130); Calcium 8.9 mg/dL (7.8-10.44); Carbon Dioxide 19 mmol/L (22-29); Chloride 105 mmol/L (98-107); Estimated GFR-MDRD 21; Glucose 218 mg/dL (70-105); Magnesium 2.2 mg/dL (1.6-2.6); Phosphorus 2.8 mg/dL (2.3-4.7); Potassium 3.7 mmol/L (3.5-5.1); Sodium 135 mmol/L (136-145)
[2019-04-30] MEDS ORDERED: Lorazepam 0.5 MG TAB PO PRN (13:22)
[2019-04-30] MEDS ORDERED: Loratadine 10 MG TAB PO PRN (13:22)
[2019-04-30] MEDS: niCARdipine 50 MG in Sodium Chloride 0.9% 250 ML 230 ML IVPB SCH ×3 (13:58→22:37)
[2019-04-30] MEDS ORDERED: Potassium Chloride 20 MEQ TAB PO SCH (14:00)
--- NOTE | 2019-04-30 19:13 | CON ---
DATE OF CONSULTATION: 04/30/2019 CONSULTING PHYSICIAN: Yovany Glover MD REASON FOR CONSULTATION: Hypertension and acute kidney injury. REASON FOR ADMISSION: Headaches. HISTORY OF PRESENT ILLNESS: This is a 48-year-old male with history of hypertension and substance abuse, came to the hospital with headache and was found to have hypertensive emergency. No fever or chills. No nausea or vomiting. His drug screen remains positive for amphetamines and benzodiazepine. PAST MEDICAL HISTORY: Positive for hypertension, substance abuse, coronary artery disease, TIA, and hepatitis C. PAST SURGICAL HISTORY: None. HOME MEDICATIONS: Reviewed. ALLERGIES: NO KNOWN DRUG ALLERGIES. SOCIAL HISTORY: History of substance abuse and smokes cigarettes. FAMILY HISTORY: No history of kidney disease. REVIEW OF SYSTEMS: The following complete review of systems was negative, unless otherwise mentioned in the HPI or below: CONSTITUTIONAL: Weight loss or gain, ability to conduct usual activities. SKIN: Rash, itching. EYES: Double vision, pain. ENT/MOUTH: Nose bleeding, neck stiffness, pain, tenderness. CARDIOVASCULAR: Palpitations, dyspnea on exertion, orthopnea. RESPIRATORY: Shortness of breath, wheezing, cough, hemoptysis, fever or night sweats. GASTROINTESTINAL: Poor appetite, abdominal pain, heartburn, nausea, vomiting, constipation, or diarrhea. GENITOURINARY: Urgency, frequency, dysuria, nocturia. MUSCULOSKELETAL: Pain, swelling. NEUROLOGIC/PSYCHIATRIC: Anxiety, depression. ALLERGY/IMMUNOLOGIC: Skin rash, bleeding tendency. PHYSICAL EXAMINATION: GENERAL: This is a well-built male, in no apparent distress. VITAL SIGNS: Temperature 98.5, pulse 92, respiratory rate 18, blood pressure 143/82. HEENT: Atraumatic and normocephalic. Oral mucosa is moist. NECK: Supple. CV: S1 and S2 heard. Rate and rhythm are regular. RESPIRATORY: Clear. GASTROINTESTINAL: Abdomen is soft. MUSCULOSKELETAL: 1+ edema. DERMATOLOGIC: No skin rash. NEUROLOGIC: Alert and awake. PSYCHIATRIC: Normal mood and affect. LABORATORY DATA: Creatinine is 3.26. Hemoglobin is 10.2. ASSESSMENT AND PLAN: 1. Acute kidney injury on chronic kidney disease, stage 4, stable. We will monitor. 2. Hyponatremia. 3. Acidosis. 4. Substance abuse. 5. Hypertension. 6. Hypoalbuminemia. 7. Anemia. Closely titrate the medications to bring the blood pressure to 140 to 160 over 24 to 48 hours and then start the home medications. Closely monitor. We will follow up. Job ID: [id number]
[2019-05-01] MEDS: niCARdipine 50 MG in Sodium Chloride 0.9% 250 ML 230 ML IVPB SCH ×2 (03:19→08:30)
[2019-05-01 04:02] LABS: Anion Gap 14 mmol/L (10-20); BUN (Urea Nitrogen) 41 mg/dL (8.9-20.6); Calc. Creatinine Clearance 28 mL/min (70-130); Calcium 8.3 mg/dL (7.8-10.44); Carbon Dioxide 20 mmol/L (22-29); Chloride 106 mmol/L (98-107); Estimated GFR-MDRD 19; Glucose 118 mg/dL (70-105); Potassium 4.3 mmol/L (3.5-5.1); Sodium 136 mmol/L (136-145)
--- NOTE | 2019-05-01 07:58 | PRG ---
DATE OF SERVICE: 05/01/2019 SUBJECTIVE: The patient is doing well. Still on a nicardipine drip at 12 mg/hour. Has not started his oral antihypertensives yet. OBJECTIVE: VITAL SIGNS: On exam, temperature is 98.5, pulse 97, blood pressure 143/75, and O2 saturation 100%. HEENT: Clear. NECK: No adenopathy or JVD. LUNGS: Clear. CARDIAC: S1 and S2. Regular. ABDOMEN: Soft. EXTREMITIES: No edema. LABORATORY DATA: BUN 41, creatinine 3.5, sodium 136, potassium 4.3, chloride 106, and CO2 of 20. ASSESSMENT: 1. Malignant hypertension. 2. Hypertensive nephropathy. 3. Illicit drug use. 4. Hpd-CM-cpctzvb elevation myocardial infarction. PLAN: Restart oral antihypertensives and wean off nicardipine drip. Once off nicardipine drip, can transfer to the floor. Job ID: [id number]
[2019-05-01] MEDS: hydrALAZINE 25 MG TAB PO SCH ×4 (08:00→20:02)
[2019-05-01] MEDS: Famotidine 20 MG TAB PO SCH (08:00)
[2019-05-01] MEDS: Atorvastatin Calcium 40 MG TAB PO SCH (08:00)
[2019-05-01] MEDS: NIFEdipine XL 60 MG TAB PO SCH (08:00)
[2019-05-01] MEDS: Carvedilol 25 MG TAB PO SCH ×2 (08:00→16:57)
[2019-05-01] MEDS: Enoxaparin Sodium 30 MG/0.3 ML SYRINGE SC SCH (08:00)
--- NOTE | 2019-05-01 13:15 | PRG ---
DATE OF SERVICE: 05/01/2019 SUBJECTIVE: Patient was seen and examined at bedside and overnight events noted. Patient denies any shortness of breath or chest pain or palpitation. No history of nausea or vomiting or diarrhea or fever or chills or cramps. OBJECTIVE: General: This is well-built male, in no apparent distress. VITAL SIGNS: Temperature 98.7, heart rate 79, respiratory rate 18, and blood pressure 148/93. HEENT: Atraumatic, normocephalic. Oral mucosa is moist. Neck: Supple. Cardiovascular: S1, S2 heard. Rate and rhythm regular. Respiratory: Clear to auscultation. Gastrointestinal: Abdomen is soft. Musculoskeletal: No tenderness. No edema. Dermatologic: No skin rash. Neurologic: Alert and awake and oriented x3. No focal neurologic deficits. Moving all the extremities. Psychiatric: Mood and affect normal. LABORATORY DATA: Potassium 4.3, BUN is 41, and creatinine is 3.5. ASSESSMENT AND PLAN: 1. Acute kidney injury on chronic kidney disease, stage 4, stable. 2. Chronic acidosis. 3. Hyponatremia. 4. Substance abuse. 5. Hypertension. Plan is to be wean off the drip and start on oral medication. 6. Hypoalbuminemia. 7. Anemia of chronic disease. 8. The patient was counseled again, no acute indication for dialysis. We will continue to monitor. Agree with blood pressure control. Job ID: [id number]
--- NOTE | 2019-05-01 19:16 | PDOC.HOSPP ---
- Subjective Encounter Date: 05/01/19 Encounter Time: 14:30 Subjective: Patient seen and examined for HTN crisis. Off Cardene drip. No CP/SOB. No new complaints. No overnight events - Objective Vital Signs & Weight: Vital Signs (12 hours) Temp Pulse BP Pulse Ox 05/01/19 16:57 89 137/92 H 05/01/19 16:00 98.6 F 05/01/19 12:38 80 143/92 H 05/01/19 12:00 98.7 F 05/01/19 08:00 98.6 F 93 159/94 H 100 05/01/19 07:17 100 Weight Admit Weight 163 lb 9.328 oz Weight 163 lb 9.328 oz Most Recent Monitor Data Heart Rate from ECG 84 NIBP 134/82 NIBP BP-Mean 99 Respiration from ECG 15 SpO2 100 I&O: 04/30/19 05/01/19 05/02/19 06:59 06:59 06:59 Intake Total 232 3489 280 Output Total 1025 1705 850 Balance -793 1784 -570 Result Diagrams: 04/29/19 23:41 05/01/19 03:25 Radiology Reviewed by me: Yes (CXR - neg) EKG Reviewed by me: Yes (Tele SR) Hospitalist ROS - Review of Systems Respiratory: denies: cough, dry, shortness of breath, hemoptysis, SOB with excertion, pleuritic pain, sputum, wheezing, other Cardiovascular: denies: chest pain, palpitations, orthopnea, paroxysmal noc. dyspnea, edema, light headedness, other - Medication Medications: Active Medications Generic Name Dose Route Start Last Admin Trade Name Jayyq PRN Reason Stop Dose Admin Atorvastatin Calcium 40 mg 05/01/19 09:00 05/01/19 08:00 Lipitor PO 40 mg DAILY SIRI Administration Carvedilol 25 mg 05/01/19 08:00 05/01/19 16:57 Coreg PO 25 mg BID-WM SIRI Administration Enoxaparin Sodium 30 mg 05/01/19 09:00 05/01/19 08:00 Lovenox SC 30 mg 0900 SIRI Administration Famotidine 20 mg 04/30/19 09:00 05/01/19 08:00 Pepcid PO 20 mg Q24HR SIRI Administration Hydralazine HCl 25 mg 05/01/19 09:00 05/01/19 16:57 Apresoline PO 25 mg QID SIRI Administration Nifedipine 60 mg 05/01/19 09:00 05/01/19 08:00 Procardia Xl PO 60 mg DAILY SIRI Administration Sodium Chloride 10 ml 04/30/19 09:00 05/01/19 08:01 Flush - Normal Saline IVF 10 ml Q12HR SIRI Administration - Exam General Appearance: NAD Neck: supple, no JVD Heart: RRR, no gallops, no rubs, normal peripheral pulses Respiratory: CTAB, no rales, no ronchi, normal chest expansion Gastrointestinal: non-tender, non-distended, normal bowel sounds, no guarding, no rigidity Extremities: no cyanosis, no clubbing Neurological: no new deficit Psychiatric: normal affect, A&O x 3 Hosp A/P - Plan DVT proph w/SCDs HTN emergency requiring Cardene drip WILDER on CKD 4/Metabolic acidosis Polysubstance abuse Anemia of chronic disease HTN heart disease HLD Elevated troponin due to uncontrolled HTN. ? type 2 [place] Headache - resolved PLAN: Home meds restarted Cont Coreg/Procardia XL Cont Statins Pt is out of home meds - Will consult CM for med assist
[2019-05-01] MEDS: Nicotine 14 MG PATCH TD SCH (20:02)
[2019-05-02] MEDS: Ondansetron PF 4 MG/2 ML Vial IVP PRN ×2 (00:17→16:14)
[2019-05-02 03:58] LABS: #Eosinphils 0.2 thou/uL (0.0-0.7); #Lymphocytes 0.8 thou/uL (1.20-3.40); #Monocytes 0.5 thou/uL (0.11-0.59); #Neutrophils 7.5 thou/uL (1.40-6.50); %Basophils 0.1 % (0.0-1.0); %Eosinophils 2.1 % (0.0-10.0); %Lymphocytes 9.1 % (21.0-51.0); %Neutrophils 83.7 % (42.0-75.0); Hemoglobin 10.7 g/dL (14.0-18.0); Mean Corpuscular HGB CONC 33.8 g/dL (32.0-36.0); Mean Corpuscular Volume 91.9 fL (78.0-98.0); Mean Platelet Volume 8.9 fL (7.4-10.4); Platelet Count 211 thou/uL (130-400); RBC Distribution Width 14.2 % (11.5-14.5); Red Blood Cell (RBC) Count 3.46 mill/uL (4.70-6.10); White Blood Cell (WBC) Count 8.9 thou/uL (4.8-10.8)
[2019-05-02 04:20] LABS: Anion Gap 14 mmol/L (10-20); BUN (Urea Nitrogen) 45 mg/dL (8.9-20.6); Calc. Creatinine Clearance 27 mL/min (70-130); Calcium 8.8 mg/dL (7.8-10.44); Carbon Dioxide 21 mmol/L (22-29); Chloride 103 mmol/L (98-107); Estimated GFR-MDRD 18; Glucose 111 mg/dL (70-105); Potassium 4.4 mmol/L (3.5-5.1); Sodium 134 mmol/L (136-145)
--- NOTE | 2019-05-02 08:07 | RAD ---
AP CHEST: Date: 05/02/2019 HISTORY: Shortness of breath. COMPARISON: 04/29/2018. FINDINGS: Heart size is borderline. There are some right lower lobe infiltrative lung changes which are develop ing, also slightly increased right parahilar markings. IMPRESSION: 1. Borderline heart size. 2. Developing right lower lobe infiltrate, and also perhaps some minimal changes in the right upper lobe. POS: KEL
[2019-05-02] MEDS: Atorvastatin Calcium 40 MG TAB PO SCH (08:10)
[2019-05-02] MEDS: Carvedilol 25 MG TAB PO SCH ×2 (08:10→16:15)
[2019-05-02] MEDS: hydrALAZINE 25 MG TAB PO SCH ×4 (08:10→21:06)
[2019-05-02] MEDS: Enoxaparin Sodium 30 MG/0.3 ML SYRINGE SC SCH (08:10)
[2019-05-02] MEDS: NIFEdipine XL 60 MG TAB PO SCH (08:10)
[2019-05-02] MEDS: Famotidine 20 MG TAB PO SCH (08:12)
[2019-05-02] MEDS ORDERED: Furosemide 40 MG/4 ML VIAL SLOW IVP SCH (08:30)
--- NOTE | 2019-05-02 08:31 | PRG ---
DATE OF SERVICE: 05/02/2019 SUBJECTIVE: He had an episode of shortness of breath last night. He was placed on oxygen and an x-ray was obtained, symptoms have resolved and he is now back to his baseline. He was weaned off the nicardipine drip last evening. Chest x-ray showed some evidence of pulmonary edema. OBJECTIVE: HEENT: Unremarkable. NECK: No adenopathy or JVD. LUNGS: Clear anteriorly. CARDIAC: S1 and S2. Regular. ABDOMEN: Soft. EXTREMITIES: No edema. LABORATORY DATA: White blood cell count 8.9, hematocrit 31.9, and platelet count 211. Sodium 134, potassium 4.4, chloride 103, CO2 of 21, BUN 45, creatinine 3.5, and glucose 111. ASSESSMENT: Suspected pulmonary edema. PLAN: I would go ahead and give him one dose of Lasix. Can proceed with transfer to floor. Job ID: [id number]
--- NOTE | 2019-05-02 17:15 | PRG ---
DATE OF SERVICE: 05/02/2019 SUBJECTIVE: Patient was seen and examined at bedside and overnight events noted. Patient denies any shortness of breath or chest pain or palpitation. No history of nausea or vomiting or diarrhea or fever or chills or cramps. OBJECTIVE: General: This is well-built male, in no apparent distress. Vital Signs: Temperature 98.4. Heart Rate 89. Respiratory rate 20. Blood pressure 140/97. HEENT: Atraumatic, normocephalic. Oral mucosa is moist. Neck: Supple. Cardiovascular: S1, S2 heard. Rate and rhythm regular. Respiratory: Clear to auscultation. Gastrointestinal: Abdomen is soft. Musculoskeletal: No tenderness. No edema. Dermatologic: No skin rash. Neurologic: Alert and awake and oriented x3. No focal neurologic deficits. Moving all the extremities. Psychiatric: Mood and affect normal. LABORATORY DATA: Potassium 4.4, BUN is 45, and creatinine is 3.5. ASSESSMENT AND PLAN: 1. Acute kidney injury on chronic kidney disease, stage 4, stable. 2. Hyponatremia. 3. Substance abuse. 4. Hypertension. 5. Hypoalbuminemia. 6. Anemia of chronic disease. Titrate medications. We will monitor renal function. Job ID: [id number]
[2019-05-02] MEDS: Nicotine 14 MG PATCH TD SCH (21:05)
--- NOTE | 2019-05-02 22:50 | PDOC.HOSPP ---
- Subjective Encounter Date: 05/02/19 Encounter Time: 09:45 Subjective: Patient seen and examined for HTN emergency/WILDER. No CP/SOB or palpitations. No new complaints. No overnight events - Objective Vital Signs & Weight: Vital Signs (12 hours) Temp Pulse Resp BP BP Pulse Ox 05/02/19 21:06 95 154/85 H 05/02/19 20:00 98.4 F 95 16 154/85 H 93 L 05/02/19 18:28 94 20 93 L 05/02/19 16:15 86 150/83 H 05/02/19 15:30 93 L 05/02/19 15:26 98.4 F 89 20 150/83 H 93 L 05/02/19 13:04 90 22 H 95 05/02/19 12:00 98.3 F Weight Admit Weight 163 lb 9.328 oz Weight 187 lb 1 oz Most Recent Monitor Data Heart Rate from ECG 93 NIBP 140/97 NIBP BP-Mean 111 Respiration from ECG 20 SpO2 96 I&O: 05/01/19 05/02/19 05/03/19 06:59 06:59 06:59 Intake Total 3489 1000 1250 Output Total 1705 1350 1725 Balance 7404 -296 -164 Result Diagrams: 05/02/19 03:43 05/02/19 03:43 EKG Reviewed by me: Yes (Tele SR) Hospitalist ROS - Review of Systems Respiratory: denies: cough, dry, shortness of breath, hemoptysis, SOB with excertion, pleuritic pain, sputum, wheezing, other Cardiovascular: denies: chest pain, palpitations, orthopnea, paroxysmal noc. dyspnea, edema, light headedness, other Gastrointestinal: denies: nausea, vomiting, abdominal pain, diarrhea, constipation, melena, hematochezia, other - Medication Medications: Active Medications Generic Name Dose Route Start Last Admin Trade Name Freq PRN Reason Stop Dose Admin Albuterol/Ipratropium 3 ml 05/02/19 01:00 05/02/19 18:28 Duoneb NEB 3 ml [id number] SIRI Administration Atorvastatin Calcium 40 mg 05/01/19 09:00 05/02/19 08:10 Lipitor PO 40 mg DAILY SIRI Administration Carvedilol 25 mg 05/01/19 08:00 05/02/19 16:15 Coreg PO 25 mg BID-WM SIRI Administration Enoxaparin Sodium 30 mg 05/01/19 09:00 05/02/19 08:10 Lovenox SC 30 mg 0900 SIRI Administration Famotidine 20 mg 04/30/19 09:00 05/02/19 08:12 Pepcid PO 20 mg Q24HR SIRI Administration Hydralazine HCl 25 mg 05/01/19 09:00 05/02/19 21:06 Apresoline PO 25 mg QID SIRI Administration Lorazepam 0.5 mg 04/30/19 13:22 05/01/19 20:05 Ativan PO 0.5 mg Q4H PRN Administration Agitation Nicotine 14 mg 05/01/19 20:00 05/02/19 21:05 Nicoderm Patch TD 14 mg Q24HR SIRI Administration Nifedipine 60 mg 05/01/19 09:00 05/02/19 08:10 Procardia Xl PO 60 mg DAILY SIRI Administration Ondansetron HCl 4 mg 04/30/19 02:34 05/02/19 16:14 Zofran IVP 4 mg Q6H PRN Administration Nausea/Vomiting Sodium Chloride 10 ml 04/30/19 09:00 05/02/19 21:06 Flush - Normal Saline IVF 10 ml Q12HR SIRI Administration - Exam General Appearance: NAD Neck: supple, no JVD Heart: RRR, no gallops Respiratory: no wheezes, no ronchi Gastrointestinal: soft, non-tender, normal bowel sounds Extremities: no cyanosis Hosp A/P - Plan DVT proph w/SCDs HTN emergency requiring Cardene drip WILDER on CKD 4/Metabolic acidosis Polysubstance abuse Anemia of chronic disease HTN heart disease HLD Elevated troponin due to uncontrolled HTN. ? type 2 [place] Headache - resolved Med noncompliance PLAN: Cont Coreg/Procardia XL/Statins CM consulted for med assist. DC once cleared by Nephrology
[2019-05-03] MEDS ORDERED: hydrALAZINE 10 MG TAB PO SCH (06:00)
[2019-05-03 06:25] LABS: Anion Gap 14 mmol/L (10-20); BUN (Urea Nitrogen) 49 mg/dL (8.9-20.6); Calc. Creatinine Clearance 25 mL/min (70-130); Calcium 8.5 mg/dL (7.8-10.44); Carbon Dioxide 23 mmol/L (22-29); Chloride 101 mmol/L (98-107); Estimated GFR-MDRD 15; Glucose 84 mg/dL (70-105); Potassium 3.4 mmol/L (3.5-5.1); Sodium 135 mmol/L (136-145)
[2019-05-03] MEDS: Atorvastatin Calcium 40 MG TAB PO SCH (08:22)
[2019-05-03] MEDS: Carvedilol 25 MG TAB PO SCH ×2 (08:26→16:46)
[2019-05-03] MEDS: hydrALAZINE 25 MG TAB PO SCH ×4 (08:26→20:19)
[2019-05-03] MEDS: Enoxaparin Sodium 30 MG/0.3 ML SYRINGE SC SCH (08:26)
[2019-05-03] MEDS: NIFEdipine XL 60 MG TAB PO SCH (08:32)
[2019-05-03] MEDS: Famotidine 20 MG TAB PO SCH (08:32)
--- NOTE | 2019-05-03 10:50 | PRG ---
DATE OF SERVICE: 05/03/2019 SUBJECTIVE: Patient was seen and examined at bedside and overnight events noted. Patient denies any shortness of breath or chest pain or palpitation. No history of nausea or vomiting or diarrhea or fever or chills or cramps. OBJECTIVE: GENERAL: This is a well built male in no acute distress. VITAL SIGNS: Temperature 99.3. Heart rate 97. Respiratory rate 18. Blood pressure 177/91. HEENT: Atraumatic, normocephalic. Oral mucosa is moist NECK: Supple. CARDIOVASCULAR: S1, S2 heard. Rate and rhythm regular. RESPIRATORY: Clear to auscultation. GASTROINTESTINAL: Abdomen is soft. MUSCULOSKELETAL: No tenderness. No edema. DERMATOLOGIC: No skin rash. NEUROLOGIC: Alert and awake and oriented X3. No focal neurologic deficits. Moving all the extremities. PSYCHIATRIC: Mood and affect normal. LABORATORY DATA: Potassium is 3.4, BUN is 49, and creatinine is 4.3. ASSESSMENT AND PLAN: 1. Acute kidney injury on chronic kidney stage 4 with worsening. No acute indication for dialysis, but if creatinine is worse, he might need dialysis. 2. Hypokalemia, replaced. 3. Substance abuse. 4. History of hypertension. Uptitrate medication. May increase hydralazine. 5. Anemia of chronic disease. 6. Hypoalbuminemia. 7. No acute indication for dialysis. Job ID: [id number]
--- NOTE | 2019-05-03 19:14 | PDOC.HOSPP ---
- Subjective Encounter Date: 05/03/19 Encounter Time: 17:00 Subjective: Patient seen and examined for HTN crisis. No CP/SOB. No new complaints. No overnight events - Objective Vital Signs & Weight: Vital Signs (12 hours) Temp Pulse Resp BP BP Pulse Ox 05/03/19 18:41 89 14 98 05/03/19 16:39 98.0 F 87 16 175/103 H 93 L 05/03/19 12:32 83 14 05/03/19 12:09 83 181/117 H 05/03/19 11:47 83 181/117 H 05/03/19 11:30 98.3 F 83 16 98 05/03/19 09:23 177/91 H 05/03/19 08:32 97 183/113 H 05/03/19 08:26 97 183/113 H 05/03/19 08:22 98.3 F 97 18 191/103 H 92 L 05/03/19 07:56 92 L Weight Admit Weight 163 lb 9.328 oz Weight 187 lb 1 oz Most Recent Monitor Data Heart Rate from ECG 93 NIBP 140/97 NIBP BP-Mean 111 Respiration from ECG 20 SpO2 96 I&O: 05/02/19 05/03/19 05/04/19 06:59 06:59 06:59 Intake Total 1000 1250 2000 Output Total 1350 1725 2200 Balance -350 -744 -200 Result Diagrams: 05/02/19 03:43 05/03/19 05:38 Hospitalist ROS - Review of Systems Respiratory: denies: cough, dry, shortness of breath, hemoptysis, SOB with excertion, pleuritic pain, sputum, wheezing, other Cardiovascular: denies: chest pain, palpitations, orthopnea, paroxysmal noc. dyspnea, edema, light headedness, other Gastrointestinal: denies: nausea, vomiting, abdominal pain, diarrhea, constipation, melena, hematochezia, other - Medication Medications: Active Medications Generic Name Dose Route Start Last Admin Trade Name Freq PRN Reason Stop Dose Admin Albuterol/Ipratropium 3 ml 05/02/19 01:00 05/03/19 18:41 Duoneb NEB 3 ml [id number] SIRI Administration Atorvastatin Calcium 40 mg 05/01/19 09:00 05/03/19 08:22 Lipitor PO 40 mg DAILY SIRI Administration Carvedilol 25 mg 05/01/19 08:00 05/03/19 16:46 Coreg PO 25 mg BID-WM SIRI Administration Famotidine 20 mg 04/30/19 09:00 05/03/19 08:32 Pepcid PO 20 mg Q24HR SIRI Administration Hydralazine HCl 50 mg 05/03/19 13:00 05/03/19 16:46 Apresoline PO 50 mg QID SIRI Administration Lorazepam 0.5 mg 04/30/19 13:22 05/01/19 20:05 Ativan PO 0.5 mg Q4H PRN Administration Agitation Nicotine 14 mg 05/01/19 20:00 05/02/19 21:05 Nicoderm Patch TD 14 mg Q24HR SIRI Administration Nifedipine 60 mg 05/01/19 09:00 05/03/19 08:32 Procardia Xl PO 60 mg DAILY SIRI Administration Ondansetron HCl 4 mg 04/30/19 02:34 05/02/19 16:14 Zofran IVP 4 mg Q6H PRN Administration Nausea/Vomiting Sodium Chloride 10 ml 04/30/19 09:00 05/03/19 08:26 Flush - Normal Saline IVF 10 ml Q12HR SIRI Administration - Exam General Appearance: NAD Heart: RRR, no gallops Respiratory: no wheezes, no ronchi Gastrointestinal: non-tender, non-distended, normal bowel sounds Extremities: no cyanosis Neurological: no new deficit Hosp A/P - Plan DVT proph w/SCDs HTN emergency s/p Cardene drip WILDER on CKD 4/Metabolic acidosis Polysubstance abuse Anemia of chronic disease HTN heart disease HLD Elevated troponin due to uncontrolled HTN. ? type 2 [place] Headache - resolved Med noncompliance PLAN: Increase Hydralazine dose Cont Coreg/Procardia XL Cont Statins Creatinine worsening BMP in AM
[2019-05-03] MEDS: Nicotine 14 MG PATCH TD SCH (20:17)
[2019-05-03] MEDS: hydrALAZINE 20 MG/ML VIAL SLOW IVP PRN (21:38)
[2019-05-04] MEDS ORDERED: cloNIDine 0.1 MG TAB PO SCH (00:30)
[2019-05-04] MEDS: hydrALAZINE 20 MG/ML VIAL SLOW IVP PRN (01:55)
[2019-05-04] MEDS ORDERED: Labetalol HCl 100 MG/20 ML VIAL SLOW IVP SCH (02:45)
[2019-05-04 05:45] LABS: Anion Gap 14 mmol/L (10-20); BUN (Urea Nitrogen) 48 mg/dL (8.9-20.6); Calc. Creatinine Clearance 27 mL/min (70-130); Calcium 8.7 mg/dL (7.8-10.44); Carbon Dioxide 24 mmol/L (22-29); Chloride 102 mmol/L (98-107); Estimated GFR-MDRD 16; Glucose 91 mg/dL (70-105); Potassium 3.6 mmol/L (3.5-5.1); Sodium 136 mmol/L (136-145)
[2019-05-04] MEDS: NIFEdipine XL 60 MG TAB PO SCH (08:35)
[2019-05-04] MEDS: Atorvastatin Calcium 40 MG TAB PO SCH (08:36)
[2019-05-04] MEDS: Carvedilol 25 MG TAB PO SCH (08:36)
[2019-05-04] MEDS: Famotidine 20 MG TAB PO SCH (08:42)
[2019-05-04] MEDS ORDERED: hydrALAZINE 25 MG TAB PO SCH ×2 (09:00→12:00)
[2019-05-04] MEDS ORDERED: ALPRAZolam 0.25 MG TAB PO SCH (09:00)
[2019-05-04] MEDS ORDERED: cloNIDine 0.2 MG TAB PO SCH (09:00)
[2019-05-04] MEDS ORDERED: cloNIDine 0.1 MG TAB PO PRN (10:40)
[2019-05-04 11:02] VITALS: BP 197/105; TEMP 98.3
--- NOTE | 2019-05-04 11:46 | PRG ---
DATE OF SERVICE: 05/04/2019 SUBJECTIVE: Patient was seen and examined at bedside and overnight events noted. Patient denies any shortness of breath or chest pain or palpitation. No history of nausea or vomiting or diarrhea or fever or chills or cramps. OBJECTIVE: GENERAL: This is well-built male, in no acute distress. Vital Signs: Temperature 98.3. Heart Rate 89. Respiratory rate 18. Blood pressure 197/105. HEENT: Atraumatic, normocephalic. Oral mucosa is moist. Neck: Supple. Cardiovascular: S1, S2 heard. Rate and rhythm regular. Respiratory: Clear to auscultation. Gastrointestinal: Abdomen is soft. Musculoskeletal: No tenderness. No edema. Dermatologic: No skin rash. Neurologic: Alert and awake and oriented x3. No focal neurologic deficits. Moving all the extremities. Psychiatric: Mood and affect normal. LABORATORY DATA: Potassium 3.6, BUN is 48, creatinine is 4.1. ASSESSMENT AND PLAN: 1. Acute kidney injury on chronic kidney disease stage 4, stable. 2. Hypertension. Agree with increasing Procardia and hydralazine. Discussed with Dr. Glover. 3. Hypokalemia, replace. 4. Substance abuse. 5. Hypoalbuminemia. 6. Up titrate blood pressure medicines. Discussed with Dr. Glover and we will follow. Renal function is stable. Job ID: [id number]
--- NOTE | 2019-05-04 15:07 | DIS ---
DATE OF ADMISSION: 04/30/2019 DATE OF DISCHARGE: 05/04/2019 DISCHARGE DISPOSITION: The patient left against medical advice. The patient was seen and examined on the day of discharge. Denies any new complaints. Vital signs on the day of discharge showed blood pressure of 197/105 with respirations of 18, pulse rate of 89, temperature 98.3, and O2 saturations 95% on room air. BRIEF HOSPITAL COURSE: The patient is a 48-year-old male with hypertension, chronic hepatitis C, and polysubstance abuse, presented to the emergency room with intractable headache. His blood pressure in the emergency room was 228/150. He was monitored in the intensive care unit on Cardene drip. His blood pressure was gradually lowered. He was restarted on carvedilol, Procardia XL along with hydralazine. His blood pressure medications were gradually titrated. The patient left against medical advice earlier today. He understands the risks, not limited to life threatening complications from uncontrolled blood pressure. He was also evaluated by Critical Care as well as Nephrology due to worsening creatinine. His creatinine on the day of discharge was 4.11 with a maximum creatinine 4.38. His creatinine on admission was 3.13. Lifestyle modification was emphasized. DIAGNOSTIC TESTS: 1. Urine drug screen was positive for amphetamine, methamphetamine, benzos, and cannabinoids. 2. Creatinine as discussed above. 3. Troponin maximum of 0.082. 4. Sodium 134. 5. Hemoglobin 10.2. 6. CT scan of the brain was negative. IMAGING STUDIES: Chest x-ray was negative. IMPRESSION: 1. Hypertensive emergency requiring Cardene drip. 2. Acute kidney injury on chronic kidney disease stage 4. 3. Metabolic acidosis. 4. Polysubstance abuse. 5. Anemia of chronic disease. 6. Hypertensive heart disease. 7. Hyperlipidemia. 8. Elevated troponin due to uncontrolled blood pressure, questionable type 2 myocardial infarction. 9. Generalized headaches, probably secondary to uncontrolled blood pressure, resolved. 10. Medication noncompliance. The patient understands the consequences of signing AMA. Job ID: [id number]
[2019-05-04] MEDS ORDERED: NIFEdipine XL 60 MG TAB PO SCH (21:00)
--- NOTE | 2019-05-05 13:14 | EKG ---
Test Reason : HYPERTENSION Blood Pressure : / mmHG Vent. Rate : 079 BPM Atrial Rate : 079 BPM P-R Int : 126 ms QRS Dur : 090 ms QT Int : 424 ms P-R-T Axes : 062 070 095 degrees QTc Int : 486 ms Normal sinus rhythm Minimal voltage criteria for LVH, may be normal variant Prolonged QT Abnormal ECG Confirmed by OSITO MADRID ([id number]), technical writer and editor KHUSHBOO ALVES ([id number]) on 05/05/2019 1:13:35 PM Referred By: JULIUS Confirmed By:OSITO MADRID
== END 2019-05-04 13:32 | disposition left against medical advice (07) | DRG 281 ==
LOC: ERS 23:26 → ERHOLD 04-30 02:15 → CCU 04-30 03:19 → T4-B 05-02 15:25
PROVIDERS: ADMIT Internal Medicine; ATTEND Internal Medicine
DX: I16.1 Hypertensive emergency (principal); I21.A1 Myocardial infarction type 2; N17.9 Acute kidney failure, unspecified; N18.4 Chronic kidney disease, stage 4 (severe); E87.2 Acidosis; E87.1 Hypo-osmolality and hyponatremia; E78.5 Hyperlipidemia, unspecified; D63.1 Anemia in chronic kidney disease; Z91.14 Patient's other noncompliance with medication regimen; I13.10 Hypertensive heart and chronic kidney disease without heart failure, with stage 1 through stage 4 chronic kidney disease, or unspecified chronic kidney disease; F41.9 Anxiety disorder, unspecified; F15.10 Other stimulant abuse, uncomplicated; I25.10 Atherosclerotic heart disease of native coronary artery without angina pectoris; R45.1 Restlessness and agitation; B18.2 Chronic viral hepatitis C; E88.09 Other disorders of plasma-protein metabolism, not elsewhere classified; E87.6 Hypokalemia; Z86.73 Personal history of transient ischemic attack (TIA), and cerebral infarction without residual deficits
CPT/HCPCS: 36415; 70450; 71045; 80048; 80053; 80306; 80307; 82553; 83735; 83880; 84100; 84484; 85025; 93005; 94640; 94760; 96374; 96375; 99406; J0360; J1650; J1940; J2405; J7050; J7620

== ENCOUNTER 2019-09-17 22:51 | Inpatient (IN) | payer OTHER, SELFPAY ==
--- NOTE | 2019-09-17 23:22 | RAD ---
XR Chest 1 View Portable HISTORY: Chest pain COMPARISON: 05/02/2019 FINDINGS: The heart size is normal. The lungs are well expanded without focal areas of consolidation, pneumothorax or pleural effusions. IMPRESSION: No radiographic evidence of acute cardiopulmonary process.
[2019-09-17 23:37] LABS: #Basophils 0.1 thou/uL (0.0-0.2); #Eosinphils 0.7 thou/uL (0.0-0.7); #Lymphocytes 0.7 thou/uL (1.20-3.40); #Monocytes 0.5 thou/uL (0.11-0.59); #Neutrophils 3.5 thou/uL (1.40-6.50); %Basophils 1.3 % (0.0-1.0); %Eosinophils 12.6 % (0.0-10.0); %Lymphocytes 12.6 % (21.0-51.0); %Monocytes 8.4 % (0.0-10.0); Hemoglobin 10.5 g/dL (14.0-18.0); Mean Corpuscular HGB CONC 32.1 g/dL (32.0-36.0); Mean Corpuscular Hemoglobin 28.4 pg (27.0-31.0); Mean Corpuscular Volume 88.5 fL (78.0-98.0); Mean Platelet Volume 8.1 fL (7.4-10.4); Platelet Count 190 thou/uL (130-400); RBC Distribution Width 15.9 % (11.5-14.5); White Blood Cell (WBC) Count 5.3 thou/uL (4.8-10.8)
[2019-09-17] MEDS ORDERED: Nitroglycerin 2% Ointment 1 INCH/1 GM Packet ONE (23:38)
[2019-09-17 23:58] LABS: ALT (SGPT) 42 U/L (8-55); AST (SGOT) 45 U/L (5-34); Albumin 3.9 g/dL (3.5-5.0); Alkaline Phosphatase 116 U/L (40-110); Anion Gap 13 mmol/L (10-20); BUN (Urea Nitrogen) 41 mg/dL (8.9-20.6); Bilirubin, Total 0.4 mg/dL (0.2-1.2); Calc. Creatinine Clearance 0 mL/min (70-130); Calcium 8.5 mg/dL (7.8-10.44); Carbon Dioxide 20 mmol/L (22-29); Chloride 106 mmol/L (98-107); Estimated GFR-MDRD 16; Glucose 96 mg/dL (70-105); Potassium 3.4 mmol/L (3.5-5.1); Protein, Total 6.9 g/dL (6.0-8.3); Sodium 136 mmol/L (136-145)
[2019-09-18 00:20] LABS: CKMB 3.5 ng/mL (0-6.6)
[2019-09-18] MEDS ORDERED: Furosemide 20 MG/2 ML VIAL ONE (00:31)
[2019-09-18] MEDS ORDERED: Potassium Chloride 20 MEQ TAB ONE (01:48)
[2019-09-18 02:24] VITALS: BMI 24.7
[2019-09-18] MEDS ORDERED: hydrALAZINE 25 MG TAB PO SCH ×3 (03:15→10:00)
[2019-09-18] MEDS ORDERED: cloNIDine 0.1 MG TAB PO PRN (04:28)
[2019-09-18 04:47] LABS: Troponin I 0.048 ng/mL (< 0.028)
[2019-09-18] MEDS ORDERED: hydrALAZINE 20 MG/ML VIAL SLOW IVP PRN (06:35)
[2019-09-18 07:23] LABS: #Eosinphils 0.6 thou/uL (0.0-0.7); #Lymphocytes 0.6 thou/uL (1.20-3.40); #Monocytes 0.4 thou/uL (0.11-0.59); #Neutrophils 2.8 thou/uL (1.40-6.50); %Basophils 0.8 % (0.0-1.0); %Lymphocytes 14.3 % (21.0-51.0); %Monocytes 8.7 % (0.0-10.0); %Neutrophils 62.1 % (42.0-75.0); Hemoglobin 10.5 g/dL (14.0-18.0); Mean Corpuscular HGB CONC 33.4 g/dL (32.0-36.0); Mean Corpuscular Hemoglobin 29.6 pg (27.0-31.0); Mean Corpuscular Volume 88.6 fL (78.0-98.0); Mean Platelet Volume 7.8 fL (7.4-10.4); Platelet Count 173 thou/uL (130-400); RBC Distribution Width 15.7 % (11.5-14.5); Red Blood Cell (RBC) Count 3.55 mill/uL (4.70-6.10); White Blood Cell (WBC) Count 4.4 thou/uL (4.8-10.8)
--- NOTE | 2019-09-18 07:27 | HP ---
REASON FOR ADMISSION: Chest pain. HISTORY OF PRESENT ILLNESS: This is a 48-year-old male patient who is a very poor historian who presents to the ER complaining of chest pain. 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 He does report orthopnea and shortness of breath on exertion. He does report increased lower extremity edema. In the ER, he was given a dose of Lasix and he had a nitroglycerin patch placed on his chest. Currently, patient is on telemetry. He appears to be comfortable, but reports being tired. I did review his records and his last admission to our hospital was in April of this year. At that time, his blood pressure was very elevated. He was admitted, but then left against medical advice. PAST MEDICAL HISTORY: 1. High blood pressure. 2. Chronic kidney disease, stage 4. 3. Anemia of chronic disease. 4. High cholesterol. 5. Abnormal troponin, thought to be due to uncontrolled blood pressure. 6. Type 2 myocardial infarction. 7. Hepatitis C. 8. TIA. 9. Anxiety. SOCIAL HISTORY: He abuses IV methamphetamine. He does not smoke cigarettes. He uses marijuana. FAMILY HISTORY: Negative for heart disease. ALLERGIES: NO NOTE OF ANY DRUG ALLERGY. REVIEW OF SYSTEMS: All systems reviewed except the above-mentioned and found to be negative. PHYSICAL EXAMINATION: GENERAL: Awake, alert, oriented, does not appear in distress. VITAL SIGNS: His blood pressure is 168/94, his heart rate is 70, temperature is 98.6, saturating 97% room air. HEAD: Nontraumatic, normocephalic. Pupils equal, reactive. Extraocular movements are intact. Nonicteric sclerae. Well injected conjunctivae. Oral mucosa normal. Nasal mucosa normal. NECK: Supple. No adenopathy. No murmur. Thyroid is not palpable. Trachea is midline. No supraclavicular adenopathy HEART: S1, S2 regular. No murmur. No gallops. No friction rubs. No displacement of PMI. LUNGS: Decreased air entry bilaterally. Diffuse end-expiratory wheezes, rhonchi. Bowel sounds are positive. Nontender abdomen. He does have 2+ pitting edema in bilateral lower extremities, more on the right than the left. Neurologic: Cranial nerves 2-12 within normal limits. Normal motor function. Normal sensory function. Normal reflexes. LABORATORY DATA: Blood work shows WBC of 5.3, hemoglobin 10.5, platelets of 190. Sodium 136, potassium 3.4, bicarb 20, creatinine 4.16, baseline around 4.11, troponin 0.048, initially 0.034. BNP 456. IMAGIN. Chest x-ray shows no acute disease. 2. EKG shows normal sinus rhythm, prolonged QTc. ASSESSMENT AND PLAN: This is a 48-year-old male patient who is presenting with uncontrolled blood pressure, also chest pain. He does have abnormal troponin. 1. Cardiac: The patient admitted to telemetry. We will provide him with blood pressure control by resuming his home medication, also adding hydralazine and clonidine on as needed basis. We will continue cycling his cardiac enzymes. We will diurese him since he appears to be a bit fluid overloaded, witnessed by these bilateral lower extremity edema. We will start him on baby aspirin and we will ask Cardiology to see him. 2. For deep venous thrombosis prophylaxis, he will be on heparin subcutaneously. 3. Pulmonary: I believe that he has some element of chronic obstructive pulmonary disease exacerbation. On auscultation, he is wheezing. We will start him on DuoNeb as scheduled and as needed. 4. For his chronic kidney disease, we will continue to monitor his kidney function while being diuresed. Job ID: [id number]
[2019-09-18] MEDS: Aspirin 81 mg Enteric Coated Tablet PO SCH (07:41)
[2019-09-18] MEDS: Heparin 5,000 UNITS/ML VIAL SC SCH ×3 (07:41→20:58)
[2019-09-18] MEDS: Atorvastatin Calcium 40 MG TAB PO SCH (07:41)
[2019-09-18] MEDS: Furosemide 40 MG/4 ML VIAL SLOW IVP SCH (07:42)
[2019-09-18] MEDS: Carvedilol 25 MG TAB PO SCH ×2 (07:44→17:06)
[2019-09-18] MEDS ORDERED: Electrolyte Replacement Protoc 1 EACH EACH FS SCH (07:45)
[2019-09-18 07:47] LABS: Anion Gap 14 mmol/L (10-20); BUN (Urea Nitrogen) 43 mg/dL (8.9-20.6); Calc. Creatinine Clearance 29 mL/min (70-130); Calcium 8.6 mg/dL (7.8-10.44); Carbon Dioxide 20 mmol/L (22-29); Chloride 107 mmol/L (98-107); Estimated GFR-MDRD 17; Glucose 99 mg/dL (70-105); Potassium 3.4 mmol/L (3.5-5.1); Sodium 138 mmol/L (136-145)
[2019-09-18 07:52] LABS: Troponin I 0.042 ng/mL (< 0.028)
[2019-09-18] MEDS ORDERED: NIFEdipine XL 60 MG TAB PO SCH (09:00)
[2019-09-18] MEDS ORDERED: Potassium Chloride 20 MEQ TAB PO SCH ×2 (10:00→13:15)
[2019-09-18] MEDS ORDERED: Lisinopril 5 MG TAB PO SCH (12:45)
[2019-09-18] MEDS ORDERED: Chlorthalidone 25 MG TAB PO SCH (12:45)
[2019-09-18] MEDS ORDERED: Acetaminophen 500 MG TAB PO PRN (13:12)
[2019-09-18] MEDS: hydrALAZINE 25 MG TAB PO SCH ×2 (13:27→20:58)
[2019-09-18 14:30] LABS: SARS-CoV-2 MS2 Positive; SARS-CoV-2 N Gene Negative; SARS-CoV-2 S Gene Negative; SARS-CoV-2 by NAA Not Detected (NotDetected); SARS-CoV-2 orf1ab Negative
[2019-09-18 17:48] LABS: Amphetamine Detected (NotDetected); Barbiturates Screen Not Detected (NotDetected); Benzodiazepine Screen Not Detected (NotDetected); Cocaine Metabolite Screen Not Detected (NotDetected); Medtox Control Line Valid? VALID (VALID); Medtox Reader # READER 4; Methadone Not Detected (NotDetected); Methamphetamine Detected (NotDetected); Opiate Screen Not Detected (NotDetected); Oxycodone Screen Not Detected (NotDetected); Phencyclidine (PCP) Not Detected (NotDetected); THC/Cannabinoid Screen Detected (NotDetected); Tricyclic Screen Not Detected (NotDetected)
--- NOTE | 2019-09-18 18:44 | CON ---
DATE OF CONSULTATION: 09/18/2019 REASON FOR CONSULTATION: Chest pain. HISTORY OF PRESENT ILLNESS: Mr. Chun is a 48-year-old white gentleman, who comes to the hospital for chest pain. He has been admitted here in the past for similar situation and was thought to be related to methamphetamine abuse. He states that he has been clean for about 2 months now and he was doing really well and just 2 days prior to admission, he had a relapse and started using methamphetamines again and started having chest pains right after. He currently is feeling a lot better. His chest pain is gone. His breathing has never really been an issue. PAST MEDICAL HISTORY: 1. Hypertension. 2. Chronic kidney disease stage 4. 3. Anemia of chronic disease. 4. Hyperlipidemia. 5. Indeterminate troponin. 6. Hepatitis C. 7. TIA in the past. PAST SURGICAL HISTORY: None. SOCIAL HISTORY: Methamphetamine use. No tobacco. He is positive for marijuana. FAMILY HISTORY: Noncontributory. OUTPATIENT MEDICATIONS: 1. Nifedipine 60 mg a day. 2. Carvedilol 25 mg b.i.d. 3. Atorvastatin 40 mg a day. 4. Hydralazine 100 mg q.6 hours. ALLERGIES: NO KNOWN DRUG ALLERGIES. REVIEW OF SYSTEMS: A 12-point review of systems was done and was found to be negative other than stated in the history of present illness. PHYSICAL EXAMINATION: VITAL SIGNS: Temperature 97.2, pulse 79, respiratory rate 16, saturating 96% on room air, blood pressure 171/103, as high as 210/121 when he was admitted. GENERAL: Awake, alert, oriented x3, no distress. HEENT: Normocephalic and atraumatic. NECK: Supple. LUNGS: Clear. CARDIOVASCULAR: S1 and S2. No S3 or S4. No murmurs. ABDOMEN: Soft. Positive bowel sounds. EXTREMITIES: No edema. SKIN: Warm and dry. LABORATORY AND DIAGNOSTIC DATA: Laboratory work was reviewed. White count of 5, hemoglobin of 10, hematocrit 32, platelet count of 190. Chemistry with a sodium of 136, potassium was 3.4, chloride 106, carbon dioxide of 20, anion gap of 13, BUN of 41, creatinine 4.16, down to 3.8. Troponin was 0.03, 0.04, 0.04. BNP was 456. CK-MB was normal. EKG was reviewed. Chest x-ray was reviewed. ASSESSMENT: 1. Hypertensive emergency. 2. Substance abuse. 3. Medication noncompliance. 4. Chronic kidney disease stage 4. 5. Hypokalemia. PLAN: 1. We will repeat echocardiogram. Last time, his EF was normal about 60% to 65%. 2. Continue his home regimen to try to lower his blood pressure. 3. We will get a urine drug screen to see what other drugs may be in his system other than marijuana and methamphetamines. 4. No plan on heart catheterization as this would definitely make him go into renal failure and push him into dialysis. 5. At this time, continue conservative therapy. Most likely, his chest pain is related to his methamphetamine use and very elevated high blood pressure. Thank you for letting us to participate in the care of your patient. We will follow. Job ID: [id number]
[2019-09-19 04:35] LABS: #Eosinphils 0.6 thou/uL (0.0-0.7); #Lymphocytes 0.8 thou/uL (1.20-3.40); #Monocytes 0.5 thou/uL (0.11-0.59); #Neutrophils 2.8 thou/uL (1.40-6.50); %Eosinophils 13.1 % (0.0-10.0); %Neutrophils 59.9 % (42.0-75.0); Hemoglobin 11.3 g/dL (14.0-18.0); Mean Corpuscular HGB CONC 31.8 g/dL (32.0-36.0); Mean Corpuscular Hemoglobin 28.1 pg (27.0-31.0); Mean Corpuscular Volume 88.2 fL (78.0-98.0); Mean Platelet Volume 8.3 fL (7.4-10.4); Platelet Count 203 thou/uL (130-400); RBC Distribution Width 15.7 % (11.5-14.5); Red Blood Cell (RBC) Count 4.03 mill/uL (4.70-6.10); White Blood Cell (WBC) Count 4.7 thou/uL (4.8-10.8)
[2019-09-19] MEDS: hydrALAZINE 25 MG TAB PO SCH ×2 (04:50→12:23)
[2019-09-19 04:59] LABS: Anion Gap 12 mmol/L (10-20); BUN (Urea Nitrogen) 48 mg/dL (8.9-20.6); Calc. Creatinine Clearance 29 mL/min (70-130); Carbon Dioxide 21 mmol/L (22-29); Chloride 106 mmol/L (98-107); Estimated GFR-MDRD 18; Potassium 3.9 mmol/L (3.5-5.1); Sodium 135 mmol/L (136-145)
[2019-09-19 05:00] LABS: Calcium 8.4 mg/dL (7.8-10.44); Glucose 80 mg/dL (70-105)
[2019-09-19] MEDS: Carvedilol 25 MG TAB PO SCH (08:43)
[2019-09-19] MEDS: Furosemide 40 MG/4 ML VIAL SLOW IVP SCH (08:43)
[2019-09-19] MEDS: Aspirin 81 mg Enteric Coated Tablet PO SCH (08:44)
[2019-09-19] MEDS: Atorvastatin Calcium 40 MG TAB PO SCH (08:44)
[2019-09-19] MEDS: Heparin 5,000 UNITS/ML VIAL SC SCH ×2 (08:44→15:24)
[2019-09-19] MEDS ORDERED: Chlorthalidone 25 MG TAB PO SCH (09:00)
[2019-09-19] MEDS ORDERED: Lisinopril 5 MG TAB PO SCH (09:00)
[2019-09-19] MEDS ORDERED: NIFEdipine XL 90 MG TAB PO SCH (09:00)
[2019-09-19 11:23] VITALS: TEMP 98.2
[2019-09-19 16:05] VITALS: BP 149/96
--- NOTE | 2019-09-19 16:57 | PDOC.CPN ---
- Subjective Date: 09/19/19 Time: 16:53 Interval history: No new issues. Feels back to baseline. - Review of Systems General: denies: fever/chills, weight/appetite/sleep changes, night sweats, fatigue Respiratory: denies: cough, congestion, shortness of breath, exercise intolerance Cardiovascular: denies: chest pain, palpitation, edema, paroxysmal nocturnal dyspnea, orthopnea Gastrointestinal: denies: nausea, vomiting, diarrhea, constipation, abd pain, GI bleeding Musculoskeletal: denies: pain, tenderness, stiffness, swelling, arthritis/ arthralgias Neurological: denies: numbness, syncope, seizure, weakness - Objective Allergies/Adverse Reactions: Allergies Allergy/AdvReac Type Severity Reaction Status Date / Time No Known Allergies Allergy Verified 09/18/19 02:34 Visit Medications: Current Medications Acetaminophen (Tylenol) 1,000 mg PO Q6H PRN PRN Reason: Headache/Fever or Pain Last Admin: 09/18/19 13:27 Dose: 1,000 mg Albuterol/Ipratropium (Duoneb) 3 ml IPPB [id number] [facility] Last Admin: 09/19/19 12:16 Dose: Not Given Albuterol/Ipratropium (Duoneb) 3 ml NEB [id number] PRN PRN Reason: SOB &/or Wheezing Aspirin (Ecotrin) 81 mg PO DAILY [facility] Last Admin: 09/19/19 08:44 Dose: 81 mg Atorvastatin Calcium (Lipitor) 40 mg PO DAILY [facility] Last Admin: 09/19/19 08:44 Dose: 40 mg Carvedilol (Coreg) 25 mg PO BID-[facility] Last Admin: 09/19/19 08:43 Dose: 25 mg Chlorthalidone (Hygroton) 12.5 mg PO DAILY [facility] Last Admin: 09/19/19 08:43 Dose: 12.5 mg Furosemide (Lasix) 40 mg SLOW IVP DAILY [facility] Last Admin: 09/19/19 08:43 Dose: 40 mg Heparin Sodium (Porcine) (Heparin) 5,000 units SC TID [facility] Last Admin: 09/19/19 15:24 Dose: Not Given Hydralazine HCl (Apresoline) 10 mg SLOW IVP Q6H PRN PRN Reason: Hypertension Last Admin: 09/18/19 17:07 Dose: 10 mg Hydralazine HCl (Apresoline) 100 mg PO Q8H [facility] Last Admin: 09/19/19 12:23 Dose: 100 mg Miscellaneous Medication (Electrolyte Replacement Protocol) 1 each FS ASDIR [facility] Nifedipine (Procardia Xl) 90 mg PO DAILY [facility] Last Admin: 09/19/19 08:44 Dose: 90 mg Sodium Chloride (Flush - Normal Saline) 10 ml IVF Q12HR [facility] Last Admin: 09/19/19 08:44 Dose: 10 ml Sodium Chloride (Flush - Normal Saline) 10 ml IVF PRN PRN PRN Reason: Saline Flush Vital Signs & Weight: Vital Signs Temp Pulse Resp BP BP Pulse Ox 09/19/19 16:00 98.2 F 67 16 149/96 H 98 09/19/19 11:23 98.2 F 68 18 124/79 98 09/19/19 08:40 97.9 F 70 20 165/107 H 97 09/19/19 05:44 153/103 H Weight 183 lb 3.2 oz - Physical Exam General: alert & oriented x3 HEENT: mucus membranes moist Neck: supple neck Cardiac: regular rate and rhythm Lungs: clear to auscultation Neuro: grossly intact Abdomen: active bowel sounds Extremities: no edema Skin: clear Musculoskeletal: no pain - Labs Result Diagrams: 09/19/19 04:13 09/19/19 04:13 Troponin/CKMB CK-MB (CK-2) 3.5 ng/mL (0-6.6) 09/17/19 23:29 Troponin I 0.042 ng/mL (< 0.028) H 09/18/19 07:06 - Telemetry Sinus rhythms and dysrhythmias: sinus rhythm - Assessment/Plan Assessment/Plan: 1. Hypertensive emergency 2. Substance abuse 3. Non compliance 4. CKD stage 4 PLAN: - BP better now int he 120's last check. - Normal LV function. - May discharge from cardiac perspective.
--- NOTE | 2019-09-19 22:09 | DIS ---
DATE OF ADMISSION: 09/18/2019 DATE OF DISCHARGE: 09/19/2019 HOSPITAL COURSE: Mr. leung is a 48-year-old male with a medical history of hypertension, CKD 4, hepatitis C, and polysubstance abuse, who presented with chest pain. He was diagnosed with demand ischemia due to amphetamine abuse. Cardiology was consulted and decided to not do a left heart catheterization concerning the patient's likely etiology and CKD 4 in order to avoid further damage to the kidney. Medical management was carried out and the patient improved promptly. He was discharged home with followup appointments with primary care physician. PHYSICAL EXAMINATION: VITAL SIGNS: Blood pressure 149/96, pulse 67, respiratory rate 16, oxygen saturation 98% on room air, temperature 98.2. GENERAL: Awake, alert, oriented, does not appear in distress. HEENT: Normocephalic, atraumatic. NECK: No JVD. CARDIAC: Regular rate and rhythm. No murmurs, gallops, or rubs. LUNGS: Clear to auscultation bilaterally. No wheezing, rales, or rhonchi. EXTREMITIES: Bilateral equal pitting edema up to mid tibial level. MEDICATIONS: New medications: 1. Aspirin 81 mg p.o. daily. 2. Lisinopril 5 mg p.o. daily. Old medications: 1. Atorvastatin. 2. Coreg. 3. Hydralazine. 4. Nifedipine. Discontinued medications: No discontinued medications. Modified medications: No modified medications. The patient endorsed being followed up by Nephrology as well and initiating the discussion regarding initiation of hemodialysis. Job ID: [id number]
== END 2019-09-19 16:59 | disposition home or self-care (01) | DRG 918 ==
LOC: ERS 22:51 → 2NO 09-18 00:44
PROVIDERS: ADMIT Internal Medicine; ATTEND Internal Medicine
DX: T43.621A Poisoning by amphetamines, accidental (unintentional), initial encounter (principal); I24.8 Other forms of acute ischemic heart disease; N18.4 Chronic kidney disease, stage 4 (severe); I16.1 Hypertensive emergency; I12.9 Hypertensive chronic kidney disease with stage 1 through stage 4 chronic kidney disease, or unspecified chronic kidney disease; F15.10 Other stimulant abuse, uncomplicated; B19.20 Unspecified viral hepatitis C without hepatic coma; D63.1 Anemia in chronic kidney disease; E78.00 Pure hypercholesterolemia, unspecified; F41.9 Anxiety disorder, unspecified; E87.70 Fluid overload, unspecified; I45.81 Long QT syndrome; E87.6 Hypokalemia; Z20.828 Contact with and (suspected) exposure to other viral communicable diseases; Z79.899 Other long term (current) drug therapy; I25.2 Old myocardial infarction; Z86.73 Personal history of transient ischemic attack (TIA), and cerebral infarction without residual deficits; Z91.14 Patient's other noncompliance with medication regimen
CPT/HCPCS: 36415; 71045; 80048; 80053; 80306; 82553; 83880; 84484; 85025; 87635; 93005; 93306; 94640; 96374; J0360; J1644; J1940; J7620; U0003

== ENCOUNTER 2019-10-09 12:26 | Emergency (ER) | payer SELFPAY ==
[2019-10-09] MEDS ORDERED: Morphine 4 MG/ML VIAL ONE (12:55)
[2019-10-09] MEDS ORDERED: Nitroglycerin 2% Ointment 1 INCH/1 GM Packet ONE (12:55)
[2019-10-09 13:18] LABS: #Basophils 0.1 thou/uL (0.0-0.2); #Eosinphils 0.5 thou/uL (0.0-0.7); #Lymphocytes 0.9 thou/uL (1.20-3.40); #Monocytes 0.5 thou/uL (0.11-0.59); #Neutrophils 4.3 thou/uL (1.40-6.50); %Basophils 0.9 % (0.0-1.0); %Eosinophils 7.5 % (0.0-10.0); %Lymphocytes 14.3 % (21.0-51.0); %Monocytes 7.7 % (0.0-10.0); %Neutrophils 69.6 % (42.0-75.0); Hemoglobin 11.3 g/dL (14.0-18.0); Mean Corpuscular HGB CONC 32.2 g/dL (32.0-36.0); Mean Corpuscular Hemoglobin 29.6 pg (27.0-31.0); Mean Corpuscular Volume 91.8 fL (78.0-98.0); Mean Platelet Volume 8.1 fL (7.4-10.4); Platelet Count 215 thou/uL (130-400); RBC Distribution Width 15.9 % (11.5-14.5); Red Blood Cell (RBC) Count 3.83 mill/uL (4.70-6.10); White Blood Cell (WBC) Count 6.2 thou/uL (4.8-10.8)
[2019-10-09 13:49] LABS: ALT (SGPT) 115 U/L (8-55); AST (SGOT) 105 U/L (5-34); Albumin 3.7 g/dL (3.5-5.0); Alkaline Phosphatase 128 U/L (40-110); Anion Gap 12 mmol/L (10-20); BUN (Urea Nitrogen) 55 mg/dL (8.9-20.6); Bilirubin, Total 0.5 mg/dL (0.2-1.2); Calc. Creatinine Clearance 0 mL/min (70-130); Calcium 8.3 mg/dL (7.8-10.44); Carbon Dioxide 21 mmol/L (22-29); Chloride 106 mmol/L (98-107); Estimated GFR-MDRD 16; Globulin 3.4 g/dL (2.4-3.5); Glucose 91 mg/dL (70-105); Potassium 4.4 mmol/L (3.5-5.1); Protein, Total 7.1 g/dL (6.0-8.3); Sodium 135 mmol/L (136-145)
[2019-10-09 14:13] LABS: CKMB 8.1 ng/mL (0-6.6)
[2019-10-09 14:17] LABS: Bacteria/HPF None Seen HPF (None Seen); Bilirubin Negative (Negative); Blood, Urine Negative (Negative); Clarity Clear (Clear); Glucose, Urine (Dipstick) Normal (Negative); Ketone, Urine Negative (Negative); Leukocyte 25 Leu/uL (Negative); Nitrite Negative (Negative); Protein, Urine (Dipstick) 100 mg/dL (Neg-Trace); RBC/HPF None Seen HPF (0-3); Specific Gravity, Urine 1.012 (1.002-1.036); Squamous Epithelial None Seen HPF (0-3); Urobilinogen Normal mg/dL (Less than 2); pH, Urine 6.5 (5.0-9.0)
[2019-10-09 14:23] LABS: Medtox Reader # READER 4
[2019-10-09 14:24] LABS: Amphetamine Not Detected (NotDetected); Barbiturates Screen Not Detected (NotDetected); Benzodiazepine Screen Not Detected (NotDetected); Cocaine Metabolite Screen Not Detected (NotDetected); Medtox Control Line Valid? VALID (VALID); Methadone Not Detected (NotDetected); Methamphetamine Not Detected (NotDetected); Opiate Screen Detected (NotDetected); Oxycodone Screen Not Detected (NotDetected); Phencyclidine (PCP) Not Detected (NotDetected); THC/Cannabinoid Screen Detected (NotDetected); Tricyclic Screen Not Detected (NotDetected)
[2019-10-09] MEDS ORDERED: hydrALAZINE 20 MG/ML VIAL ONE (14:38)
[2019-10-09 16:17] LABS: Troponin I 0.045 ng/mL (< 0.028)
[2019-10-09] MEDS ORDERED: Acetaminophen 500 MG TAB ONE (16:55)
--- NOTE | 2019-10-09 20:53 | RAD ---
PORTABLE CHEST 1 VIEW: Date: 10/09/2019 Time: 1253 hours HISTORY: Chest pain. COMPARISON: 10/04/2019. FINDINGS: The heart size is normal. The aorta is tortuous. The lungs are well expanded without focal areas of c onsolidation, pneumothoraces, nevaeh pulmonary edema, or pleural effusions. IMPRESSION: No acute process. POS: ASHWINIA
--- NOTE | 2019-10-13 15:44 | EKG ---
Test Reason : CHESTPAIN Blood Pressure : / mmHG Vent. Rate : 069 BPM Atrial Rate : 069 BPM P-R Int : 122 ms QRS Dur : 096 ms QT Int : 474 ms P-R-T Axes : 058 064 088 degrees QTc Int : 507 ms Normal sinus rhythm Possible Left atrial enlargement Nonspecific ST and T wave abnormality Prolonged QT Abnormal ECG Confirmed by TATIANA BOOGIE DO ([id number]), editor publications KHUSHBOO ALVES ([id number]) on 10/13/2019 3:43:29 PM Referred By: KEAGAN Confirmed By:TATIANA BOOGIE DO
== END 2019-10-09 17:55 | disposition home or self-care (01) ==
LOC: ERS 12:26
DX: R07.9 Chest pain, unspecified (principal); I10 Essential (primary) hypertension; I25.2 Old myocardial infarction; Z86.73 Personal history of transient ischemic attack (TIA), and cerebral infarction without residual deficits; F17.210 Nicotine dependence, cigarettes, uncomplicated
CPT/HCPCS: 36415; 71045; 80053; 80306; 81003; 81015; 82553; 84484; 85025; 93005; 96374; 96375; J0360; J2270

== ENCOUNTER 2019-10-18 19:22 | Inpatient (IN) | payer OTHER, SELFPAY ==
[2019-10-18] MEDS ORDERED: Nitroglycerin 0.4 MG TAB 1 EACH ONE (19:55)
[2019-10-18] MEDS ORDERED: Acetaminophen 500 MG TAB ONE (19:55)
[2019-10-18] MEDS ORDERED: Labetalol HCl 100 MG/20 ML VIAL ONE (19:55)
[2019-10-18 20:20] LABS: #Eosinphils 0.3 thou/uL (0.0-0.7); #Lymphocytes 0.8 thou/uL (1.20-3.40); #Monocytes 0.4 thou/uL (0.11-0.59); #Neutrophils 3.1 thou/uL (1.40-6.50); %Basophils 0.5 % (0.0-1.0); %Eosinophils 6.7 % (0.0-10.0); %Lymphocytes 16.4 % (21.0-51.0); %Monocytes 9.2 % (0.0-10.0); %Neutrophils 67.3 % (42.0-75.0); Mean Corpuscular HGB CONC 32.5 g/dL (32.0-36.0); Mean Corpuscular Hemoglobin 29.7 pg (27.0-31.0); Mean Corpuscular Volume 91.4 fL (78.0-98.0); Mean Platelet Volume 7.8 fL (7.4-10.4); Platelet Count 163 thou/uL (130-400); RBC Distribution Width 15.4 % (11.5-14.5); Red Blood Cell (RBC) Count 3.71 mill/uL (4.70-6.10); White Blood Cell (WBC) Count 4.6 thou/uL (4.8-10.8)
--- NOTE | 2019-10-18 20:22 | RAD ---
Exam: Chest one view HISTORY:Nausea vomiting and pain Comparison: 10/08/2009, 09/17/2019, 10/04/2019 FINDINGS: Cardiac silhouette:Cardiomegaly Aorta: Unremarkable Pulmonary vessels: Normal Costophrenic angles: Clear LUNGS: Chronic changes predominantly the lung bases. No masses or consolidation. Pneumothorax: None Osseous abnormalities: None IMPRESSION: No acute cardiopulmonary process.
[2019-10-18 20:53] LABS: ALT (SGPT) 67 U/L (8-55); AST (SGOT) 67 U/L (5-34); Albumin 3.7 g/dL (3.5-5.0); Alkaline Phosphatase 124 U/L (40-110); Anion Gap 18 mmol/L (10-20); BUN (Urea Nitrogen) 34 mg/dL (8.9-20.6); Bilirubin, Total 0.4 mg/dL (0.2-1.2); Calc. Creatinine Clearance 0 mL/min (70-130); Calcium 7.9 mg/dL (7.8-10.44); Carbon Dioxide 14 mmol/L (22-29); Chloride 107 mmol/L (98-107); Estimated GFR-MDRD 17; Globulin 3.1 g/dL (2.4-3.5); Glucose 78 mg/dL (70-105); Potassium 4.5 mmol/L (3.5-5.1); Protein, Total 6.8 g/dL (6.0-8.3); Sodium 134 mmol/L (136-145)
[2019-10-18 21:04] LABS: CKMB 3.8 ng/mL (0-6.6)
[2019-10-18] MEDS ORDERED: niCARdipine 20MG In NaCl 20 MG/200 ML BAG ONE (22:29)
[2019-10-18] MEDS ORDERED: Dicyclomine 20 MG TAB ONE (22:34)
[2019-10-18] MEDS ORDERED: HYDROcodone/Acetaminophen 5/325 mg Tablet PO PRN (22:57)
--- NOTE | 2019-10-18 23:32 | PDOC.EVN ---
Event Note - Event Note Event Note: [id number] HP
[2019-10-19 00:08] LABS: Troponin I 0.034 ng/mL (< 0.028)
[2019-10-19] MEDS ORDERED: niCARdipine 20MG In NaCl 20 MG/200 ML BAG ONE (00:17)
[2019-10-19] MEDS: Ondansetron ODT 4 MG TAB PO PRN ×2 (01:10→19:02)
[2019-10-19 01:13] VITALS: BMI 24.5
[2019-10-19] MEDS ORDERED: niCARdipine 25 MG in Sodium Chloride 0.9% 250 ML 240 ML IVPB SCH (01:30)
--- NOTE | 2019-10-19 02:07 | HP ---
CHIEF COMPLAINT: Chest pain, nausea and vomiting. HISTORY OF PRESENT ILLNESS: Mr. Chun is a 48-year-old male with past medical history of hypertension, chronic kidney disease stage 4, hepatitis C, cirrhosis, NSTEMI, substance abuse, among others, presents to the emergency room with midsternal chest pain associated with nausea and vomiting and generalized weakness. The patient was recently hospitalized in the hospital for hypertensive crisis requiring ICU admission. In the emergency room, the patient's blood pressure was 190/130. In spite of labetalol and antihypertensive IV given in the emergency room, the patient's blood pressure remained elevated. The patient was started on IV Cardene drip. The patient is being admitted to the Intensive Care for further management. Denies fevers or chills. Tested 2 to 3 times for COVID, which was negative. In the past, lab work, the patient had a creatinine of 3.86, baseline more than 4. Troponin 0.029, downtrending from recent admission. Chest x-ray, no acute findings. The patient is being admitted to the hospital for further management. PAST MEDICAL HISTORY: 1. Hepatitis-C/liver cirrhosis. 2. Hypertension. 3. Non ST-elevation myocardial infarction. 4. Chronic kidney disease, stage 4. 5. Transient ischemic attack. 6. Substance abuse. PAST SURGICAL HISTORY: Reviewed and not pertinent. SOCIAL HISTORY: He cannot use drugs, marijuana, methamphetamine. Smokes cigarettes. Drinks socially. He quit using methamphetamine for the last month. FAMILY HISTORY: Noncontributory. HOME MEDICATIONS: Please see home medication reconciliation for updated medications. ALLERGIES: NO KNOWN ALLERGIES. REVIEW OF SYSTEMS: Review of 14 systems negative except what is mentioned in history of present illness. PHYSICAL EXAMINATION: GENERAL: The patient is awake, alert, in mild distress. VITAL SIGNS: Blood pressure 190/126, pulse 72, respiratory rate is 16, oxygen saturation 95% on room air, temperature 98.3. HEAD AND NECK: Normocephalic, atraumatic. Neck is supple. No JVD. CHEST: Fair bilateral air entry. HEART: S1, S2. Regular. ABDOMEN: Soft, nontender. Bowel sounds present. NEUROLOGIC: Awake, alert, oriented x3. No focal deficits. PSYCH: Unable to assess. EXTREMITIES: No clubbing or cyanosis. LABORATORY DATA: As mentioned above in the history of present illness. IMAGING STUDIES: As mentioned above in the history of present illness. ASSESSMENT: 1. Hypertensive emergency. 2. Acute chest pain. 3. Nausea and vomiting. 4. History of substance abuse. 5. Chronic kidney disease stage 3/4 with acute kidney injury. 6. History of non ST-elevation myocardial infarction. PLAN: 1. Admit to ICU. 2. Continue Cardene drip. 3. Serial troponins. 4. Consult Cardiology in a.m. for evaluation and further recommendations. 5. 2D echo was done recently diastolic dysfunction. 6. Counseling for lifestyle modifications regarding smoking and substance use was started in the ED. 7. Reconcile home medications. 8. Deep venous thrombosis prophylaxis as appropriate. 9. Expected length of stay, 2 midnights or more. Job ID: [id number]
[2019-10-19 03:48] LABS: #Eosinphils 0.4 thou/uL (0.0-0.7); #Lymphocytes 0.8 thou/uL (1.20-3.40); #Monocytes 0.4 thou/uL (0.11-0.59); #Neutrophils 3.6 thou/uL (1.40-6.50); %Basophils 0.5 % (0.0-1.0); %Eosinophils 7.5 % (0.0-10.0); %Lymphocytes 15.4 % (21.0-51.0); %Monocytes 7.9 % (0.0-10.0); %Neutrophils 68.7 % (42.0-75.0); Mean Corpuscular HGB CONC 33.4 g/dL (32.0-36.0); Mean Corpuscular Hemoglobin 30.3 pg (27.0-31.0); Mean Corpuscular Volume 90.8 fL (78.0-98.0); Mean Platelet Volume 8.8 fL (7.4-10.4); Platelet Count 183 thou/uL (130-400); RBC Distribution Width 15.5 % (11.5-14.5); Red Blood Cell (RBC) Count 3.64 mill/uL (4.70-6.10); White Blood Cell (WBC) Count 5.2 thou/uL (4.8-10.8)
[2019-10-19 04:11] LABS: Anion Gap 14 mmol/L (10-20); BUN (Urea Nitrogen) 34 mg/dL (8.9-20.6); Calc. Creatinine Clearance 29 mL/min (70-130); Calcium 8.3 mg/dL (7.8-10.44); Carbon Dioxide 19 mmol/L (22-29); Chloride 106 mmol/L (98-107); Estimated GFR-MDRD 17; Glucose 127 mg/dL (70-105); Potassium 3.2 mmol/L (3.5-5.1); Sodium 136 mmol/L (136-145)
[2019-10-19 04:17] LABS: Troponin I 0.041 ng/mL (< 0.028)
[2019-10-19] MEDS: niCARdipine 50 MG in Sodium Chloride 0.9% 250 ML 230 ML IV SCH ×3 (05:29→12:53)
[2019-10-19] MEDS: Aspirin 325 mg Enteric Coated Tablet PO SCH (08:43)
[2019-10-19] MEDS: Metoprolol Tartrate 25 MG TAB PO SCH ×2 (08:46→20:51)
--- NOTE | 2019-10-19 09:13 | PDOC.HOSPP ---
- Subjective Encounter Date: 10/19/19 Encounter Time: 09:11 Subjective: vague chest pain, sob. nodiscomfort while being examined - Objective Vital Signs & Weight: Vital Signs (12 hours) Temp Pulse Ox 10/19/19 08:00 98.0 F 10/19/19 07:59 94 L 10/19/19 07:34 98.0 F 10/19/19 04:00 98.3 F 10/19/19 01:30 94 L 10/19/19 01:00 98.6 F Weight Weight 185 lb 13.595 oz Most Recent Monitor Data Heart Rate from ECG 85 NIBP 159/96 NIBP BP-Mean 117 Respiration from ECG 22 SpO2 90 I&O: 10/18/19 10/19/19 10/20/19 06:59 06:59 06:59 Intake Total 1021 Output Total 525 Balance 496 Result Diagrams: 10/19/19 03:04 10/19/19 03:04 Hospitalist ROS - Medication Medications: Active Medications Generic Name Dose Route Start Last Admin Trade Name Jayyq PRN Reason Stop Dose Admin Aspirin 325 mg 10/19/19 09:00 10/19/19 08:43 Ecotrin PO 325 mg DAILY SIRI Administration Nicardipine HCl 50 mg/ Sodium 250 mls @ 0 mls/hr 10/19/19 05:30 10/19/19 08: 44 Chloride IV 250 mls INF SIRI Administration Protocol As Directed Metoprolol Tartrate 25 mg 10/19/19 09:00 10/19/19 08:46 Lopressor PO 25 mg BID SIRI Administration Ondansetron HCl 4 mg 10/18/19 22:57 10/19/19 01:10 Zofran Odt PO 4 mg Q6H PRN Administration Nausea/Vomiting - Exam General Appearance: awake alert Neck: no JVD Heart: RRR, no murmur Respiratory - other findings: mildly coare, non-focal exam Gastrointestinal: soft, non-tender, normal bowel sounds Extremities: no edema Hosp A/P (1) Chest pain Code(s): R07.9 - CHEST PAIN, UNSPECIFIED Status: Acute (2) Hypertensive urgency Code(s): I16.0 - HYPERTENSIVE URGENCY Status: Acute (3) CKD (chronic kidney disease), stage IV Code(s): N18.4 - CHRONIC KIDNEY DISEASE, STAGE 4 (SEVERE) Status: Acute (4) Cannabis abuse Code(s): F12.10 - CANNABIS ABUSE, UNCOMPLICATED Status: Acute (5) Tobacco abuse Code(s): Z72.0 - TOBACCO USE Status: Acute (6) Hepatitis C Code(s): B19.20 - UNSPECIFIED VIRAL HEPATITIS C WITHOUT HEPATIC COMA Status: Chronic (7) Transaminitis Code(s): R74.0 - NONSPEC ELEV OF LEVELS OF TRANSAMNS & LACTIC ACID DEHYDRGNSE Status: Chronic - Plan troponin levels chronically elevated due to CKD 4-no further ORTEGA at this time await UDS- Hx amphetimene abuse start home meds tper cardene as appropriate consult nephrology
[2019-10-19] MEDS: Furosemide 20 MG TAB PO SCH (13:00)
[2019-10-19] MEDS: hydrALAZINE 25 MG TAB PO SCH ×3 (13:00→23:15)
[2019-10-19] MEDS: NIFEdipine XL 60 MG TAB PO SCH (13:00)
[2019-10-19] MEDS: cloNIDine 0.1 MG TAB PO SCH ×2 (13:01→20:51)
[2019-10-19] MEDS: Atorvastatin Calcium 40 MG TAB PO SCH (13:01)
--- NOTE | 2019-10-19 14:02 | CON ---
DATE OF CONSULTATION: 10/19/2019 CONSULTING PHYSICIAN: REASON FOR CONSULTATION: Acute kidney injury. REASON FOR ADMISSION: Chest pain. HISTORY OF PRESENT ILLNESS: This is a 48-year-old male with history of chronic kidney disease, hepatitis C, cirrhosis, who came to the hospital with chest pain. He was found to have elevated creatinine. He does have history of chronic kidney disease and substance abuse. The patient is being treated for blood pressure. PAST MEDICAL HISTORY: Positive for hepatitis C, liver cirrhosis, hypertension, coronary artery disease, CKD, transient ischemic attack, and substance abuse. PAST SURGICAL HISTORY: None. HOME MEDICATIONS: Reviewed. ALLERGIES: NO KNOWN DRUG ALLERGIES. SOCIAL HISTORY: History of substance abuse. No alcohol or tobacco use. FAMILY HISTORY: No history of kidney disease. REVIEW OF SYSTEMS: CONSTITUTIONAL: Negative for weight loss or gain, ability to conduct usual activities. SKIN: Negative for rash, itching. EYES: Negative for double vision, pain. ENT/MOUTH: Negative for nose bleeding, neck stiffness, pain, tenderness. CARDIOVASCULAR: Negative for palpitations, dyspnea on exertion, orthopnea. RESPIRATORY: Negative for shortness of breath, wheezing, cough, hemoptysis, fever or night sweats. GASTROINTESTINAL: Negative for poor appetite, abdominal pain, heartburn, nausea, vomiting, constipation, or diarrhea. GENITOURINARY: Negative for urgency, frequency, dysuria, nocturia. MUSCULOSKELETAL: Negative for pain, swelling. NEUROLOGIC/PSYCHIATRIC: Negative for anxiety, depression. ALLERGY/IMMUNOLOGIC: Negative for skin rash, bleeding tendency. PHYSICAL EXAMINATION: GENERAL: This is a well-built male, in no apparent distress. VITAL SIGNS: Temperature 98.5, pulse 73, respiratory rate 18, and blood pressure 144/87 on Cardene drip. HEENT: Atraumatic, normocephalic. Oral mucosa moist. NECK: Supple. CV: S1 and S2. Rate and rhythm regular. RESPIRATORY: Clear. GASTROINTESTINAL: Abdomen is soft. MUSCULOSKELETAL: No tenderness. No edema. DERMATOLOGIC: No skin rash. NEUROLOGIC: Alert and awake. PSYCHIATRIC: Mood and affect normal. LABORATORY DATA: Hemoglobin is 11.0. Potassium 3.2, BUN is 34, and creatinine is 3.8. ASSESSMENT AND PLAN: 1. Chronic kidney disease, stage 4. 2. History of hypertension, currently on Cardene drip for hypertension urgency. 3. Hypokalemia. Replace and monitor. 4. Substance abuse. 5. Edema, controlled. Avoid nephrotoxins. We will follow. Job ID: [id number]
[2019-10-19 14:04] LABS: SARS-CoV-2 MS2 Positive; SARS-CoV-2 N Gene Negative; SARS-CoV-2 S Gene Negative; SARS-CoV-2 by NAA Not Detected (NotDetected); SARS-CoV-2 orf1ab Negative
[2019-10-19 14:17] LABS: Amphetamine Detected (NotDetected); Barbiturates Screen Not Detected (NotDetected); Benzodiazepine Screen Not Detected (NotDetected); Cocaine Metabolite Screen Not Detected (NotDetected); Medtox Control Line Valid? VALID (VALID); Medtox Reader # READER 4; Methadone Not Detected (NotDetected); Methamphetamine Detected (NotDetected); Opiate Screen Not Detected (NotDetected); Oxycodone Screen Not Detected (NotDetected); Phencyclidine (PCP) Not Detected (NotDetected); THC/Cannabinoid Screen Detected (NotDetected); Tricyclic Screen Not Detected (NotDetected)
--- NOTE | 2019-10-19 15:39 | CON ---
DATE OF CONSULTATION: 10/19/2019 INDICATIONS FOR CONSULTATION: This is a 48-year-old patient with poorly controlled hypertension, history of noncompliance, history of illicit drug use with chronic kidney disease stage 4, who presented again with chest pain. He was recently in the hospital approximately 1 month ago. Actually exactly one month ago, he was seen by Dr. Ruiz, complaining of chest discomfort. EKG has remained unremarkable. He has nonspecific elevations of the troponin-I, which is pretty much the same as he has had on every single admission. He has not undergone cardiac catheterization, but has no EKG changes. He has not had the cardiac catheterization due to chronic kidney disease,not yet on dialysis. At this time, he has no chest pain. He said he again was having some discomfort. He also complains of some abdominal discomfort. Otherwise, he seems to be doing quite well. He is alert and oriented. He pretty much stays at home. He does do very much activity. At this time, he seems to be very comfortable on my evaluation. He has had no new complaints on the review of systems, otherwise that would indicate any significant cardiac problems otherwise. PAST MEDICAL HISTORY: Significant for: 1. Chronic kidney disease. 2. Episodes of chronic chest pain. 3. Anemia of chronic disease. 4. Hypertension. 5. Hepatitis C. 6. He has had a TIA in the past. 7. He has hyperlipidemia. 8. He has had continued indeterminate troponin-I elevation. PAST SURGICAL HISTORY: Unremarkable. There is no significant past surgical history. SOCIAL HISTORY: He has used methamphetamines in the past. He denies any tobacco abuse. He recently used marijuana about 2 days ago. He says he has been trying to get off methamphetamines and may not have used any. We will check the urine. FAMILY HISTORY: Noncontributory. MEDICATIONS: Prior to admission, include: 1. Nifedipine 60 mg a day. 2. Coreg 25 mg b.i.d. 3. Atorvastatin 40 mg a day. 4. Hydralazine 100 mg every 6 hours. 5. He also takes aspirin 81 mg a day. 6. Furosemide 20 mg once a day. ALLERGIES: NONE. REVIEW OF SYSTEMS: A 12-point review of systems unremarkable except what was noted in the history of present illness. PHYSICAL EXAMINATION: GENERAL: A well-developed, well-nourished gentleman, who is in no acute distress. He is very weinstein. He has multiple tattoos. He is alert and oriented. VITAL SIGNS: Blood pressure is 144/92, heart rate is 82 and regular, respiratory rate is 13, and O2 saturation is 90%. HEENT: Unremarkable. Carotid pulses are present without bruits. CHEST: Clear to auscultation without rales, rhonchi, or wheezing. CARDIOVASCULAR: Regular rate and rhythm. Normal S1 and S2. No S3 or S4. There were no significant murmurs, heaves, thrills, bruits, or rubs. ABDOMEN: Soft and nontender. Positive bowel sounds are present. There were no masses. EXTREMITIES: No clubbing, cyanosis, or edema. SKIN: Warm and dry. LABORATORY DATA: Troponin-I on admission of 0.029, increased up to now this morning of 0.041, in the past he has had higher elevations, most likely this is due to the episodes of the significant hypertension. When he was in the emergency room, his blood pressure was significantly elevated. His sodium is 136, potassium was 3.2 , BUN was 34 with a creatinine of 3.86, blood sugar was 127. His BNP was 760, which may be due to diastolic dysfunction. He has had a recent echocardiogram also about an hour ago, and his ejection fraction was normal at that time. Hemoglobin was 11, hematocrit was 31.1, WBC of 5.2, and platelet count was 183,000. His echocardiogram on 09/18 on his last admission showed ejection fraction of 60% to 65% with 2/3 diastolic dysfunction with left ventricular hypertrophy as well as dilated left atrium with [id number] mitral valve regurgitation, mild tricuspid valve regurgitation. He also had a slight elevation in the right ventricular systolic pressure at 35 mmHg and mild pulmonary regurgitation also was noted. IMPRESSION: 1. Poorly controlled hypertension, which is under better control at this time on the medications. He is now on a Cardene drip. He has also been given hydralazine. He is continued on his other medications from home. At this time, we will continue to monitor the patient with you, but in the impression #1 is hypertension, which is improving. We will continue to monitor this. We will also assist if necessary with the hospital service. 2. History of illicit drug use. I will check his urine to determine whether or not he is using any amphetamines. 3. History of chronic kidney disease. His creatinine is at 3.86, which is actually relatively stable for him. On his last admission, he was 4.15. He has been as high as 6.42 with his creatinine. 4. Chronic hypokalemia. He is still within normal limits this morning. We will continue to follow this. Should he need potassium supplements, this will be added, actually it is 3.2 today on the low side, when he admitted he was 4.5 and this will need to be monitored and potassium will be added as needed. We will continue his other medications at this time. I do not see an indication for cardiac catheterization thus far with his only slight elevation of the cardiac enzymes with a history of diastolic dysfunction and hypertension with no significant EKG changes to indicate ischemia with chronic kidney disease. We will be more than happy to continue to follow the patient with you. Job ID: [id number] [facility]
[2019-10-19] MEDS: Carvedilol 25 MG TAB PO SCH (17:31)
--- NOTE | 2019-10-19 20:45 | CON ---
DATE OF CONSULTATION: 10/19/2019 HISTORY OF PRESENT ILLNESS: Mr. Chun is a 48-year-old male. He lives in [place]. He tells me he has no vehicle, no family, and no friends. He says he ran out of his blood pressure medicines. He very quickly tells me he has no way of getting medicine almost to the point of being verbally confrontational about it. He was admitted with hypertensive urgency, he is on Cardene and he is clinically improving. PAST MEDICAL HISTORY: Remarkable for; 1. Cirrhosis. 2. History of hepatitis C. 3. History of hypertension. 4. History of UTI in the past. 5. Lipid disorder. SOCIAL HISTORY: He is a methamphetamine user in the past. 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 He smokes marijuana as well. Drug screen is still positive for cannabinoids and methamphetamine. FAMILY HISTORY: Negative for lung disease in early age. REVIEW OF SYSTEMS: Otherwise negative. PHYSICAL EXAMINATION: GENERAL: Blood pressure 152/84, heart rate 78, respiratory rate 17, and oximetry is 92. HEAD AND NECK: Unremarkable. He is covered in tattoos that resemble the presence of tattoos. I have seen when I worked at the [facility]. Neck is supple. LUNGS: Remarkable for coarse equal breath sounds. HEART: Regular rhythm. ABDOMEN: Soft. EXTREMITIES: Without edema. IMPRESSION AND PLAN: 1. Hypertensive urgency. 2. Ongoing methamphetamine use. 3. Ongoing tobacco use. I doubt seriously this is a fixable problem. Blood pressure needs to be controlled. He needs to be given his prescriptions and he needs to be discharged as soon as he is on p.o. medications in my opinion. It is highly likely he will continue to use methamphetamine, he will have problems with his blood pressure. This is a 70 min visit with greater than 50% of time spent on unit with coordination of care. Job ID: [id number] [facility]
[2019-10-19] MEDS: Acetaminophen 325 MG TAB PO PRN (20:52)
[2019-10-20] MEDS: hydrALAZINE 25 MG TAB PO SCH ×4 (05:18→23:29)
[2019-10-20 06:30] LABS: #Eosinphils 0.3 thou/uL (0.0-0.7); #Lymphocytes 0.7 thou/uL (1.20-3.40); #Monocytes 0.4 thou/uL (0.11-0.59); #Neutrophils 4.2 thou/uL (1.40-6.50); %Basophils 0.3 % (0.0-1.0); %Eosinophils 4.8 % (0.0-10.0); %Lymphocytes 12.5 % (21.0-51.0); %Monocytes 6.3 % (0.0-10.0); %Neutrophils 76.1 % (42.0-75.0); Hemoglobin 9.8 g/dL (14.0-18.0); Mean Corpuscular HGB CONC 31.1 g/dL (32.0-36.0); Mean Corpuscular Hemoglobin 28.8 pg (27.0-31.0); Mean Corpuscular Volume 92.6 fL (78.0-98.0); Mean Platelet Volume 8.7 fL (7.4-10.4); Platelet Count 162 thou/uL (130-400); RBC Distribution Width 15.4 % (11.5-14.5); Red Blood Cell (RBC) Count 3.41 mill/uL (4.70-6.10); White Blood Cell (WBC) Count 5.5 thou/uL (4.8-10.8)
[2019-10-20 06:49] LABS: Anion Gap 14 mmol/L (10-20); BUN (Urea Nitrogen) 34 mg/dL (8.9-20.6); Calc. Creatinine Clearance 30 mL/min (70-130); Calcium 8.1 mg/dL (7.8-10.44); Carbon Dioxide 17 mmol/L (22-29); Chloride 107 mmol/L (98-107); Estimated GFR-MDRD 18; Glucose 91 mg/dL (70-105); Potassium 3.6 mmol/L (3.5-5.1); Sodium 134 mmol/L (136-145)
[2019-10-20] MEDS: Carvedilol 25 MG TAB PO SCH ×2 (07:32→17:11)
[2019-10-20] MEDS: Aspirin 325 mg Enteric Coated Tablet PO SCH (07:32)
[2019-10-20] MEDS: Atorvastatin Calcium 40 MG TAB PO SCH (08:15)
[2019-10-20] MEDS: NIFEdipine XL 60 MG TAB PO SCH (08:15)
[2019-10-20] MEDS: cloNIDine 0.1 MG TAB PO SCH ×2 (08:15→20:16)
[2019-10-20] MEDS: Metoprolol Tartrate 25 MG TAB PO SCH ×2 (08:15→20:16)
[2019-10-20] MEDS: Furosemide 20 MG TAB PO SCH (08:15)
--- NOTE | 2019-10-20 13:31 | PRG ---
DATE OF SERVICE: 10/20/2019 SUBJECTIVE: Patient was seen and examined at bedside and overnight events noted. Patient denies any shortness of breath or chest pain or palpitation. No history of nausea or vomiting or diarrhea or fever or chills or cramps. OBJECTIVE: GENERAL: This is a well-built male, in no apparent distress. VITAL SIGNS: Temperature 98.1. Heart rate 68. Respiratory rate 18. Blood pressure 137/83. HEENT: Atraumatic, normocephalic. Oral mucosa is moist NECK: Supple. CARDIOVASCULAR: S1, S2 heard. Rate and rhythm regular. RESPIRATORY: Clear to auscultation. GASTROINTESTINAL: Abdomen is soft. MUSCULOSKELETAL: No tenderness. No edema. DERMATOLOGIC: No skin rash. NEUROLOGIC: Alert and awake and oriented X3. No focal neurologic deficits. Moving all the extremities. PSYCHIATRIC: Mood and affect normal. LABORATORY DATA: Potassium 3.6, BUN is 34, and creatinine is 3.6. ASSESSMENT AND PLAN: 1. Chronic kidney disease, stage 4, stable. 2. Hypertension, better. 3. Hypokalemia, replaced. 4. Substance abuse, Counseled. 5. Edema, controlled. Renal function is stable. Monitor renal function. Job ID: [id number]
--- NOTE | 2019-10-20 16:48 | PDOC.HOSPP ---
- Subjective Encounter Date: 10/20/19 Encounter Time: 16:45 Subjective: f/u for HTN urgency/polysubstance abuse with Meth/Cannabis now transferred to medical floor. - Objective Vital Signs & Weight: Vital Signs (12 hours) Temp Pulse BP Pulse Ox 10/20/19 12:20 97 10/20/19 11:42 68 137/63 10/20/19 11:00 98.1 F 10/20/19 08:15 72 145/92 H 10/20/19 07:40 93 L 10/20/19 07:00 98.8 F 10/20/19 05:18 75 143/87 H Weight Weight 185 lb 13.595 oz Most Recent Monitor Data Heart Rate from ECG 70 NIBP 137/83 NIBP BP-Mean 101 Respiration from ECG 16 SpO2 94 I&O: 10/19/19 10/20/19 10/21/19 06:59 06:59 06:59 Intake Total 1021 2474 1040 Output Total 525 2180 350 Balance 496 294 690 Result Diagrams: 10/20/19 06:20 10/20/19 06:20 Additional Labs: Laboratory Tests 10/04/19 10/09/19 10/18/19 17:13 12:54 20:08 Hgb 11.0 L Sodium Potassium BUN Creatinine AST 74 H 105 H ALT 78 H 115 H Troponin I Ur Amphetamines Screen U Methamphetamines Scrn U Cannabinoids Screen COVID-19 PCR 10/18/19 10/18/19 10/18/19 20:08 20:08 23:35 Hgb Sodium 134 L Potassium 4.5 BUN 34 H Creatinine 3.86 H AST 67 H ALT 67 H Troponin I 0.029 H 0.034 H Ur Amphetamines Screen U Methamphetamines Scrn U Cannabinoids Screen COVID-19 PCR 10/19/19 10/19/19 10/19/19 00:25 03:04 03:04 Hgb Sodium 136 Potassium 3.2 L BUN 34 H Creatinine 3.86 H AST ALT Troponin I 0.041 H Ur Amphetamines Screen U Methamphetamines Scrn U Cannabinoids Screen COVID-19 PCR Not Detected 10/19/19 10/19/19 03:04 13:30 Hgb 11.0 L Sodium Potassium BUN Creatinine AST ALT Troponin I Ur Amphetamines Screen Detected H U Methamphetamines Scrn Detected H U Cannabinoids Screen Detected H COVID-19 PCR Radiology Reviewed by me: Yes (PCXR - no acute infiltrate) Hospitalist ROS - Medication Medications: Active Medications Generic Name Dose Route Start Last Admin Trade Name Freq PRN Reason Stop Dose Admin Acetaminophen 650 mg 10/18/19 22:57 10/19/19 20:52 Tylenol PO 650 mg Q4H PRN Administration Headache/Fever/Mild Pain (1-3) Aspirin 325 mg 10/19/19 09:00 10/20/19 07:32 Ecotrin PO 325 mg DAILY SIRI Administration Atorvastatin Calcium 40 mg 10/19/19 09:00 10/20/19 08:15 Lipitor PO 40 mg DAILY SIRI Administration Carvedilol 25 mg 10/19/19 17:00 10/20/19 07:32 Coreg PO 25 mg BID-WM SIRI Administration Clonidine 0.1 mg 10/19/19 09:00 10/20/19 08:15 Catapres PO 0.1 mg BID SIRI Administration Furosemide 20 mg 10/19/19 09:00 10/20/19 08:15 Lasix PO 20 mg DAILY SIRI Administration Hydralazine HCl 100 mg 10/19/19 12:00 10/20/19 11:42 Apresoline PO 100 mg Q6HR SIRI Administration Nicardipine HCl 50 mg/ Sodium 250 mls @ 0 mls/hr 10/19/19 05:30 10/19/19 12: 53 Chloride IV 250 mls INF SIRI Administration Protocol As Directed Metoprolol Tartrate 25 mg 10/19/19 09:00 10/20/19 08:15 Lopressor PO 25 mg BID SIRI Administration Nifedipine 60 mg 10/19/19 09:00 10/20/19 08:15 Procardia Xl PO 60 mg DAILY SIRI Administration Ondansetron HCl 4 mg 10/18/19 22:57 10/19/19 19:02 Zofran Odt PO 4 mg Q6H PRN Administration Nausea/Vomiting Sodium Chloride 10 ml 10/19/19 01:35 10/20/19 08:16 Flush - Normal Saline IVF 10 ml PRN PRN Administration Saline Flush - Exam General Appearance: NAD, awake alert Eye: PERRL, anicteric sclera ENT: normocephalic atraumatic, no oropharyngeal lesions Neck: supple, symmetric, no JVD, no thyromegaly, no lymphadenopathy Heart: RRR, no murmur, no gallops, no rubs, normal peripheral pulses Heart - other findings: S1, S2 Respiratory: CTAB, no wheezes, no rales, no ronchi, normal chest expansion, no tachypnea Gastrointestinal: soft, non-tender, non-distended, normal bowel sounds, no palpable masses Extremities: no cyanosis, no clubbing, no edema Skin: normal turgor Neurological: cranial nerve grossly intact, no new deficit Musculoskeletal: normal tone, normal strength, no muscle wasting Psychiatric: normal affect, A&O x 3 Hosp A/P (1) Hypertensive urgency Code(s): I16.0 - HYPERTENSIVE URGENCY Status: Acute Plan: Resolved, continue current BP regimen, CM for assistance with outpt medications (2) CKD (chronic kidney disease), stage IV Code(s): N18.4 - CHRONIC KIDNEY DISEASE, STAGE 4 (SEVERE) Status: Chronic Plan: Stable renal function, serial monitoring, avoid nephrotoxic meds and limit contrast (3) Cannabis abuse Code(s): F12.10 - CANNABIS ABUSE, UNCOMPLICATED Status: Chronic (4) Amphetamine abuse Code(s): F15.10 - OTHER STIMULANT ABUSE, UNCOMPLICATED Status: Chronic (5) Transaminitis Code(s): R74.0 - NONSPEC ELEV OF LEVELS OF TRANSAMNS & LACTIC ACID DEHYDRGNSE Status: Chronic Plan: chronic elevation after review of EMR dating to 2011 - Plan medical social consultant, out of bed/ambulate, DVT proph w/SCDs Stable currently Continue Coreg/Nifedipine/Lasix/Hydralazine CM assistance for home meds OOB/ambulate Cessation resources for substance abuse
[2019-10-20] MEDS: Acetaminophen 325 MG TAB PO PRN (20:16)
[2019-10-21] MEDS: hydrALAZINE 25 MG TAB PO SCH ×4 (05:15→23:12)
[2019-10-21] MEDS: NIFEdipine XL 60 MG TAB PO SCH (08:04)
[2019-10-21] MEDS: Carvedilol 25 MG TAB PO SCH ×2 (08:04→18:01)
[2019-10-21] MEDS: Furosemide 20 MG TAB PO SCH (08:04)
[2019-10-21] MEDS: Metoprolol Tartrate 25 MG TAB PO SCH ×2 (08:04→20:33)
[2019-10-21] MEDS: Aspirin 325 mg Enteric Coated Tablet PO SCH (08:05)
[2019-10-21] MEDS: Atorvastatin Calcium 40 MG TAB PO SCH (08:05)
[2019-10-21] MEDS: cloNIDine 0.1 MG TAB PO SCH ×2 (08:05→20:38)
--- NOTE | 2019-10-21 10:21 | PRG ---
DATE OF SERVICE: 10/20/2019 SUBJECTIVE: Mr. Chun was evaluated in the ICU. His blood pressure stabilized. He is off IV drip support. I discussed his positive drug screen with him. He denied using methamphetamine. When I reminded him that he admitted to another physician that he was still using methamphetamine, his answer was basically . He has no new complaints. OBJECTIVE: LUNGS: Clear. HEART: Regular rhythm. ABDOMEN: Soft. IMPRESSION: 1. Chronic methamphetamine use, ongoing. 2. Uncontrolled hypertension secondary to medical noncompliance. His prognosis short-term is dismal because of noncompliance and ongoing drug use. He is stable for discharge home in my opinion. Job ID: [id number]
--- NOTE | 2019-10-21 11:50 | PDOC.HOSPP ---
- Subjective Encounter Date: 10/21/19 Encounter Time: 11:50 Subjective: f/u for HTN urgency and non-compliance with home BP regimen and ongoing polysubstance abuse. Feels better overall and awaiting assistance with coordination for home medication and outpt follow up care. - Objective Vital Signs & Weight: Vital Signs (12 hours) Temp Pulse Resp BP BP BP Pulse Ox 10/21/19 08:05 150/83 H 10/21/19 08:04 66 150/83 H 10/21/19 07:23 97.9 F 66 17 149/85 H 96 10/21/19 05:15 66 158/87 H 10/21/19 03:59 98.4 F 66 18 158/87 H 95 Weight Weight 185 lb 13.595 oz Most Recent Monitor Data Heart Rate from ECG 70 NIBP 137/83 NIBP BP-Mean 101 Respiration from ECG 16 SpO2 94 I&O: 10/20/19 10/21/19 10/22/19 06:59 06:59 06:59 Intake Total 2474 2040 Output Total 2180 1450 Balance 294 590 Result Diagrams: 10/20/19 06:20 10/20/19 06:20 Additional Labs: Laboratory Tests 10/04/19 10/09/19 10/18/19 17:13 12:54 20:08 Hgb 11.0 L Sodium Potassium BUN Creatinine AST 74 H 105 H ALT 78 H 115 H Troponin I Ur Amphetamines Screen U Methamphetamines Scrn U Cannabinoids Screen COVID-19 PCR 10/18/19 10/18/19 10/18/19 20:08 20:08 23:35 Hgb Sodium 134 L Potassium 4.5 BUN 34 H Creatinine 3.86 H AST 67 H ALT 67 H Troponin I 0.029 H 0.034 H Ur Amphetamines Screen U Methamphetamines Scrn U Cannabinoids Screen COVID-19 PCR 10/19/19 10/19/19 10/19/19 00:25 03:04 03:04 Hgb Sodium 136 Potassium 3.2 L BUN 34 H Creatinine 3.86 H AST ALT Troponin I 0.041 H Ur Amphetamines Screen U Methamphetamines Scrn U Cannabinoids Screen COVID-19 PCR Not Detected 10/19/19 10/19/19 03:04 13:30 Hgb 11.0 L Sodium Potassium BUN Creatinine AST ALT Troponin I Ur Amphetamines Screen Detected H U Methamphetamines Scrn Detected H U Cannabinoids Screen Detected H COVID-19 PCR Hospitalist ROS - Medication Medications: Active Medications Generic Name Dose Route Start Last Admin Trade Name Freq PRN Reason Stop Dose Admin Acetaminophen 650 mg 10/18/19 22:57 10/20/19 20:16 Tylenol PO 650 mg Q4H PRN Administration Headache/Fever/Mild Pain (1-3) Aspirin 325 mg 10/19/19 09:00 10/21/19 08:05 Ecotrin PO 325 mg DAILY SIRI Administration Atorvastatin Calcium 40 mg 10/19/19 09:00 10/21/19 08:05 Lipitor PO 40 mg DAILY SIRI Administration Carvedilol 25 mg 10/19/19 17:00 10/21/19 08:04 Coreg PO 25 mg BID-WM SIRI Administration Clonidine 0.1 mg 10/19/19 09:00 10/21/19 08:05 Catapres PO 0.1 mg BID SIRI Administration Furosemide 20 mg 10/19/19 09:00 10/21/19 08:04 Lasix PO 20 mg DAILY SIRI Administration Hydralazine HCl 100 mg 10/19/19 12:00 10/21/19 05:15 Apresoline PO 100 mg Q6HR SIRI Administration Nicardipine HCl 50 mg/ Sodium 250 mls @ 0 mls/hr 10/19/19 05:30 10/19/19 12: 53 Chloride IV 250 mls INF SIRI Administration Protocol As Directed Metoprolol Tartrate 50 mg 10/21/19 09:00 10/21/19 08:04 Lopressor PO 50 mg BID SIRI Administration Nifedipine 60 mg 10/19/19 09:00 10/21/19 08:04 Procardia Xl PO 60 mg DAILY SIRI Administration Ondansetron HCl 4 mg 10/18/19 22:57 10/19/19 19:02 Zofran Odt PO 4 mg Q6H PRN Administration Nausea/Vomiting Sodium Chloride 10 ml 10/19/19 01:35 10/20/19 08:16 Flush - Normal Saline IVF 10 ml PRN PRN Administration Saline Flush - Exam General Appearance: NAD, awake alert Eye: PERRL, anicteric sclera ENT: normocephalic atraumatic, no oropharyngeal lesions Neck: supple, symmetric, no JVD, no thyromegaly, no lymphadenopathy Heart: RRR, no murmur, no gallops, no rubs, normal peripheral pulses Heart - other findings: S1, S2 Respiratory: CTAB, no wheezes, no rales, no ronchi, normal chest expansion, no tachypnea Gastrointestinal: soft, non-tender, non-distended, normal bowel sounds, no palpable masses Extremities: no cyanosis, no clubbing, no edema Skin: normal turgor, no lesions Neurological: cranial nerve grossly intact, no new deficit Musculoskeletal: normal tone, normal strength, no muscle wasting Psychiatric: normal affect, A&O x 3 Hosp A/P (1) Hypertensive urgency Code(s): I16.0 - HYPERTENSIVE URGENCY Status: Acute Plan: Resolved, continue titration of BP regimen (2) CKD (chronic kidney disease), stage IV Code(s): N18.4 - CHRONIC KIDNEY DISEASE, STAGE 4 (SEVERE) Status: Chronic Plan: Stable currently, continue serial monitoring, consult Nephrology service (3) Cannabis abuse Code(s): F12.10 - CANNABIS ABUSE, UNCOMPLICATED Status: Chronic (4) Amphetamine abuse Code(s): F15.10 - OTHER STIMULANT ABUSE, UNCOMPLICATED Status: Chronic (5) Transaminitis Code(s): R74.0 - NONSPEC ELEV OF LEVELS OF TRANSAMNS & LACTIC ACID DEHYDRGNSE Status: Chronic - Plan social sciences instructor, out of bed/ambulate, DVT proph w/SCDs Stable currently Continue Coreg/Nifedipine/Lasix/Hydralazine CM assistance for home meds/PCP follow up OOB/ambulate Cessation resources for substance abuse AM lab: BMP
--- NOTE | 2019-10-21 14:10 | PRG ---
DATE OF SERVICE: 10/21/2019 SUBJECTIVE: Patient was seen and examined at bedside and overnight events noted. Patient denies any shortness of breath or chest pain or palpitation. No history of nausea or vomiting or diarrhea or fever or chills or cramps. OBJECTIVE: GENERAL: This is well-built male, in no apparent distress. VITAL SIGNS: Temperature 97.5. Heart Rate 57. Respiratory rate 16. Blood pressure 171/104. HEENT: Atraumatic, normocephalic. Oral mucosa is moist. NECK: Supple. CARDIOVASCULAR: S1, S2 heard. Rate and rhythm regular. RESPIRATORY: Clear to auscultation. GASTROINTESTINAL: Abdomen is soft. MUSCULOSKELETAL: No tenderness. No edema. DERMATOLOGIC: No skin rash. NEUROLOGIC: Alert and awake and oriented x3. No focal neurologic deficits. Moving all the extremities. PSYCHIATRIC: Mood and affect normal. LABORATORY DATA: Not done today. ASSESSMENT AND PLAN: 1. Chronic kidney disease, stage 4, stable. 2. Hypertension. 3. Hypokalemia. 4. Substance abuse. 5. Edema, controlled. Labs seem to be stable. Okay to discharge home. Follow up with the clinic in 2 to 4 weeks. Job ID: [id number]
[2019-10-21] MEDS: Nicotine 21 MG PATCH TOP SCH (20:33)
[2019-10-21] MEDS: Acetaminophen 325 MG TAB PO PRN (20:34)
[2019-10-22] MEDS: hydrALAZINE 20 MG/ML VIAL SLOW IVP PRN ×4 (02:06→13:05)
[2019-10-22] MEDS: Acetaminophen 325 MG TAB PO PRN (05:31)
[2019-10-22] MEDS: hydrALAZINE 25 MG TAB PO SCH ×3 (05:34→18:40)
[2019-10-22 06:15] LABS: Anion Gap 15 mmol/L (10-20); BUN (Urea Nitrogen) 40 mg/dL (8.9-20.6); Calc. Creatinine Clearance 30 mL/min (70-130); Calcium 8.3 mg/dL (7.8-10.44); Carbon Dioxide 16 mmol/L (22-29); Chloride 106 mmol/L (98-107); Estimated GFR-MDRD 18; Glucose 86 mg/dL (70-105); Potassium 3.9 mmol/L (3.5-5.1); Sodium 133 mmol/L (136-145)
[2019-10-22] MEDS: Aspirin 325 mg Enteric Coated Tablet PO SCH (09:23)
[2019-10-22] MEDS: Carvedilol 25 MG TAB PO SCH ×2 (09:24→18:41)
[2019-10-22] MEDS: Furosemide 20 MG TAB PO SCH (09:24)
[2019-10-22] MEDS: Atorvastatin Calcium 40 MG TAB PO SCH (09:24)
[2019-10-22] MEDS: Metoprolol Tartrate 25 MG TAB PO SCH (09:24)
[2019-10-22] MEDS: NIFEdipine XL 60 MG TAB PO SCH (09:24)
[2019-10-22] MEDS: cloNIDine 0.1 MG TAB PO SCH ×2 (09:24→20:50)
--- NOTE | 2019-10-22 11:48 | PDOC.CPN ---
- Subjective Date: 10/22/19 Time: 11:46 Interval history: He feels well. No chest pain on my evaluation. Comfortable on the bed. BP still high. - Review of Systems General: denies: fever/chills, weight/appetite/sleep changes, night sweats, fatigue Respiratory: denies: cough, congestion, shortness of breath, exercise intolerance Cardiovascular: denies: chest pain, palpitation, edema, paroxysmal nocturnal dyspnea, orthopnea Gastrointestinal: denies: nausea, vomiting, diarrhea, constipation, abd pain, GI bleeding Musculoskeletal: denies: pain, tenderness, stiffness, swelling, arthritis/ arthralgias Neurological: denies: numbness, syncope, seizure, weakness - Objective Allergies/Adverse Reactions: Allergies Allergy/AdvReac Type Severity Reaction Status Date / Time No Known Allergies Allergy Verified 10/05/19 00:50 Visit Medications: Current Medications Acetaminophen (Tylenol) 650 mg PO Q4H PRN PRN Reason: Headache/Fever/Mild Pain (1-3) Last Admin: 10/22/19 05:31 Dose: 650 mg Hydrocodone Bitart/Acetaminophen ([place] 5/325) 1 tab PO Q4H PRN PRN Reason: Moderate Pain (4-6) Aspirin (Ecotrin) 325 mg PO DAILY [facility] Last Admin: 10/22/19 09:23 Dose: 325 mg Atorvastatin Calcium (Lipitor) 40 mg PO DAILY [facility] Last Admin: 10/22/19 09:24 Dose: 40 mg Carvedilol (Coreg) 25 mg PO BID-[facility] Last Admin: 10/22/19 09:24 Dose: 25 mg Clonidine (Catapres) 0.1 mg PO BID [facility] Last Admin: 10/22/19 09:24 Dose: 0.1 mg Furosemide (Lasix) 20 mg PO DAILY [facility] Last Admin: 10/22/19 09:24 Dose: 20 mg Hydralazine HCl (Apresoline) 100 mg PO Q6HR [facility] Last Admin: 10/22/19 05:34 Dose: 100 mg Hydralazine HCl (Apresoline) 20 mg SLOW IVP Q4H PRN PRN Reason: SBP Greater Than 170 Last Admin: 10/22/19 09:30 Dose: 20 mg Nicardipine HCl 50 mg/ Sodium (Chloride) 250 mls @ 0 mls/hr IV INF SIRI; Protocol Last Admin: 10/19/19 12:53 Dose: 250 mls Nicotine (Nicoderm Patch) 21 mg TOP Q24HR [facility]IRI Last Admin: 10/21/19 20:33 Dose: 21 mg Nifedipine (Procardia Xl) 120 mg PO DAILY [facility] Ondansetron HCl (Zofran Odt) 4 mg PO Q6H PRN PRN Reason: Nausea/Vomiting Last Admin: 10/19/19 19:02 Dose: 4 mg Sodium Chloride (Flush - Normal Saline) 10 ml IVF PRN PRN PRN Reason: Saline Flush Last Admin: 10/20/19 08:16 Dose: 10 ml Vital Signs & Weight: Vital Signs Temp Pulse Resp BP BP BP Pulse Ox 10/22/19 11:17 98.0 F 55 L 16 202/129 H 98 10/22/19 09:30 60 10/22/19 09:24 60 180/78 H 10/22/19 07:26 98.2 F 60 16 226/124 H 98 10/22/19 06:14 65 180/78 H 10/22/19 05:34 60 174/93 H 10/22/19 02:06 60 174/93 H 10/22/19 00:00 98.8 F 60 18 174/92 H 96 Weight 185 lb 13.595 oz - Physical Exam General: alert & oriented x3 HEENT: mucus membranes moist Neck: supple neck Cardiac: regular rate and rhythm Lungs: normal breath sounds Neuro: grossly intact Abdomen: active bowel sounds Extremities: no edema Skin: clear Musculoskeletal: no pain - Labs Result Diagrams: 10/20/19 06:20 10/22/19 05:16 Troponin/CKMB CK-MB (CK-2) 3.8 ng/mL (0-6.6) 10/18/19 20:08 Troponin I 0.041 ng/mL (< 0.028) H 10/19/19 03:04 - Telemetry Sinus rhythms and dysrhythmias: sinus rhythm - Assessment/Plan Assessment/Plan: 1. Hypertensive urgency 2. Methaomphetamine use, ongoing 3. Non compliance. PLAN: - Continue other meds. - Will stop Metoprolol as he is already on COreg - Will increase nifedipine and will increase clonidine. - Counseled on cessation. He states he last used a week ago.
--- NOTE | 2019-10-22 11:55 | PRG ---
DATE OF SERVICE: 10/22/2019 SUBJECTIVE: 48-year-old gentleman being seen for acute kidney injury. The patient denied nausea, vomiting, or chest pain. OBJECTIVE: GENERAL: The patient is awake and alert. VITAL SIGNS: Afebrile, pulse 70, breathing at 16, blood pressure was 180/70. HEENT: Head normocephalic and atraumatic. Eyes intact, no ulcers. Nose intact, no ulcers. Ears intact, no ulcers. NECK: Supple. No JVD. CHEST: Symmetrical and clear. CARDIOVASCULAR: Shows S1 and S2, no rub, no murmur. GASTROINTESTINAL: Abdomen is soft, bowel sounds positive. EXTREMITIES: Show no edema or ulcers. SKIN: Shows no rash or petechiae. MUSCULOSKELETAL: Shows no joint swelling or stiffness. GENITOURINARY: Shows no Anton or CVA tenderness. NEUROLOGIC: Motor intact. Cranial nerves intact. LABORATORY DATA: Reviewed. ASSESSMENT AND PLAN: 1. Stage 4 chronic kidney disease, stable. 2. Hypertension, titrate home medication. 3. Anemia, stable. The patient can get high dose of nifedipine (Procardia XL 90). Job ID: [id number]
[2019-10-22] MEDS ORDERED: cloNIDine 0.1 MG TAB PO SCH (12:00)
[2019-10-22] MEDS ORDERED: NIFEdipine XL 60 MG TAB PO SCH (12:00)
--- NOTE | 2019-10-22 13:28 | PDOC.HOSPP ---
- Subjective Encounter Date: 10/22/19 Encounter Time: 13:25 Subjective: f/u for HTN urgency, non-compliance, tobacco abuse. States feeling ok overall. BP remains labile per nursing. - Objective Vital Signs & Weight: Vital Signs (12 hours) Temp Pulse Resp BP BP BP Pulse Ox 10/22/19 13:05 55 L 10/22/19 13:04 55 L 180/78 H 10/22/19 11:17 98.0 F 55 L 16 202/129 H 98 10/22/19 09:30 60 10/22/19 09:24 60 180/78 H 10/22/19 07:26 98.2 F 60 16 226/124 H 98 10/22/19 06:14 65 180/78 H 10/22/19 05:34 60 174/93 H 10/22/19 02:06 60 174/93 H Weight Weight 185 lb 13.595 oz Most Recent Monitor Data Heart Rate from ECG 70 NIBP 137/83 NIBP BP-Mean 101 Respiration from ECG 16 SpO2 94 I&O: 10/21/19 10/22/19 10/23/19 06:59 06:59 06:59 Intake Total 2040 800 Output Total 1450 850 Balance 590 -50 Result Diagrams: 10/20/19 06:20 10/22/19 05:16 Additional Labs: Laboratory Tests 10/04/19 10/09/19 10/18/19 17:13 12:54 20:08 Hgb 11.0 L Sodium Potassium BUN Creatinine AST 74 H 105 H ALT 78 H 115 H Troponin I Ur Amphetamines Screen U Methamphetamines Scrn U Cannabinoids Screen COVID-19 PCR 10/18/19 10/18/19 10/18/19 20:08 20:08 23:35 Hgb Sodium 134 L Potassium 4.5 BUN 34 H Creatinine 3.86 H AST 67 H ALT 67 H Troponin I 0.029 H 0.034 H Ur Amphetamines Screen U Methamphetamines Scrn U Cannabinoids Screen COVID-19 PCR 10/19/19 10/19/19 10/19/19 00:25 03:04 03:04 Hgb Sodium 136 Potassium 3.2 L BUN 34 H Creatinine 3.86 H AST ALT Troponin I 0.041 H Ur Amphetamines Screen U Methamphetamines Scrn U Cannabinoids Screen COVID-19 PCR Not Detected 10/19/19 10/19/19 03:04 13:30 Hgb 11.0 L Sodium Potassium BUN Creatinine AST ALT Troponin I Ur Amphetamines Screen Detected H U Methamphetamines Scrn Detected H U Cannabinoids Screen Detected H COVID-19 PCR Hospitalist ROS - Medication Medications: Active Medications Generic Name Dose Route Start Last Admin Trade Name Freq PRN Reason Stop Dose Admin Acetaminophen 650 mg 10/18/19 22:57 10/22/19 05:31 Tylenol PO 650 mg Q4H PRN Administration Headache/Fever/Mild Pain (1-3) Aspirin 325 mg 10/19/19 09:00 10/22/19 09:23 Ecotrin PO 325 mg DAILY SIRI Administration Atorvastatin Calcium 40 mg 10/19/19 09:00 10/22/19 09:24 Lipitor PO 40 mg DAILY SIRI Administration Carvedilol 25 mg 10/19/19 17:00 10/22/19 09:24 Coreg PO 25 mg BID-[facility] SIRI Administration Clonidine 0.2 mg 10/22/19 12:00 10/22/19 13:04 Catapres PO 10/22/19 14:00 0.2 mg 1200 SIRI Administration Furosemide 20 mg 10/19/19 09:00 10/22/19 09:24 Lasix PO 20 mg DAILY SIRI Administration Hydralazine HCl 100 mg 10/19/19 12:00 10/22/19 13:05 Apresoline PO 100 mg Q6HR SIRI Administration Hydralazine HCl 20 mg 10/21/19 16:45 10/22/19 13:05 Apresoline SLOW IVP 20 mg Q4H PRN Administration SBP Greater Than 170 Nicardipine HCl 50 mg/ Sodium 250 mls @ 0 mls/hr 10/19/19 05:30 10/19/19 12: 53 Chloride IV 250 mls INF SIRI Administration Protocol As Directed Nicotine 21 mg 10/21/19 20:00 10/21/19 20:33 Nicoderm Patch TOP 21 mg Q24HR SIRI Administration Nifedipine 60 mg 10/22/19 12:00 10/22/19 13:04 Procardia Xl PO 10/22/19 14:00 60 mg 1200 SIRI Administration Ondansetron HCl 4 mg 10/18/19 22:57 10/19/19 19:02 Zofran Odt PO 4 mg Q6H PRN Administration Nausea/Vomiting Sodium Chloride 10 ml 10/19/19 01:35 09/05/20 08:16 Flush - Normal Saline IVF 10 ml PRN PRN Administration Saline Flush - Exam General Appearance: NAD, awake alert Eye: PERRL, anicteric sclera ENT: normocephalic atraumatic, no oropharyngeal lesions Neck: supple, symmetric, no JVD, no thyromegaly, no lymphadenopathy Heart: RRR, no gallops, no rubs, normal peripheral pulses Heart - other findings: S1, S2 Respiratory: CTAB, no rales, no ronchi, normal chest expansion Respiratory - other findings: occ wheeze Gastrointestinal: soft, non-tender, non-distended, normal bowel sounds, no palpable masses Extremities: no cyanosis, no clubbing, no edema Skin: normal turgor, no lesions Neurological: cranial nerve grossly intact, no new deficit Musculoskeletal: normal tone, normal strength, no muscle wasting Psychiatric: normal affect, A&O x 3 Hosp A/P (1) Hypertensive urgency Code(s): I16.0 - HYPERTENSIVE URGENCY Status: Acute Plan: BP labile, optimize current regimen and monitor trend (2) CKD (chronic kidney disease), stage IV Code(s): N18.4 - CHRONIC KIDNEY DISEASE, STAGE 4 (SEVERE) Status: Chronic Plan: Renal function stable, continue close monitoring as outpt (3) Cannabis abuse Code(s): F12.10 - CANNABIS ABUSE, UNCOMPLICATED Status: Chronic (4) Amphetamine abuse Code(s): F15.10 - OTHER STIMULANT ABUSE, UNCOMPLICATED Status: Chronic (5) Transaminitis Code(s): R74.0 - NONSPEC ELEV OF LEVELS OF TRANSAMNS & LACTIC ACID DEHYDRGNSE Status: Chronic - Plan social sciences chair, out of bed/ambulate, DVT proph w/SCDs Stable currently Continue Coreg/Nifedipine/Lasix/Hydralazine/Clonidine CM assistance for home meds/PCP follow up OOB/ambulate Cessation resources for substance abuse ? home in 24h
[2019-10-22] MEDS ORDERED: Labetalol HCl 100 MG/20 ML VIAL SLOW IVP SCH (18:45)
[2019-10-22] MEDS: Nicotine 21 MG PATCH TOP SCH (20:49)
[2019-10-23] MEDS: hydrALAZINE 25 MG TAB PO SCH ×4 (00:30→17:55)
[2019-10-23] MEDS ORDERED: NIFEdipine XL 60 MG TAB PO SCH (09:00)
[2019-10-23] MEDS: Carvedilol 25 MG TAB PO SCH ×2 (09:03→16:28)
[2019-10-23] MEDS: cloNIDine 0.1 MG TAB PO SCH ×2 (09:03→20:02)
[2019-10-23] MEDS: Furosemide 20 MG TAB PO SCH (09:03)
[2019-10-23] MEDS: Atorvastatin Calcium 40 MG TAB PO SCH (09:03)
[2019-10-23] MEDS: Aspirin 325 mg Enteric Coated Tablet PO SCH (09:04)
--- NOTE | 2019-10-23 11:29 | PRG ---
DATE OF SERVICE: 10/23/2019 SUBJECTIVE: A 48-year-old gentleman being seen for acute kidney injury. The patient denies any nausea, vomiting, or chest pain. OBJECTIVE: GENERAL: The patient is awake and alert. VITAL SIGNS: Afebrile. Pulse 65, breathing 16, blood pressure 153/88. HEENT: Head normocephalic and atraumatic. Eyes intact, no ulcers. Nose intact, no ulcers. Ears intact, no ulcers. NECK: Supple. No JVD. CHEST: Symmetrical and clear. CARDIOVASCULAR: Shows S1 and S2, no rub, no murmur. GASTROINTESTINAL: Abdomen is soft, bowel sounds positive. EXTREMITIES: Show no edema or ulcers. SKIN: Shows no rash or petechiae. MUSCULOSKELETAL: Shows no joint swelling or stiffness. GENITOURINARY: Shows no Anton or CVA tenderness. NEUROLOGIC: Motor intact. Cranial nerves intact. LABORATORY DATA: Labs showed hemoglobin 9.8. ASSESSMENT AND RECOMMENDATIONS: 1. Stage 4 chronic kidney disease. Recheck labs. 2. Hypertension, stable. 3. Anemia, stable. 4. Medication based on GFR appropriate. Job ID: [id number]
[2019-10-23 12:29] LABS: Anion Gap 15 mmol/L (10-20); BUN (Urea Nitrogen) 42 mg/dL (8.9-20.6); Calc. Creatinine Clearance 31 mL/min (70-130); Calcium 8.5 mg/dL (7.8-10.44); Carbon Dioxide 20 mmol/L (22-29); Chloride 101 mmol/L (98-107); Estimated GFR-MDRD 19; Glucose 88 mg/dL (70-105); Potassium 4.5 mmol/L (3.5-5.1); Sodium 131 mmol/L (136-145)
--- NOTE | 2019-10-23 16:48 | PDOC.CPN ---
- Subjective Date: 10/23/19 Time: 16:47 Interval history: He is doing much better. His BP is down to the 150's. He is concerned about returning to his environment as he states his "friends" all sell drugs and give him drugs as well. - Review of Systems General: denies: fever/chills, weight/appetite/sleep changes, night sweats, fatigue Respiratory: denies: cough, congestion, shortness of breath, exercise intolerance Cardiovascular: denies: chest pain, palpitation, edema, paroxysmal nocturnal dyspnea, orthopnea Gastrointestinal: denies: nausea, vomiting, diarrhea, constipation, abd pain, GI bleeding Musculoskeletal: denies: pain, tenderness, stiffness, swelling, arthritis/ arthralgias Neurological: denies: numbness, syncope, seizure, weakness - Objective Allergies/Adverse Reactions: Allergies Allergy/AdvReac Type Severity Reaction Status Date / Time No Known Allergies Allergy Verified 10/05/19 00:50 Visit Medications: Current Medications Acetaminophen (Tylenol) 650 mg PO Q4H PRN PRN Reason: Headache/Fever/Mild Pain (1-3) Last Admin: 10/22/19 05:31 Dose: 650 mg Hydrocodone Bitart/Acetaminophen ([place] 5/325) 1 tab PO Q4H PRN PRN Reason: Moderate Pain (4-6) Aspirin (Ecotrin) 325 mg PO DAILY [facility] Last Admin: 10/23/19 09:04 Dose: 325 mg Atorvastatin Calcium (Lipitor) 40 mg PO DAILY [facility] Last Admin: 10/23/19 09:03 Dose: 40 mg Carvedilol (Coreg) 25 mg PO BID-[facility] Last Admin: 10/23/19 16:28 Dose: 25 mg Clonidine (Catapres) 0.2 mg PO BID [facility] Last Admin: 10/23/19 09:03 Dose: 0.2 mg Furosemide (Lasix) 20 mg PO DAILY [facility] Last Admin: 10/23/19 09:03 Dose: 20 mg Hydralazine HCl (Apresoline) 100 mg PO Q6HR [facility] Last Admin: 10/23/19 12:23 Dose: 100 mg Hydralazine HCl (Apresoline) 20 mg SLOW IVP Q4H PRN PRN Reason: SBP Greater Than 170 Last Admin: 10/22/19 13:05 Dose: 20 mg Nicardipine HCl 50 mg/ Sodium (Chloride) 250 mls @ 0 mls/hr IV INF SIRI; Protocol Last Admin: 10/19/19 12:53 Dose: 250 mls Nicotine (Nicoderm Patch) 21 mg TOP Q24HR [facility] Last Admin: 10/22/19 20:49 Dose: 21 mg Nifedipine (Procardia Xl) 120 mg PO DAILY [facility] Last Admin: 10/23/19 09:02 Dose: 120 mg Ondansetron HCl (Zofran Odt) 4 mg PO Q6H PRN PRN Reason: Nausea/Vomiting Last Admin: 10/19/19 19:02 Dose: 4 mg Sodium Chloride (Flush - Normal Saline) 10 ml IVF PRN PRN PRN Reason: Saline Flush Last Admin: 10/20/19 08:16 Dose: 10 ml Vital Signs & Weight: Vital Signs Temp Pulse Resp BP BP Pulse Ox 10/23/19 12:23 63 156/91 H 10/23/19 11:57 98.0 F 59 L 18 151/86 H 97 10/23/19 09:03 150/85 H 10/23/19 09:02 69 150/85 H 10/23/19 07:27 98.1 F 64 18 153/88 H 96 10/23/19 05:51 64 156/86 H Weight 185 lb 13.595 oz - Physical Exam General: alert & oriented x3 HEENT: mucus membranes moist Neck: supple neck Cardiac: regular rate and rhythm Lungs: normal breath sounds Neuro: grossly intact Abdomen: active bowel sounds Extremities: no edema Skin: clear Musculoskeletal: no pain - Labs Result Diagrams: 10/20/19 06:20 10/23/19 11:45 Troponin/CKMB CK-MB (CK-2) 3.8 ng/mL (0-6.6) 10/18/19 20:08 Troponin I 0.041 ng/mL (< 0.028) H 10/19/19 03:04 - Assessment/Plan Assessment/Plan: 1. Hypertensive urgency 2. Methaomphetamine use, ongoing 3. Non compliance. PLAN: - BP better controlled on current regimen. Continue for now. - Counseled on cessation. - CV stable.
[2019-10-23] MEDS: Nicotine 21 MG PATCH TOP SCH (20:01)
[2019-10-23 20:03] VITALS: BP 145/75
[2019-10-23 20:07] VITALS: TEMP 98.1
--- NOTE | 2019-10-24 02:03 | DIS ---
DATE OF ADMISSION: 10/18/2019 DATE OF DISCHARGE: 10/23/2019 DISCHARGE DIAGNOSES: 1. Hypertensive urgency, resolving. 2. Hypertension, chronic, labile due to noncompliance. 3. Chronic kidney disease stage 4. 4. Polysubstance abuse. 5. Transaminitis, chronic. CONSULTATIONS: 1. Dr. Sidhu with Nephrology Service. 2. Dr. Ruiz with Cardiology Service. 3. Dr. Correa with Pulmonology/Critical Care Service. PERTINENT LABORATORY AND X-RAY FINDINGS: Sodium ranged between 133 to 136. Creatinine ranged between 3.63 to 3.86. Estimated GFR ranged between 17 to 18. Troponin I ranged between 0.029 to 0.041. BNP 760, previously noted 1727 on 10/04/2019. AST 67, ALT 67, and alkaline phosphatase 124. CBC showed a hemoglobin ranging between 9.8 to 11.0. Urine drug screen dated 10/19/2019 positive for methamphetamines and cannabis. COVID-19 PCR not detected 10/19/2019. Portable chest x-ray dated 10/18/2019, showed no acute cardiopulmonary process. HOSPITAL COURSE: The patient was initially admitted to the critical care unit after presenting with hypertensive urgency requiring a Cardene infusion for blood pressure control. The patient with longstanding history of hypertension, poorly managed due to noncompliance and polysubstance abuse. The patient was continued on Cardene infusion and resumed on oral medications requiring multiple titration doses for optimal blood pressure response. The patient was evaluated by the Cardiology and Pulmonology Service due to the critical care admission. The patient clinically stabilized and weaned off Cardene infusion, transitioning to an oral regimen. The patient remained with labile hypertension throughout the hospital course, likely due to noncompliance in conjunction with stage 4 chronic kidney disease. Case management was consulted for potential assistance with medications; however, the patient does not meet qualification for further assistance due to noncompliance and recent assistance within the last 2 to 3 weeks prior to this admission. Discussions were had with the patient regarding the need for consistent followup with [facility] or [facility] to establish care and potential discounted medication assistance. Overall, the patient did remain clinically stable and ready for discharge on 10/23/2019. I have examined the patient at the time of discharge and discussed follow up instructions. The patient verbalizes understanding and agreement, ready for discharge on 10/23/2019. DISCHARGE MEDICATIONS: 1. Lasix 20 mg p.o. daily. 2. Enteric-coated aspirin 81 mg p.o. daily. 3. Lipitor 40 mg p.o. daily. 4. Coreg 25 mg p.o. b.i.d. 5. Clonidine 0.2 mg p.o. b.i.d. 6. Hydralazine 100 mg p.o. q.i.d. 7. Nifedipine XL 60 mg p.o. daily. FOLLOWUP: The patient may follow up with [facility] or [facility]. CONDITION ON DISCHARGE: Fair. ACTIVITY: Ad-ivet. DIET: Heart healthy. CODE STATUS: Full. DISPOSITION: To home on 10/23/2019. TIME SPENT: Total time preparing and coordinating discharge, 33 minutes. Job ID: [id number]
== END 2019-10-23 20:50 | disposition home or self-care (01) | DRG 305 ==
LOC: ERS 19:22 → CCU 23:01 → T4-B 10-20 12:32 → 2NO 10-20 12:44 → T4-B 10-20 13:10
PROVIDERS: ADMIT Internal Medicine; ATTEND Internal Medicine
DX: I16.0 Hypertensive urgency (principal); N18.4 Chronic kidney disease, stage 4 (severe); N17.9 Acute kidney failure, unspecified; R11.2 Nausea with vomiting, unspecified; F19.11 Other psychoactive substance abuse, in remission; F17.210 Nicotine dependence, cigarettes, uncomplicated; I12.9 Hypertensive chronic kidney disease with stage 1 through stage 4 chronic kidney disease, or unspecified chronic kidney disease; F12.10 Cannabis abuse, uncomplicated; R74.0 Nonspecific elevation of levels of transaminase and lactic acid dehydrogenase [LDH]; D63.8 Anemia in other chronic diseases classified elsewhere; F15.10 Other stimulant abuse, uncomplicated; E78.5 Hyperlipidemia, unspecified; Z20.828 Contact with and (suspected) exposure to other viral communicable diseases; E87.6 Hypokalemia; I25.2 Old myocardial infarction; Z79.899 Other long term (current) drug therapy; Z86.19 Personal history of other infectious and parasitic diseases; Z91.14 Patient's other noncompliance with medication regimen
CPT/HCPCS: 36415; 71045; 80048; 80053; 80306; 82553; 83880; 84484; 85025; 87635; 93005; 94760; 96365; 96366; 96375; 96376; 99292; J0360; J7050; Q0162; U0003

== ENCOUNTER 2019-11-27 18:44 | Inpatient (IN) | payer OTHER, SELFPAY ==
[2019-11-27] MEDS ORDERED: niCARdipine 20MG In NaCl 0 MG/0 ML BAG ONE (19:00)
[2019-11-27 19:15] LABS: #Eosinphils 0.3 thou/uL (0.0-0.7); #Lymphocytes 0.9 thou/uL (1.20-3.40); #Monocytes 0.5 thou/uL (0.11-0.59); #Neutrophils 4.8 thou/uL (1.40-6.50); %Basophils 0.5 % (0.0-1.0); %Eosinophils 4.9 % (0.0-10.0); %Lymphocytes 13.1 % (21.0-51.0); %Monocytes 7.5 % (0.0-10.0); Hemoglobin 9.2 g/dL (14.0-18.0); Mean Corpuscular HGB CONC 33.4 g/dL (32.0-36.0); Mean Corpuscular Hemoglobin 30.3 pg (27.0-31.0); Mean Corpuscular Volume 90.6 fL (78.0-98.0); Platelet Count 155 thou/uL (130-400); RBC Distribution Width 13.5 % (11.5-14.5); Red Blood Cell (RBC) Count 3.04 mill/uL (4.70-6.10); White Blood Cell (WBC) Count 6.5 thou/uL (4.8-10.8)
[2019-11-27] MEDS ORDERED: hydrALAZINE 25 MG TAB ONE (19:32)
[2019-11-27] MEDS ORDERED: cloNIDine 0.1 MG TAB ONE (19:32)
[2019-11-27 19:34] LABS: ALT (SGPT) 27 U/L (8-55); AST (SGOT) 27 U/L (5-34); Albumin 3.4 g/dL (3.5-5.0); Alkaline Phosphatase 104 U/L (40-110); Anion Gap 12 mmol/L (10-20); BUN (Urea Nitrogen) 51 mg/dL (8.9-20.6); Bilirubin, Total 0.5 mg/dL (0.2-1.2); Calc. Creatinine Clearance 0 mL/min (70-130); Carbon Dioxide 21 mmol/L (22-29); Chloride 106 mmol/L (98-107); Estimated GFR-MDRD 19; Globulin 3.1 g/dL (2.4-3.5); Glucose 100 mg/dL (70-105); Magnesium 1.9 mg/dL (1.6-2.6); Potassium 3.9 mmol/L (3.5-5.1); Protein, Total 6.5 g/dL (6.0-8.3); Sodium 135 mmol/L (136-145)
[2019-11-27] MEDS ORDERED: NIFEdipine XL 30 MG TAB ONE (19:34)
[2019-11-27] MEDS ORDERED: NIFEdipine XL 60 MG TAB PO SCH (19:45)
[2019-11-27] MEDS ORDERED: Carvedilol 25 MG TAB PO SCH (19:45)
[2019-11-27 19:57] LABS: CKMB 3.6 ng/mL (0-6.6)
--- NOTE | 2019-11-27 20:20 | RAD ---
PORTABLE CHEST; Date: 11/27/2019 HISTORY: Hypertension, chest pain. COMPARISON: 10/18/2019 exam. FINDINGS: Heart size is within normal limits for portable technique. No signs of overt failure. No definite foc al infiltrative process. Slight increased parenchymal density in the mid lung field is a similar appe arance to previous exams and may be chronic in nature. No definitive infiltrative change. IMPRESSION: No active intrathoracic disease. POS: REILLY
[2019-11-27 22:18] VITALS: BMI 24.8
[2019-11-27] MEDS ORDERED: Aspirin 325 MG TAB PO SCH (23:15)
[2019-11-27] MEDS: Nitroglycerin 2% Ointment 1 INCH/1 GM Packet TOP SCH (23:28)
[2019-11-27 23:42] LABS: Troponin I 0.042 ng/mL (< 0.028)
--- NOTE | 2019-11-28 00:59 | HP ---
PCP: THADDEUS Tovar. CHIEF COMPLAINT: High blood pressure, unable to fill medications. HISTORY OF PRESENT ILLNESS: The patient is a 49-year-old male with past medical history significant for hypertension and IV drug use, hepatitis C, NSTEMI, and kidney and liver failure. He presents to the ER today for high blood pressure because he has been not able to be compliant with his medication for the past 2 days. He states that he ran out of his blood pressure medication 2 days ago, and was unable to have it refilled because of the holiday, . He was admitted approximately 1 month ago for hypertensive urgency, and was discharged on four different antihypertensives including hydralazine, clonidine, carvedilol, and nifedipine. He was given a 1 month supply at that time. He also states he has a sharp centralized chest pain. He states this is similar to his daily chest pain that he has. He has a history of polysubstance abuse, but he states that the only drug he has used recently has been marijuana. He states he has not used any methamphetamine or cocaine recently. He denies any shortness of breath, abdominal pain, change in bowel or bladder patterns. He does state that he was compliant with his antihypertensive medications this past month, but he was not taking his statin, aspirin or Lasix. Today in the ER, they completed lab work and EKG, and chest x-ray. He was given carvedilol 25 mg oral, clonidine 0.2 mg orally, hydralazine 100 mg oral, and nifedipine 60 mg oral. PAST MEDICAL HISTORY: Hepatitis C, hypertension, NSTEMI, kidney failure, TIA, liver failure. PAST SURGICAL HISTORY: None. ALLERGIES: NO KNOWN DRUG ALLERGIES. MEDICATIONS: 1. Carvedilol 25 mg daily. 2. Hydralazine 100 mg 4 times a day. 3. Nifedipine 60 mg at night. 4. Atorvastatin 10 mg. 5. Lasix 20 mg, however, he has not been taking the atorvastatin or Lasix he states. SOCIAL HISTORY: The patient lives at home. He does use tobacco, smokes 2 packs per day. He does drink socially, and he does use marijuana. He states he formally used methamphetamines, but has quit for a month and a half now. FAMILY HISTORY: No significant family history. REVIEW OF SYSTEMS: All other review of systems are negative unless noted in the HPI. PHYSICAL EXAMINATION: VITAL SIGNS: Blood pressure initially coming into the ER was 220/146, pulse 80. His most recent blood pressure is 179/110, pulse 73, respiratory rate 23, temp 98.6, O2 saturation 97% on room air. CONSTITUTIONAL: Appears older than stated age. Hypertensive, afebrile. HEENT: Head, atraumatic, normocephalic. Eyes, extraocular muscles intact. PERRLA. NECK: Normal range of motion. Trachea midline. RESPIRATORY: Clear to auscultation bilaterally. No rhonchi, no wheezes, no rales. CARDIOVASCULAR: Regular rate and rhythm. No murmurs, no rubs, no gallops. EXTREMITIES: Normal range of motion. No edema. No cyanosis. No clubbing. NEUROLOGIC: Awake and alert. Moving all extremities. LABS AND IMAGING: EKG, sinus rhythm, 79 beats per minute. Chest x-ray, no active intrathoracic disease. White blood cells 6.5, hemoglobin 9.2, hematocrit 27.6. Sodium 135, potassium 3.9, carbon dioxide 21, BUN 51, creatinine 3.51, GFR 19, CK-MB 3.6, troponin 0.044, albumin 3.4. IMPRESSION AND PLAN: 1. Hypertensive urgency with chronic hypertension. Patient was started on his home medications, and patient's blood pressure has been slowly coming down. He states that he has felt some relief. He felt "poorly" when he initially came in today, but now states that his headache is gone and he is feeling more energized. He reinforces that he has been off his medications for only 2 days. He may need assistance receiving medications in the future. We will continue on his home medications, and see if we can maintain his blood pressure at a reasonable level, and try to minimize his medications as much as possible due to financial restraints. Patient has a p.r.n. antihypertensive available if needed. 2. Chronic kidney disease, stage 4, his levels appeared to be where they were during his last visit. We will continue to monitor him throughout his stay and avoid nephrotoxic medications. 3. Polysubstance abuse. UDS has been ordered on the patient. He states he has been "clean" for the past month. He has only been using marijuana. 4. Anemia, however, his levels appeared to be where they were during his last hospitalization. We will continue to follow him. No signs of active bleeding at this time. 5. Gastrointestinal and deep venous thrombosis prophylaxis in place. 6. He wishes to be full code. His surrogate decision maker is his sister, Gal. The patient has been discussed with Dr. Whitmore. Job ID: [id number] [id number]
[2019-11-28 02:21] LABS: Troponin I 0.037 ng/mL (< 0.028)
[2019-11-28 07:19] LABS: Amphetamine Not Detected (NotDetected); Barbiturates Screen Not Detected (NotDetected); Benzodiazepine Screen Not Detected (NotDetected); Cocaine Metabolite Screen Not Detected (NotDetected); Medtox Control Line Valid? VALID (VALID); Medtox Reader # READER 4; Methadone Not Detected (NotDetected); Methamphetamine Not Detected (NotDetected); Opiate Screen Not Detected (NotDetected); Oxycodone Screen Not Detected (NotDetected); Phencyclidine (PCP) Not Detected (NotDetected); THC/Cannabinoid Screen Detected (NotDetected); Tricyclic Screen Not Detected (NotDetected)
[2019-11-28] MEDS: Enoxaparin Sodium 40 MG/0.4 ML SYRINGE SC SCH (08:19)
[2019-11-28] MEDS: Nitroglycerin 2% Ointment 1 INCH/1 GM Packet TOP SCH (08:20)
[2019-11-28] MEDS ORDERED: Aspirin 325 mg Enteric Coated Tablet PO SCH (09:00)
[2019-11-28 11:25] LABS: Anion Gap 13 mmol/L (10-20); BUN (Urea Nitrogen) 46 mg/dL (8.9-20.6); Calc. Creatinine Clearance 32 mL/min (70-130); Carbon Dioxide 20 mmol/L (22-29); Chloride 105 mmol/L (98-107); Estimated GFR-MDRD 19; Glucose 110 mg/dL (70-105); Potassium 4.2 mmol/L (3.5-5.1); Sodium 134 mmol/L (136-145)
[2019-11-28] MEDS ORDERED: NIFEdipine XL 60 MG TAB PO SCH ×2 (15:08→19:45)
[2019-11-28] MEDS ORDERED: Carvedilol 25 MG TAB PO SCH (15:09)
[2019-11-28] MEDS: Labetalol HCl 100 MG/20 ML VIAL SLOW IVP PRN (19:02)
--- NOTE | 2019-11-28 19:37 | PDOC.HOSPP ---
- Subjective Encounter Date: 11/28/19 Encounter Time: 15:00 Subjective: THe patient states he continues to have chest pain intermittently at rest and on exertion. It comes and goes. He is an active smoker. He has never had a stress test before. He reports extensive family history of CAD. He states nitro helped his chest pain but gave him a headache. He denies SOB when he gets the chest pain He ran out of his medications for two days. He reports that he was taking hydralazine, clonidine , coreg and nifedipine for blood pressure. He stated his BP improved to 120/80 with clonidine that was added recently. It was 245 systolic when he came to the hospital. - Objective Vital Signs & Weight: Vital Signs (12 hours) Temp Pulse Resp BP Pulse Ox 11/28/19 18:25 98.8 F 78 18 179/115 H 96 11/28/19 16:00 98.3 F 75 18 162/103 H 96 11/28/19 11:35 98.4 F 78 18 141/86 H 92 L 11/28/19 08:03 95 Weight Weight 188 lb 8 oz I&O: 11/27/19 11/28/19 11/29/19 06:59 06:59 06:59 Intake Total 300 Output Total 1350 Balance -1050 Result Diagrams: 11/27/19 19:03 11/28/19 10:35 Hospitalist ROS - Review of Systems Constitutional: denies: fever, chills - Medication Medications: Active Medications Generic Name Dose Route Start Last Admin Trade Name Freq PRN Reason Stop Dose Admin Enoxaparin Sodium 40 mg 11/28/19 09:00 11/28/19 08:19 Enoxaparin Sodium 40 Mg/0.4 Ml Syringe SC 40 mg 0900 SIRI Administration Labetalol HCl 20 mg 11/27/19 22:57 11/28/19 19:02 Labetalol Hcl 100 Mg/20 Ml Vial SLOW IVP 4 ml Q4H PRN Administration SBP > 180 and HR >/= 70 Sodium Chloride 10 ml 11/28/19 09:00 11/28/19 08:20 Flush - Normal Saline 10 Ml Syringe IVF 10 ml Q12HR SIRI Administration - Exam General Appearance: NAD, awake alert Eye: PERRL, anicteric sclera ENT: normocephalic atraumatic, no oropharyngeal lesions Neck: no JVD Heart: RRR, no murmur, no gallops, no rubs Respiratory: CTAB, no wheezes, no rales, no ronchi Gastrointestinal: soft, non-tender, non-distended, normal bowel sounds Extremities: no cyanosis, no clubbing, no edema Skin: normal turgor, no lesions, no rashes Neurological: cranial nerve grossly intact, normal sensation to touch, no weakness, no focal deficits Hosp A/P - Plan THis is a 49 year old male patient who presented with chest pain and uncontrolled hypertension Hypertensive urgency - the patient presented with a BP of 245 systolic, improved to 130 this morning - will start on imdur and resume nifedipine - hold beta livier in anticipation of stress test Chest pain - does report relief with nitroglycerin. Troponins are indeterminate - will obtain stress test in the am - he had recent ECHO 09/2019 which showed EF 60-65% with diastolic dysfunction Anemia - Hb 9.2, stable CKD - creatinine 3.4, stable
[2019-11-28] MEDS: cloNIDine 0.1 MG TAB PO PRN (23:32)
[2019-11-28] MEDS: Acetaminophen 500 MG TAB PO PRN (23:33)
[2019-11-29 05:29] LABS: Thyroid Stimulating Hormone 1.5225 uIU/mL (0.35-4.94)
[2019-11-29] MEDS: Enoxaparin Sodium 40 MG/0.4 ML SYRINGE SC SCH (08:19)
[2019-11-29] MEDS: NIFEdipine XL 60 MG TAB PO SCH (08:19)
[2019-11-29] MEDS: Aspirin 81 mg Enteric Coated Tablet PO SCH (08:19)
[2019-11-29] MEDS: cloNIDine 0.1 MG TAB PO PRN (11:57)
[2019-11-29] MEDS ORDERED: Doxazosin 2 MG TAB PO SCH (12:15)
[2019-11-29] MEDS ORDERED: Famotidine 20 MG TAB PO SCH (12:15)
[2019-11-29] MEDS ORDERED: hydrALAZINE 25 MG TAB PO SCH ×2 (12:45)
[2019-11-29 12:46] LABS: SARS-CoV-2 MS2 Positive; SARS-CoV-2 N Gene Negative; SARS-CoV-2 S Gene Negative; SARS-CoV-2 by NAA Not Detected (NotDetected); SARS-CoV-2 orf1ab Negative
[2019-11-29] MEDS: Acetaminophen 500 MG TAB PO PRN ×2 (14:40→20:19)
--- NOTE | 2019-11-29 18:21 | PDOC.HOSPP ---
- Subjective Encounter Date: 11/29/19 Encounter Time: 11:00 Subjective: The patient went for stress test, however it was cancelled due to elevated blood pressure . Unable to give coreg due to it interfering with stress test. Patient complained of some chest discomfort, but refused nitroglycerin since it was giving him a headache - Objective Vital Signs & Weight: Vital Signs (12 hours) Temp Pulse Resp BP Pulse Ox 11/29/19 16:00 98.6 F 81 17 153/98 H 96 11/29/19 12:37 195/115 H 11/29/19 11:40 98.1 F 77 17 181/111 H 98 11/29/19 08:20 95 11/29/19 08:15 98.4 F 86 17 173/107 H 95 Weight Weight 190 lb 14.4 oz I&O: 11/28/19 11/29/19 11/30/19 06:59 06:59 06:59 Intake Total 300 960 Output Total 1350 1275 Balance -1050 -315 Result Diagrams: 11/27/19 19:03 11/28/19 10:35 Hospitalist ROS - Review of Systems Constitutional: denies: fever, chills - Medication Medications: Active Medications Generic Name Dose Route Start Last Admin Trade Name Freq PRN Reason Stop Dose Admin Acetaminophen 1,000 mg 11/27/19 22:57 11/29/19 14:40 Acetaminophen 500 Mg Tab PO 1,000 mg Q6H PRN Administration Mild Pain (1-3) Aspirin 81 mg 11/29/19 09:00 11/29/19 08:19 Aspirin 81 Mg Enteric Coated Tablet PO 81 mg DAILY SIRI Administration Clonidine 0.1 mg 11/28/19 23:24 11/29/19 11:57 Clonidine 0.1 Mg Tab PO 0.1 mg Q4H PRN Administration SBP Greater Than 180 Enoxaparin Sodium 40 mg 11/28/19 09:00 11/29/19 08:19 Enoxaparin Sodium 40 Mg/0.4 Ml Syringe SC 40 mg 0900 SIRI Administration Isosorbide Mononitrate 30 mg 11/29/19 09:00 11/29/19 08:19 Isosorbide Mononitrate Er 30 Mg Tab PO 30 mg DAILY SIRI Administration Labetalol HCl 20 mg 11/27/19 22:57 11/28/19 19:02 Labetalol Hcl 100 Mg/20 Ml Vial SLOW IVP 4 ml Q4H PRN Administration SBP > 180 and HR >/= 70 Nifedipine 60 mg 11/29/19 09:00 11/29/19 08:19 Nifedipine Xl 60 Mg Tab PO 60 mg DAILY SIRI Administration Sodium Chloride 10 ml 11/28/19 09:00 11/29/19 08:19 Flush - Normal Saline 10 Ml Syringe IVF 10 ml Q12HR SIRI Administration - Exam General Appearance: NAD, awake alert Eye: PERRL, anicteric sclera ENT: normocephalic atraumatic, no oropharyngeal lesions Neck: no JVD Heart: RRR, no murmur, no gallops, no rubs Respiratory: CTAB, no wheezes, no rales, no ronchi Gastrointestinal: soft, non-tender, non-distended, normal bowel sounds Extremities: no cyanosis, no clubbing, no edema Skin: normal turgor, no lesions, no rashes Neurological: cranial nerve grossly intact, normal sensation to touch, no weak ness, no new deficit Hosp A/P - Plan THis is a 49 year old male patient who presented with chest pain and uncontrolled hypertension Hypertensive urgency - the patient presented with a BP of 245 systolic, improved to 130 and then increased again - added clonidine 0.1 mg prn, resume home hydralazine 100 mg tid - continue imdur 30 mg daily - on nifedipine 60 mg daily, will consider increasing Chest pain - does report relief with nitroglycerin. Troponins are indeterminate - stress test to be ordered for tomorrow - he had recent ECHO 09/2019 which showed EF 60-65% with diastolic dysfunction Anemia - Hb 9.2, stable. B12/folate, TSH were normal CKD - creatinine 3.4, stable DIspo: pending stress test tomorrow
[2019-11-29] MEDS ORDERED: Lidocaine 2% Viscous Solution 10 ML, Aluminum & Magnesium Hydroxide 30 ML SSW SCH (23:59)
[2019-11-30] MEDS: cloNIDine 0.1 MG TAB PO PRN ×3 (00:14→09:50)
[2019-11-30] MEDS: Labetalol HCl 100 MG/20 ML VIAL SLOW IVP PRN (02:26)
[2019-11-30 02:30] LABS: Hemoglobin 9.6 g/dL (14.0-18.0); Mean Corpuscular HGB CONC 33.6 g/dL (32.0-36.0); Mean Corpuscular Hemoglobin 30.1 pg (27.0-31.0); Mean Corpuscular Volume 89.4 fL (78.0-98.0); Mean Platelet Volume 7.7 fL (7.4-10.4); Platelet Count 183 thou/uL (130-400); RBC Distribution Width 13.7 % (11.5-14.5); White Blood Cell (WBC) Count 6.4 thou/uL (4.8-10.8)
[2019-11-30] MEDS ORDERED: Morphine 2 MG/ML VIAL SLOW IVP SCH (02:45)
[2019-11-30 02:48] LABS: Lactic Acid 0.5 mmol/L (0.5-2.2)
[2019-11-30 02:56] LABS: Anion Gap 17 mmol/L (10-20); BUN (Urea Nitrogen) 44 mg/dL (8.9-20.6); Calc. Creatinine Clearance 35 mL/min (70-130); Calcium 8.6 mg/dL (7.8-10.44); Carbon Dioxide 17 mmol/L (22-29); Chloride 105 mmol/L (98-107); Estimated GFR-MDRD 21; Glucose 93 mg/dL (70-105); Potassium 4.2 mmol/L (3.5-5.1); Sodium 135 mmol/L (136-145)
[2019-11-30 03:14] LABS: CKMB 2.1 ng/mL (0-6.6)
--- NOTE | 2019-11-30 07:56 | RAD ---
RADIOGRAPH CHEST 1 VIEW: DATE: 11/30/2019 TIME: 2:54 AM HISTORY: 49-year-old male with dyspnea and chest pain COMPARISON: 11/27/2019 FINDINGS: New finding of diffuse mild, slightly heterogeneously distributed interstitial infiltrates. No cardio megaly. No pneumothorax. Lateral costophrenic angles are not effaced. IMPRESSION: Bilateral interstitial infiltrates: Noncardiogenic pulmonary interstitial edema versus viral pneumoni a.
[2019-11-30] MEDS: NIFEdipine XL 60 MG TAB PO SCH (09:00)
[2019-11-30] MEDS: Aspirin 81 mg Enteric Coated Tablet PO SCH (09:00)
[2019-11-30] MEDS ORDERED: Furosemide 40 MG/4 ML VIAL SLOW IVP SCH (09:00)
[2019-11-30] MEDS ORDERED: hydrALAZINE 25 MG TAB PO SCH (10:30)
[2019-11-30] MEDS ORDERED: Carvedilol 25 MG TAB PO SCH (11:00)
[2019-11-30] MEDS: Enoxaparin Sodium 40 MG/0.4 ML SYRINGE SC SCH (11:15)
[2019-11-30] MEDS: hydrALAZINE 25 MG TAB PO SCH ×2 (14:00→21:23)
[2019-11-30] MEDS: Carvedilol 25 MG TAB PO SCH (17:15)
--- NOTE | 2019-11-30 19:26 | CON ---
DATE OF CONSULTATION: 11/30/2019 CONSULTING PHYSICIAN: REASON FOR CONSULTATION: Chronic kidney disease and hypertension. REASON FOR ADMISSION: High blood pressure. HISTORY OF PRESENT ILLNESS: This is a 49-year-old male with history of hypertension, drug abuse, hepatitis C, chronic kidney disease, came to the hospital with high blood pressure. He is not able to get his medications. No fever or chills. No nausea or vomiting. The patient's creatinine remains elevated. Nephrology is consulted. PAST MEDICAL HISTORY: Positive for; 1. Hepatitis C. 2. Hypertension. 3. Vpv-DM-wsrxgrxva myocardial infarction. 4. Kidney failure. 5. TIA. 6. Liver failure. PAST SURGICAL HISTORY: None. HOME MEDICATIONS: Reviewed. ALLERGIES: NO KNOWN DRUG ALLERGIES. SOCIAL HISTORY: History of smoking and marijuana use. FAMILY HISTORY: No history of kidney disease. REVIEW OF SYSTEMS: CONSTITUTIONAL: Negative for weight loss or gain, ability to conduct usual activities. SKIN: Negative for rash, itching. EYES: Negative for double vision, pain. ENT/MOUTH: Negative for nose bleeding, neck stiffness, pain, tenderness. CARDIOVASCULAR: Negative for palpitations, dyspnea on exertion, orthopnea. RESPIRATORY: Negative for shortness of breath, wheezing, cough, hemoptysis, fever or night sweats. GASTROINTESTINAL: Negative for poor appetite, abdominal pain, heartburn, nausea, vomiting, constipation, or diarrhea. GENITOURINARY: Negative for urgency, frequency, dysuria, nocturia. MUSCULOSKELETAL: Negative for pain, swelling. NEUROLOGIC/PSYCHIATRIC: Negative for anxiety, depression. ALLERGY/IMMUNOLOGIC: Negative for skin rash, bleeding tendency. PHYSICAL EXAMINATION: GENERAL: This is a well-built male, in no apparent distress. VITAL SIGNS: Temperature 98, pulse 80, respiratory rate 18, blood pressure 170/98. HEENT: Atraumatic and normocephalic. Oral mucosa is moist. NECK: Supple. CV: S1 and S2 heard. Rate and rhythm are regular. RESPIRATORY: Clear. GASTROINTESTINAL: Abdomen is soft. MUSCULOSKELETAL: 1+ edema. DERMATOLOGIC: No skin rash. NEUROLOGIC: Alert and awake. PSYCHIATRIC: Mood and affect normal. LABORATORY DATA: Hemoglobin is 9.6. Potassium 4.2, BUN is 44, creatinine is 3.2, GFR is 21. ASSESSMENT AND PLAN: 1. Acute kidney injury on chronic kidney disease stage 4, stable. 2. History of hypertension. Blood pressure seems to be getting better. 3. Polysubstance abuse. 4. Edema, controlled. 5. Anemia of chronic disease. We will monitor labs. We will follow. Job ID: [id number]
--- NOTE | 2019-11-30 20:05 | PDOC.HOSPP ---
- Subjective Encounter Date: 11/30/19 Encounter Time: 11:00 Subjective: The patient did not get his hydralazine yesterday afternoon so blood pressure was high. This morning blood pressure 190/100. He received his imdur and procardia and BP still high at 180/130. He had coreg with improvement in his blood pressure to 170's Unable to do stress test since diastolic persistently over 100 . Patient reports shortness of breath laying down relieved with oxygen. He also reports intermittent chest pains still and on exertion - Objective Vital Signs & Weight: Vital Signs (12 hours) Temp Pulse Resp BP Pulse Ox 11/30/19 17:12 84 176/98 H 11/30/19 15:16 98.8 F 80 18 170/98 H 97 11/30/19 13:33 83 190/109 H 11/30/19 12:20 92 210/128 H 11/30/19 11:13 97.8 F 75 18 188/120 H 97 11/30/19 09:49 202/112 H 11/30/19 09:00 82 Weight Weight 189 lb 9.6 oz I&O: 11/29/19 11/30/19 12/01/19 06:59 06:59 06:59 Intake Total 960 1920 2120 Output Total 1275 3675 375 Balance -390 -5732 7708 Result Diagrams: 11/30/19 02:14 11/30/19 02:14 Hospitalist ROS - Review of Systems Constitutional: denies: fever, chills - Medication Medications: Active Medications Generic Name Dose Route Start Last Admin Trade Name Freq PRN Reason Stop Dose Admin Acetaminophen 1,000 mg 11/27/19 22:57 11/29/19 20:19 Acetaminophen 500 Mg Tab PO 1,000 mg Q6H PRN Administration Mild Pain (1-3) Aspirin 81 mg 11/29/19 09:00 11/30/19 09:00 Aspirin 81 Mg Enteric Coated Tablet PO 81 mg DAILY SIRI Administration Carvedilol 25 mg 11/30/19 17:00 11/30/19 17:15 Carvedilol 25 Mg Tab PO 25 mg BID-WM SIRI Administration Clonidine 0.1 mg 11/28/19 23:24 11/30/19 09:50 Clonidine 0.1 Mg Tab PO 0.1 mg Q4H PRN Administration SBP Greater Than 180 Enoxaparin Sodium 40 mg 11/28/19 09:00 11/30/19 11:15 Enoxaparin Sodium 40 Mg/0.4 Ml Syringe SC 40 mg 0900 SIRI Administration Hydralazine HCl 100 mg 11/30/19 15:00 11/30/19 14:00 Hydralazine 25 Mg Tab PO 100 mg TID SIRI Administration Isosorbide Mononitrate 30 mg 11/29/19 09:00 11/30/19 09:00 Isosorbide Mononitrate Er 30 Mg Tab PO 30 mg DAILY SIRI Administration Labetalol HCl 20 mg 11/27/19 22:57 11/30/19 02:26 Labetalol Hcl 100 Mg/20 Ml Vial SLOW IVP 4 ml Q4H PRN Administration SBP > 180 and HR >/= 70 Nifedipine 60 mg 11/29/19 09:00 11/30/19 09:00 Nifedipine Xl 60 Mg Tab PO 60 mg DAILY SIRI Administration Ranolazine 500 mg 11/29/19 21:00 11/30/19 09:04 Ranolazine 500 Mg Tab PO 500 mg BID SIRI Administration Sodium Chloride 10 ml 11/28/19 09:00 11/30/19 09:04 Flush - Normal Saline 10 Ml Syringe IVF 10 ml Q12HR SIRI Administration Sodium Chloride 10 ml 11/27/19 23:01 11/30/19 02:27 Flush - Normal Saline 10 Ml Syringe IVF 10 ml PRN PRN Administration Saline Flush - Exam General Appearance: NAD, awake alert Eye: PERRL, anicteric sclera ENT: normocephalic atraumatic, no oropharyngeal lesions Neck: no JVD Heart: RRR, no murmur, no gallops, no rubs Respiratory: CTAB Respiratory - other findings: wheezing at the base Gastrointestinal: soft, non-tender, non-distended, normal bowel sounds Extremities: no cyanosis, no clubbing, no edema Skin: normal turgor, no lesions, no rashes Hosp A/P - Plan THis is a 49 year old male patient who presented with chest pain and uncontrolled hypertension Hypertensive urgency - the patient presented with a BP of 245 systolic, improved to 130 and then increased again - continue clonidine prn, hydralazine 100 mg tid, imdur 30 mg, nifedipine 60 mg. Resumed coreg 25 mg po bid - patient requested his spot welder body assembly to see him so placed consult Chest pain - does report relief with nitroglycerin. Troponins are indeterminate. He had recent ECHO 09/2019 which showed EF 60-65% with diastolic dysfunction . Deferred repeat ECHO - unable to do stress test since blood pressure not controlled without coreg. - cardiology consult placed for further workup. Anemia - Hb 9.2, stable. B12/folate, TSH were normal CKD - creatinine 3.2, stable
[2019-11-30] MEDS: Acetaminophen 500 MG TAB PO PRN (21:24)
[2019-12-01] MEDS: Labetalol HCl 100 MG/20 ML VIAL SLOW IVP PRN ×2 (05:49→11:36)
[2019-12-01] MEDS: hydrALAZINE 25 MG TAB PO SCH ×3 (07:46→22:01)
[2019-12-01] MEDS: Enoxaparin Sodium 40 MG/0.4 ML SYRINGE SC SCH (07:46)
[2019-12-01] MEDS: NIFEdipine XL 60 MG TAB PO SCH (07:47)
[2019-12-01] MEDS: Aspirin 81 mg Enteric Coated Tablet PO SCH (07:47)
[2019-12-01] MEDS: Carvedilol 25 MG TAB PO SCH ×2 (07:48→17:42)
[2019-12-01] MEDS ORDERED: cloNIDine 0.1 MG TAB PO SCH (09:30)
--- NOTE | 2019-12-01 10:47 | PRG ---
DATE OF SERVICE: 12/01/2019 OBJECTIVE: GENERAL: This is a well-built male, in no apparent distress. VITAL SIGNS: Temperature 98.3, pulse 81, respirations 20, blood pressure 210/110. LABORATORY DATA: No labs. ASSESSMENT AND PLAN: 1. Acute kidney injury on chronic kidney disease, stage 4, stable. 2. Hypertension. We will add clonidine and monitor. 3. Substance abuse. 4. Edema. 5. Anemia of chronic disease. We will add clonidine. Monitor blood pressure. Renal function is stable. We will monitor. Job ID: [id number]
[2019-12-01] MEDS: Acetaminophen 500 MG TAB PO PRN ×2 (11:52→22:02)
[2019-12-01] MEDS ORDERED: NIFEdipine XL 30 MG TAB PO SCH (13:15)
--- NOTE | 2019-12-01 13:41 | CON ---
DATE OF CONSULTATION: 12/01/2019 PRIMARY BOARD CERTIFIED BEHAVIORAL ANALYST: Dr. Sage Ruiz. HISTORY OF PRESENT ILLNESS: Mr. Chun is a 49-year-old gentleman with a history of hypertension, chest pain, substance dependence, admitted with recurrent chest pain, severely hypertensive. The patient has remained hypertensive here. OBJECTIVE: VITAL SIGNS: Blood pressure even this morning was 205/95. Blood pressure most recently 168/75, pulse 63 regular. LUNGS: Clear. CARDIAC: Normal S1, normal S2. ABDOMEN: Soft, nontender. EXTREMITIES: Warm, dry. No clubbing. No cyanosis. There is no edema. LABORATORY DATA: Creatinine is 3.2. Toxicology screen positive for marijuana. Negative for amphetamine on this occasion. Positive for amphetamines in October. ASSESSMENT: 1. Uncontrolled hypertension. 2. Chest pain. PLAN: Stress test tomorrow. It has been planned for this last few days, but his pressures been too high, given extra dose of Procardia XL now, so they can get a stress test done tomorrow. Job ID: [id number]
[2019-12-01] MEDS: cloNIDine 0.1 MG TAB PO SCH ×2 (15:19→22:01)
--- NOTE | 2019-12-01 15:59 | PDOC.HOSPP ---
- Subjective Encounter Date: 12/01/19 Encounter Time: 15:50 Subjective: f/u for HTN urgency with labile BP precluding stress testing. - Objective Vital Signs & Weight: Vital Signs (12 hours) Temp Pulse Resp BP BP Pulse Ox 12/01/19 15:30 98.4 F 66 16 140/96 H 98 12/01/19 15:20 69 12/01/19 13:23 75 12/01/19 11:49 63 168/75 H 12/01/19 11:36 70 12/01/19 11:17 97.8 F 68 18 205/95 H 95 12/01/19 10:12 166/106 H 12/01/19 07:47 81 12/01/19 07:46 210/100 H 12/01/19 07:32 98.3 F 81 16 210/100 H 97 12/01/19 05:49 80 182/110 H Weight Weight 185 lb 12.8 oz I&O: 11/30/19 12/01/19 12/02/19 06:59 06:59 06:59 Intake Total 1920 2570 Output Total 3675 1775 Balance -1755 795 Result Diagrams: 11/30/19 02:14 11/30/19 02:14 Additional Labs: Laboratory Tests 10/04/19 10/04/19 10/09/19 17:13 17:13 12:54 Hgb Sodium Potassium BUN Creatinine AST 74 H 105 H ALT 78 H 115 H Troponin I B-Natriuretic Peptide 1727.2 H Ur Amphetamines Screen U Methamphetamines Scrn U Cannabinoids Screen COVID-19 PCR SARS-CoV-2 (PCR) 10/18/19 10/18/19 10/18/19 20:08 20:08 20:08 Hgb 11.0 L Sodium 134 L Potassium 4.5 BUN 34 H Creatinine 3.86 H AST 67 H ALT 67 H Troponin I B-Natriuretic Peptide 760.3 H Ur Amphetamines Screen U Methamphetamines Scrn U Cannabinoids Screen COVID-19 PCR SARS-CoV-2 (PCR) 10/18/19 10/18/19 10/19/19 20:08 23:35 00:25 Hgb Sodium Potassium BUN Creatinine AST ALT Troponin I 0.029 H 0.034 H B-Natriuretic Peptide Ur Amphetamines Screen U Methamphetamines Scrn U Cannabinoids Screen COVID-19 PCR Not Detected SARS-CoV-2 (PCR) 10/19/19 10/19/19 10/19/19 03:04 03:04 03:04 Hgb 11.0 L Sodium 136 Potassium 3.2 L BUN 34 H Creatinine 3.86 H AST ALT Troponin I 0.041 H B-Natriuretic Peptide Ur Amphetamines Screen U Methamphetamines Scrn U Cannabinoids Screen COVID-19 PCR SARS-CoV-2 (PCR) 10/19/19 11/27/19 11/27/19 13:30 19:03 19:03 Hgb Sodium Potassium BUN Creatinine 3.51 H AST ALT Troponin I 0.044 H B-Natriuretic Peptide Ur Amphetamines Screen Detected H U Methamphetamines Scrn Detected H U Cannabinoids Screen Detected H COVID-19 PCR SARS-CoV-2 (PCR) 11/27/19 11/27/19 11/27/19 19:03 21:58 23:13 Hgb 9.2 L Sodium Potassium BUN Creatinine AST ALT Troponin I 0.042 H B-Natriuretic Peptide Ur Amphetamines Screen U Methamphetamines Scrn U Cannabinoids Screen COVID-19 PCR SARS-CoV-2 (PCR) Not Detected 11/28/19 11/28/19 11/28/19 01:50 05:53 10:35 Hgb Sodium Potassium BUN Creatinine 3.43 H AST ALT Troponin I 0.037 H B-Natriuretic Peptide Ur Amphetamines Screen U Methamphetamines Scrn U Cannabinoids Screen Detected H COVID-19 PCR SARS-CoV-2 (PCR) 11/30/19 11/30/19 02:14 02:14 Hgb Sodium Potassium BUN Creatinine AST ALT Troponin I 0.039 H B-Natriuretic Peptide 945.4 H Ur Amphetamines Screen U Methamphetamines Scrn U Cannabinoids Screen COVID-19 PCR SARS-CoV-2 (PCR) Radiology Reviewed by me: Yes (PCXR - pulm edema) EKG Reviewed by me: Yes (Tele - SR) Hospitalist ROS - Medication Medications: Active Medications Generic Name Dose Route Start Last Admin Trade Name Freq PRN Reason Stop Dose Admin Acetaminophen 1,000 mg 11/27/19 22:57 12/01/19 11:52 Acetaminophen 500 Mg Tab PO 1,000 mg Q6H PRN Administration Mild Pain (1-3) Aspirin 81 mg 11/29/19 09:00 12/01/19 07:47 Aspirin 81 Mg Enteric Coated Tablet PO 81 mg DAILY SIRI Administration Carvedilol 25 mg 11/30/19 17:00 12/01/19 07:48 Carvedilol 25 Mg Tab PO 25 mg BID-WM SIRI Administration Clonidine 0.1 mg 11/28/19 23:24 11/30/19 09:50 Clonidine 0.1 Mg Tab PO 0.1 mg Q4H PRN Administration SBP Greater Than 180 Clonidine 0.1 mg 12/01/19 15:00 12/01/19 15:19 Clonidine 0.1 Mg Tab PO 0.1 mg TID SIRI Administration Enoxaparin Sodium 40 mg 11/28/19 09:00 12/01/19 07:46 Enoxaparin Sodium 40 Mg/0.4 Ml Syringe SC 40 mg 09 SIRI Administration Hydralazine HCl 100 mg 11/30/19 15:00 12/01/19 15:20 Hydralazine 25 Mg Tab PO 100 mg TID SIRI Administration Isosorbide Mononitrate 30 mg 11/29/19 09:00 12/01/19 07:48 Isosorbide Mononitrate Er 30 Mg Tab PO 30 mg DAILY SIRI Administration Labetalol HCl 20 mg 11/27/19 22:57 12/01/19 11:36 Labetalol Hcl 100 Mg/20 Ml Vial SLOW IVP 4 ml Q4H PRN Administration SBP > 180 and HR >/= 70 Nifedipine 60 mg 11/29/19 09:00 12/01/19 07:47 Nifedipine Xl 60 Mg Tab PO 60 mg DAILY SIRI Administration Ranolazine 500 mg 11/29/19 21:00 12/01/19 07:47 Ranolazine 500 Mg Tab PO 500 mg BID SIRI Administration Sodium Chloride 10 ml 11/28/19 09:00 12/01/19 07:51 Flush - Normal Saline 10 Ml Syringe IVF 10 ml Q12HR SIRI Administration Sodium Chloride 10 ml 11/27/19 23:01 11/30/19 02:27 Flush - Normal Saline 10 Ml Syringe IVF 10 ml PRN PRN Administration Saline Flush - Exam General Appearance: NAD, awake alert Eye: PERRL, anicteric sclera ENT: normocephalic atraumatic, no oropharyngeal lesions Neck: supple, symmetric, no JVD, no thyromegaly Heart: RRR, no gallops, no rubs, normal peripheral pulses Heart - other findings: S1, S2 Respiratory: no wheezes, no tachypnea Respiratory - other findings: few coarse sounds o/w clear Gastrointestinal: soft, non-tender, non-distended, normal bowel sounds, no pa lpable masses Extremities: no cyanosis, no clubbing, no edema Skin: normal turgor, no lesions Neurological: cranial nerve grossly intact, no new deficit Musculoskeletal: normal tone, normal strength, no muscle wasting Psychiatric: normal affect, A&O x 3 Hosp A/P (1) Hypertensive urgency Code(s): I16.0 - HYPERTENSIVE URGENCY Status: Acute Plan: Improved, continue titration of BP regimen for optimal response (2) NSTEMI (non-ST elevated myocardial infarction) Code(s): I21.4 - NON-ST ELEVATION (NSTEMI) MYOCARDIAL INFARCTION Status: Acute Plan: Type II MO due to HTN and demand ischemia, plan for PROGRAM ELIGIBILITY SPECIALIST (3) CKD (chronic kidney disease), stage IV Code(s): N18.4 - CHRONIC KIDNEY DISEASE, STAGE 4 (SEVERE) Status: Chronic Plan: Avoid nephrotoxic meds and limit contrast exposure (4) Anemia due to chronic kidney disease Code(s): N18.9 - CHRONIC KIDNEY DISEASE, UNSPECIFIED; D63.1 - ANEMIA IN CHRONIC KIDNEY DISEASE Status: Chronic Plan: Stable H/H, serial monitoring (5) Cannabis abuse Code(s): F12.10 - CANNABIS ABUSE, UNCOMPLICATED Status: Chronic - Plan out of bed/ambulate, DVT proph w/SCDs Stable currently Plan for PROGRAM ELIGIBILITY SPECIALIST in am Continue current BP regimen Continue ASA AM lab: BMP, H/H
[2019-12-02 04:34] LABS: Hemoglobin 9.5 g/dL (14.0-18.0); Platelet Count 208 thou/uL (130-400)
[2019-12-02 04:58] LABS: Anion Gap 15 mmol/L (10-20); BUN (Urea Nitrogen) 54 mg/dL (8.9-20.6); Calc. Creatinine Clearance 30 mL/min (70-130); Carbon Dioxide 19 mmol/L (22-29); Chloride 104 mmol/L (98-107); Estimated GFR-MDRD 18; Glucose 99 mg/dL (70-105); Potassium 4.2 mmol/L (3.5-5.1); Sodium 134 mmol/L (136-145)
[2019-12-02] MEDS: NIFEdipine XL 60 MG TAB PO SCH (09:00)
[2019-12-02] MEDS: hydrALAZINE 25 MG TAB PO SCH ×3 (09:01→21:29)
[2019-12-02] MEDS: cloNIDine 0.1 MG TAB PO SCH ×3 (09:01→21:29)
[2019-12-02] MEDS ORDERED: ADENOSINE 60 MG/20 ML VIAL ONE (09:17)
[2019-12-02] MEDS: Enoxaparin Sodium 40 MG/0.4 ML SYRINGE SC SCH (11:47)
[2019-12-02] MEDS: Carvedilol 25 MG TAB PO SCH ×2 (11:47→16:34)
[2019-12-02] MEDS: Aspirin 81 mg Enteric Coated Tablet PO SCH (11:47)
--- NOTE | 2019-12-02 12:02 | NM ---
Exam: Nuclear medicine cardiac stress with EF and wall motion HISTORY: Chest pain. COMPARISON: None TECHNIQUE: Patient was ministered 9.4 mCi of technetium 99m sestamibi for rest imaging and 28.2 mCi o f technetium 9.4 mCi sestamibi for stress imaging. Cardiac gating is performed FINDINGS: Homogeneous distribution of the radiotracer in the left ventricle on the attenuated correction stress . No reversibility. No fixed defect TID: 1.09 End-diastolic volume is 177 mL End-systolic volume is 79 mL Cardiac gating: Normal wall motion and thickening. 55% ejection fraction IMPRESSION: 1. No reversibility or fixed defect 2. 55% ejection fraction. 2. Enlarged left ventricle.
--- NOTE | 2019-12-02 14:06 | PRG ---
DATE OF SERVICE: 12/02/2019 SUBJECTIVE: Patient was seen and examined at bedside and overnight events noted. Patient denies any shortness of breath or chest pain or palpitation. No history of nausea or vomiting or diarrhea or fever or chills or cramps. OBJECTIVE: GENERAL: This is a well-built male, in no apparent distress. VITAL SIGNS: Temperature 98.4. Heart Rate 80. Respiratory rate 18. Blood Pressure 175/104. HEENT: Atraumatic, normocephalic. Oral mucosa is moist. NECK: Supple. CARDIOVASCULAR: S1, S2 heard. Rate and rhythm regular. RESPIRATORY: Clear to auscultation. GASTROINTESTINAL: Abdomen is soft. MUSCULOSKELETAL: No tenderness. No edema. DERMATOLOGIC: No skin rash. NEUROLOGIC: Alert and awake and oriented x3. No focal neurologic deficits. Moving all the extremities. PSYCHIATRIC: Mood and affect normal. LABORATORY DATA: Potassium 4.2, BUN is 54, creatinine is 3.6. ASSESSMENT AND PLAN: 1. Acute kidney injury on chronic kidney disease stage 4, stable. 2. Edema. 3. Hypertension. 4. Hyponatremia. 5. History of substance abuse. Labs are stable. No acute indication for dialysis. We will monitor. Job ID: [id number]
--- NOTE | 2019-12-02 15:28 | PDOC.HOSPP ---
- Subjective Encounter Date: 12/02/19 Encounter Time: 15:25 Subjective: f/u for HTN urgency/CKD and CP. No new complaints currently. - Objective Vital Signs & Weight: Vital Signs (12 hours) Temp Pulse Resp BP Pulse Ox 12/02/19 15:15 97.5 F L 76 18 170/99 H 98 12/02/19 14:04 80 166/100 H 12/02/19 12:41 158/96 H 12/02/19 11:43 98.4 F 80 175/104 H 98 12/02/19 07:23 98.8 F 75 16 156/104 H 96 12/02/19 05:00 97.7 F 75 16 141/81 H 93 L Weight Weight 184 lb 11.2 oz I&O: 12/01/19 12/02/19 12/03/19 06:59 06:59 06:59 Intake Total 2570 918 Output Total 1775 2500 Balance 795 -1582 Result Diagrams: 12/02/19 04:07 12/02/19 04:07 Additional Labs: Laboratory Tests 10/04/19 10/04/19 10/09/19 17:13 17:13 12:54 Hgb Sodium Potassium BUN Creatinine AST 74 H 105 H ALT 78 H 115 H Troponin I B-Natriuretic Peptide 1727.2 H Ur Amphetamines Screen U Methamphetamines Scrn U Cannabinoids Screen COVID-19 PCR SARS-CoV-2 (PCR) 10/18/19 10/18/19 10/18/19 20:08 20:08 20:08 Hgb 11.0 L Sodium 134 L Potassium 4.5 BUN 34 H Creatinine 3.86 H AST 67 H ALT 67 H Troponin I B-Natriuretic Peptide 760.3 H Ur Amphetamines Screen U Methamphetamines Scrn U Cannabinoids Screen COVID-19 PCR SARS-CoV-2 (PCR) 10/18/19 10/18/19 10/19/19 20:08 23:35 00:25 Hgb Sodium Potassium BUN Creatinine AST ALT Troponin I 0.029 H 0.034 H B-Natriuretic Peptide Ur Amphetamines Screen U Methamphetamines Scrn U Cannabinoids Screen COVID-19 PCR Not Detected SARS-CoV-2 (PCR) 10/19/19 10/19/19 10/19/19 03:04 03:04 03:04 Hgb 11.0 L Sodium 136 Potassium 3.2 L BUN 34 H Creatinine 3.86 H AST ALT Troponin I 0.041 H B-Natriuretic Peptide Ur Amphetamines Screen U Methamphetamines Scrn U Cannabinoids Screen COVID-19 PCR SARS-CoV-2 (PCR) 10/19/19 11/27/19 11/27/19 13:30 19:03 19:03 Hgb Sodium Potassium BUN Creatinine 3.51 H AST ALT Troponin I 0.044 H B-Natriuretic Peptide Ur Amphetamines Screen Detected H U Methamphetamines Scrn Detected H U Cannabinoids Screen Detected H COVID-19 PCR SARS-CoV-2 (PCR) 11/27/19 11/27/19 11/27/19 19:03 21:58 23:13 Hgb 9.2 L Sodium Potassium BUN Creatinine AST ALT Troponin I 0.042 H B-Natriuretic Peptide Ur Amphetamines Screen U Methamphetamines Scrn U Cannabinoids Screen COVID-19 PCR SARS-CoV-2 (PCR) Not Detected 11/28/19 11/28/19 11/28/19 01:50 05:53 10:35 Hgb Sodium Potassium BUN Creatinine 3.43 H AST ALT Troponin I 0.037 H B-Natriuretic Peptide Ur Amphetamines Screen U Methamphetamines Scrn U Cannabinoids Screen Detected H COVID-19 PCR SARS-CoV-2 (PCR) 11/30/19 11/30/19 11/30/19 02:14 02:14 02:14 Hgb Sodium Potassium BUN 44 H Creatinine 3.20 H AST ALT Troponin I 0.039 H B-Natriuretic Peptide 945.4 H Ur Amphetamines Screen U Methamphetamines Scrn U Cannabinoids Screen COVID-19 PCR SARS-CoV-2 (PCR) Radiology Reviewed by me: Yes (BUSINESS SYSTEMS ADVISOR - no reversible ischemia, EF 55%) EKG Reviewed by me: Yes (Tele - SR) Hospitalist ROS - Medication Medications: Active Medications Generic Name Dose Route Start Last Admin Trade Name Freq PRN Reason Stop Dose Admin Acetaminophen 1,000 mg 11/27/19 22:57 12/01/19 22:02 Acetaminophen 500 Mg Tab PO 1,000 mg Q6H PRN Administration Mild Pain (1-3) Aspirin 81 mg 11/29/19 09:00 12/02/19 11:47 Aspirin 81 Mg Enteric Coated Tablet PO 81 mg DAILY SIRI Administration Carvedilol 25 mg 11/30/19 17:00 12/02/19 11:47 Carvedilol 25 Mg Tab PO 25 mg BID-WM SIRI Administration Clonidine 0.1 mg 11/28/19 23:24 11/30/19 09:50 Clonidine 0.1 Mg Tab PO 0.1 mg Q4H PRN Administration SBP Greater Than 180 Clonidine 0.1 mg 12/01/19 15:00 12/02/19 14:04 Clonidine 0.1 Mg Tab PO 0.1 mg TID SIRI Administration Enoxaparin Sodium 40 mg 11/28/19 09:00 12/02/19 11:47 Enoxaparin Sodium 40 Mg/0.4 Ml Syringe SC 40 mg 0900 SIRI Administration Hydralazine HCl 100 mg 11/30/19 15:00 12/02/19 14:04 Hydralazine 25 Mg Tab PO 100 mg TID SIRI Administration Isosorbide Mononitrate 30 mg 11/29/19 09:00 12/02/19 11:47 Isosorbide Mononitrate Er 30 Mg Tab PO 30 mg DAILY SIRI Administration Labetalol HCl 20 mg 11/27/19 22:57 12/01/19 11:36 Labetalol Hcl 100 Mg/20 Ml Vial SLOW IVP 4 ml Q4H PRN Administration SBP > 180 and HR >/= 70 Sodium Chloride 10 ml 11/28/19 09:00 12/02/19 11:48 Flush - Normal Saline 10 Ml Syringe IVF 10 ml Q12HR SIRI Administration Sodium Chloride 10 ml 11/27/19 23:01 11/30/19 02:27 Flush - Normal Saline 10 Ml Syringe IVF 10 ml PRN PRN Administration Saline Flush - Exam General Appearance: NAD, awake alert Eye: PERRL, anicteric sclera ENT: normocephalic atraumatic, no oropharyngeal lesions Neck: supple, symmetric, no JVD, no thyromegaly, no lymphadenopathy Heart: RRR, no murmur, no gallops, no rubs, normal peripheral pulses Respiratory: CTAB, no wheezes, no rales, no ronchi, normal chest expansion Gastrointestinal: soft, non-tender, non-distended, normal bowel sounds, no palpable masses Extremities: no cyanosis, no clubbing, no edema Skin: normal turgor Neurological: cranial nerve grossly intact, no new deficit Musculoskeletal: normal tone, normal strength, no muscle wasting Psychiatric: normal affect, A&O x 3 Hosp A/P (1) Hypertensive urgency Code(s): I16.0 - HYPERTENSIVE URGENCY Status: Acute Plan: HTN labile, resume BP regimen post-BUSINESS SYSTEMS ADVISOR, serial monitoring (2) NSTEMI (non-ST elevated myocardial infarction) Code(s): I21.4 - NON-ST ELEVATION (NSTEMI) MYOCARDIAL INFARCTION Status: Acute Plan: BUSINESS SYSTEMS ADVISOR without reversible ischemia, EF 55% (3) CKD (chronic kidney disease), stage IV Code(s): N18.4 - CHRONIC KIDNEY DISEASE, STAGE 4 (SEVERE) Status: Chronic (4) Anemia due to chronic kidney disease Code(s): N18.9 - CHRONIC KIDNEY DISEASE, UNSPECIFIED; D63.1 - ANEMIA IN CHRONIC KIDNEY DISEASE Status: Chronic (5) Cannabis abuse Code(s): F12.10 - CANNABIS ABUSE, UNCOMPLICATED Status: Chronic - Plan Stable currently Resume BP regimen Counseled regarding need to avoid substance abuse Continue ASA OOB/ambulate AM lab: BMP Likely home in am
[2019-12-03] MEDS: Acetaminophen 500 MG TAB PO PRN (02:24)
[2019-12-03 05:04] LABS: Anion Gap 12 mmol/L (10-20); BUN (Urea Nitrogen) 52 mg/dL (8.9-20.6); Calc. Creatinine Clearance 31 mL/min (70-130); Calcium 8.6 mg/dL (7.8-10.44); Carbon Dioxide 19 mmol/L (22-29); Chloride 103 mmol/L (98-107); Estimated GFR-MDRD 19; Glucose 92 mg/dL (70-105); Potassium 4.1 mmol/L (3.5-5.1); Sodium 130 mmol/L (136-145)
[2019-12-03 07:35] VITALS: TEMP 97.7
[2019-12-03] MEDS: Carvedilol 25 MG TAB PO SCH (08:43)
[2019-12-03] MEDS: Aspirin 81 mg Enteric Coated Tablet PO SCH (08:43)
[2019-12-03] MEDS: cloNIDine 0.1 MG TAB PO SCH (08:43)
[2019-12-03] MEDS: Enoxaparin Sodium 40 MG/0.4 ML SYRINGE SC SCH (08:43)
[2019-12-03] MEDS: hydrALAZINE 25 MG TAB PO SCH (08:43)
[2019-12-03] MEDS ORDERED: NIFEdipine XL 90 MG TAB PO SCH (09:00)
--- NOTE | 2019-12-03 10:39 | PRG ---
DATE OF SERVICE: 12/03/2019 SUBJECTIVE: A 49-year-old gentleman being seen for acute kidney injury. The patient denies nausea, vomiting, or chest pain. PHYSICAL EXAMINATION: General: The patient is awake and alert. Vital Signs: Afebrile, pulse 74, breathing at 16, blood pressure 162/98. HEENT: Head normocephalic and atraumatic. Eyes intact, no ulcers. Nose intact, no ulcers. Ears intact, no ulcers. Neck: Supple. No JVD. Chest: Symmetrical and clear. Cardiovascular: Shows S1 and S2, no rub, no murmur. Gastrointestinal: Abdomen is soft, bowel sounds positive. Extremities: Show no edema or ulcers. Skin: Shows no rash or petechiae. Musculoskeletal: Shows no joint swelling or stiffness. Genitourinary: Shows no Anton or CVA tenderness. Neurologic: Motor intact. Cranial nerves intact. LABORATORY DATA: Labs show hemoglobin 9.5. Creatinine 3.4. ASSESSMENT AND PLAN: Chronic kidney disease stage 4, stable. Hypertension, stable. Anemia, stable. Metabolic acidosis, stable. No indication for dialysis at this time. Job ID: [id number]
[2019-12-03 11:26] VITALS: BP 128/75
--- NOTE | 2019-12-03 11:37 | DIS ---
DATE OF ADMISSION: 11/28/2019 DATE OF DISCHARGE: 12/03/2019 DISCHARGE DIAGNOSES: 1. Hypertensive urgency, improved. 2. Type 2 non-ST elevation myocardial infarction due to demand ischemia secondarily to #1. 3. Chronic kidney disease stage 4. 4. Anemia due to chronic kidney disease. 5. Cannabis abuse. CONSULTATIONS: 1. Dr. Humphreys and Dr. Sidhu with Nephrology Service. 2. Dr. Noyola with Cardiology Service. PERTINENT LABORATORY AND X-RAY FINDINGS: Sodium ranged between 130 to 135, creatinine ranged between 3.20 to 3.68. Estimated GFR ranged between 18 to 21. Lactic acid level 0.5. Magnesium level ranged between 1.9 to 2.1. Troponin I ranged between 0.037 to 0.044. BNP 945. Vitamin B12 level 345. Folate level 7.80. TSH 1.52. CBC showed a hemoglobin ranging between 9.2 to 9.6. Urine drug screen dated 11/28/2019 positive for cannabis. COVID-19 PCR not detected 11/27/2019. Portable chest x-ray dated 11/27/2019 showed no acute cardiopulmonary process. Cardiolite stress test dated 12/02/2019, showed no reversible or fixed ischemia with calculated ejection fraction of 55%. HOSPITAL COURSE: The patient initially presented with recurrent hypertensive urgency in the context of running out of his home medication and a history of noncompliance with medical therapy. The patient was initially resumed on his chronic antihypertensive regimen with labile blood pressure noted throughout the hospital course. The patient underwent a Cardiolite stress testing due to elevated troponin I with the test showing no evidence of reversible or fixed ischemia with calculated ejection fraction of 55%. The patient was titrated on his blood pressure regimen with overall improved trend prior to discharge. I have examined the patient at the time of discharge and discussed followup instructions and the importance of consistent blood pressure monitoring and consistency with maintaining his prescriptions. The patient verbalizes understanding and agreement, ready for discharge on 12/03/2019. DISCHARGE MEDICATIONS: 1. Clonidine 0.1 mg p.o. t.i.d. 2. Coreg 25 mg p.o. b.i.d. 3. Enteric-coated aspirin 81 mg p.o. daily. 4. Hydralazine 100 mg p.o. t.i.d. 5. Isosorbide mononitrate 30 mg p.o. daily. 6. Nifedipine XL 90 mg p.o. daily. FOLLOWUP: The patient may follow up with [place], [place] within 3 to 5 days of discharge. CONDITION ON DISCHARGE: Fair. ACTIVITY: Ad-ivet. DIET: Renal. CODE STATUS: Full. DISPOSITION: To home, 12/03/2019. TIME SPENT: Total time preparing and coordinating discharge is 32 minutes. Job ID: [id number]
== END 2019-12-03 14:50 | disposition home or self-care (01) | DRG 280 ==
LOC: ERS 18:44 → 2SW 20:51 → ERS 22:10 → OBSVTOIN 11-28 15:23 → 2NO 11-28 18:36
PROVIDERS: ADMIT Internal Medicine; ATTEND Internal Medicine
DX: I16.0 Hypertensive urgency (principal); I21.A1 Myocardial infarction type 2; J96.01 Acute respiratory failure with hypoxia; N18.4 Chronic kidney disease, stage 4 (severe); N17.9 Acute kidney failure, unspecified; E87.2 Acidosis; Z20.828 Contact with and (suspected) exposure to other viral communicable diseases; D63.1 Anemia in chronic kidney disease; F12.10 Cannabis abuse, uncomplicated; B19.20 Unspecified viral hepatitis C without hepatic coma; F17.210 Nicotine dependence, cigarettes, uncomplicated; I12.9 Hypertensive chronic kidney disease with stage 1 through stage 4 chronic kidney disease, or unspecified chronic kidney disease; I25.10 Atherosclerotic heart disease of native coronary artery without angina pectoris; F15.10 Other stimulant abuse, uncomplicated; I25.2 Old myocardial infarction; Z86.73 Personal history of transient ischemic attack (TIA), and cerebral infarction without residual deficits; Z79.899 Other long term (current) drug therapy; Z91.19 Patient's noncompliance with other medical treatment and regimen; Z79.82 Long term (current) use of aspirin
CPT/HCPCS: 36415; 71045; 78452; 80048; 80053; 80306; 82553; 82607; 82746; 83605; 83735; 83880; 84443; 84484; 85014; 85018; 85025; 85027; 85049; 87635; 93005; 93010; 93017; 94760; 96372; A9500; G0378; J0153; J1650; J1940; J2270; U0003

== ENCOUNTER 2019-12-05 09:26 | Emergency (ER) | payer OTHER, SELFPAY ==
[2019-12-05] MEDS ORDERED: cloNIDine 0.1 MG TAB ONE (09:45)
[2019-12-05 09:53] LABS: #Eosinphils 0.3 thou/uL (0.0-0.7); #Lymphocytes 0.8 thou/uL (1.20-3.40); #Monocytes 0.3 thou/uL (0.11-0.59); %Basophils 0.4 % (0.0-1.0); %Eosinophils 4.6 % (0.0-10.0); %Lymphocytes 11.6 % (21.0-51.0); %Monocytes 5.1 % (0.0-10.0); %Neutrophils 78.3 % (42.0-75.0); Hemoglobin 10.2 g/dL (14.0-18.0); Mean Corpuscular HGB CONC 33.8 g/dL (32.0-36.0); Mean Corpuscular Hemoglobin 30.1 pg (27.0-31.0); Platelet Count 226 thou/uL (130-400); RBC Distribution Width 13.6 % (11.5-14.5); Red Blood Cell (RBC) Count 3.39 mill/uL (4.70-6.10); White Blood Cell (WBC) Count 6.4 thou/uL (4.8-10.8)
--- NOTE | 2019-12-05 09:55 | RAD ---
EXAM: Single view of the chest HISTORY: Chest pain COMPARISON: 11/30/2019 FINDINGS: Single view of the chest shows an enlarged but stable cardiomediastinal silhouette. Stable diffuse increased interstitial markings are present. There are questionable subtle superimposed multifocal airspace opacities. No acute osseous abnormality. IMPRESSION: Stable exam
--- NOTE | 2019-12-05 10:23 | CT ---
CT HEAD WITHOUT CONTRAST: Date: 12/05/2019 INDICATION: Headache. Hypertension. Comparison made to head CT of 04/29/2019. 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 TODAY'S FINDINGS: Ventricles have normal size and position. There is a small lucency in the left basal ganglia, which i s new and would be consistent with an old lacunar infarct since the prior study. The hypodensity seen in the white matter, basal ganglia, and brainstem on the prior study is no longer apparent. There is no evidence of acute process. There is no evidence of hemorrhage, mass, or acute infarct. IMPRESSION: No acute findings. POS: [facility]
[2019-12-05 10:41] LABS: CKMB 4.7 ng/mL (0-6.6)
[2019-12-05] MEDS ORDERED: niCARdipine 20MG In NaCl 20 MG/200 ML BAG ONE ×3 (10:46→15:36)
[2019-12-05 11:58] LABS: Albumin 3.8 g/dL (3.5-5.0)
[2019-12-05 11:59] LABS: Chloride 108 mmol/L (98-107); Potassium 4.4 mmol/L (3.5-5.1); Sodium 137 mmol/L (136-145)
[2019-12-05 12:00] LABS: Calcium 9.1 mg/dL (7.8-10.44); Glucose 81 mg/dL (70-105)
[2019-12-05 12:01] LABS: Globulin 3.5 g/dL (2.4-3.5); Protein, Total 7.3 g/dL (6.0-8.3)
[2019-12-05 12:02] LABS: Anion Gap 18 mmol/L (10-20); Bilirubin, Total 0.6 mg/dL (0.2-1.2); Carbon Dioxide 15 mmol/L (22-29)
[2019-12-05 12:03] LABS: Alkaline Phosphatase 122 U/L (40-110); Calc. Creatinine Clearance 0 mL/min (70-130); Estimated GFR-MDRD 15
[2019-12-05 12:04] LABS: BUN (Urea Nitrogen) 64 mg/dL (8.9-20.6)
[2019-12-05 12:05] LABS: AST (SGOT) 39 U/L (5-34)
[2019-12-05 12:06] LABS: ALT (SGPT) 39 U/L (8-55)
[2019-12-05 16:46] LABS: Troponin I 0.071 ng/mL (< 0.028)
[2019-12-06 13:17] LABS: SARS-CoV-2 MS2 Positive; SARS-CoV-2 N Gene Negative; SARS-CoV-2 S Gene Negative; SARS-CoV-2 by NAA Not Detected (NotDetected); SARS-CoV-2 orf1ab Negative
== END 2019-12-05 16:16 | disposition short-term general hospital (02) ==
LOC: ERS 09:26
DX: I16.1 Hypertensive emergency (principal); I10 Essential (primary) hypertension; I25.2 Old myocardial infarction; F17.210 Nicotine dependence, cigarettes, uncomplicated; Z87.19 Personal history of other diseases of the digestive system; Z79.899 Other long term (current) drug therapy; Z86.73 Personal history of transient ischemic attack (TIA), and cerebral infarction without residual deficits
CPT/HCPCS: 36415; 70450; 71045; 80053; 82553; 83880; 84484; 85025; 87635; 93005; 96365; 96366; U0003